=== PATIENT | female | born 1955 | race Caucasian/White ===

== ENCOUNTER → 2017-09-04 13:09 | Outpatient (CLI) | payer OTHER, SELFPAY ==
[2017-09-04 14:44] LABS: Amphetamine Urine VISTA NEGATIVE (<1000 ng/mL); Barbiturate Urine VISTA NEGATIVE (< 200 ng/mL); Benzodiazepine Urine VISTA NEGATIVE (< 200 ng/mL); Cocaine Urine VISTA NEGATIVE (< 300 ng/mL); Ecstacy Urine VISTA NEGATIVE (< 500 ng/mL); Methadone Urine VISTA NEGATIVE (< 300 ng/mL); PCP Urine VISTA NEGATIVE (< 25 ng/mL); THC Urine VISTA NEGATIVE (< 50 ng/mL); Vista UDS pH Range 6
== END ==
PROVIDERS: Family Provider Internal Medicine; PCP Internal Medicine; Visit Provider Anesthesiology Pain Medicine
DX: F11.20 Opioid dependence, uncomplicated (principal)
CPT/HCPCS: 80307

== ENCOUNTER → 2017-09-17 14:21 | Outpatient (CLI) | payer OTHER, SELFPAY ==
[2017-09-17 15:58] LABS: Albumin, Serum 3.1 g/dL (3.2-5.0); BUN 16 mg/dL (7-18); BUN/Creat Ratio 19.3 RATIO (10-20); Creatinine, Serum 0.83 mg/dL (0.55-1.02); EST Glomerular Filtration Rate 74 mL/min (>60); Est Glom Filt Rate - Afr Amer 89 mL/min (>60); Glucose 62 mg/dL (74-106); Protein, Total 6.4 g/dL (6.4-8.2)
[2017-09-17 15:59] LABS: ALB/GLOB Ratio 0.9 RATIO (0.9-2.4); AST(SGOT) 21 U/L (15-37); Alanine Aminotransfer ALT/SGPT 18 U/L (13-56); Alkaline Phosphatase 78 U/L (45-117); Anion Gap 6 (5-15); Calcium,Total 7.7 mg/dL (8.5-10.1); Chloride 108 mmol/L (98-107); Globulin 3.3 g/dL (2.2-4.2); Sodium Level 139 mmol/L (136-145)
[2017-09-17 16:06] LABS: Absolute Lymphocyte Count 1.63 X10^3/ul (0.83-4.51); Basophil# 0.06 X10^3/uL; Basophil% 1.3 % (0-1); Eosinophil# 0.22 X10^3/uL; Eosinophils% 4.9 % (0-5); Hemoglobin 10.9 g/dl (12.0-15.0); Lymphocyte # 1.63 X10^3/ul (4.0); Lymphocyte % 36.5 % (19-41); Mean Corp Hgb Conc 30.3 g/gl (32-36); Mean Corpuscular Hgb 30.7 pg (27.0-32.0); Mean Corpuscular Volume 101.4 fL (81-99); Mean Platelet Vol. 9.5 fl (6.2-12.0); Monocyte# 0.53 X10^3/uL; Monocyte% 11.9 % (0-10); Neutrophil # 2.01 X10^3/uL (2.7-7.7); Platelet Count 200 K/mm3 (150-450); RBC Distribution Width SD 54.8 fl (35.1-43.9); Red Blood Count 3.55 M/mm3 (4.2-5.4); White Blood Count 4.5 K/mm3 (4.4-11.0)
[2017-09-17 16:53] LABS: POSITIVE COUNT NO; POSITIVE DIFFERENTIAL NO; POSITIVE MORPHOLOGY NO
== END ==
PROVIDERS: Family Provider Internal Medicine; PCP Internal Medicine; Visit Provider Internal Medicine Rheumatology
DX: M06.4 Inflammatory polyarthropathy (principal); M06.09 Rheumatoid arthritis without rheumatoid factor, multiple sites; M18.11 Unilateral primary osteoarthritis of first carpometacarpal joint, right hand; M17.0 Bilateral primary osteoarthritis of knee; M21.40 Flat foot [pes planus] (acquired), unspecified foot; L63.9 Alopecia areata, unspecified; M79.7 Fibromyalgia; M81.0 Age-related osteoporosis without current pathological fracture; Z79.899 Other long term (current) drug therapy
CPT/HCPCS: 36415; 80053; 85025

== ENCOUNTER → 2017-09-30 17:09 | Outpatient (CLI) | payer OTHER, SELFPAY ==
[2017-09-30 17:32] LABS: Absolute Lymphocyte Count 2.05 X10^3/ul (0.83-4.51); Absolute Neutrophil Count 2.4 X10^3/uL (2.0-7.7); Basophil# 0.03 X10^3/uL; Basophil% 0.6 % (0-1); Eosinophil# 0.25 X10^3/uL; Eosinophils% 4.8 % (0-5); Hematocrit 37.2 % (37-47); Hemoglobin 11.7 g/dl (12.0-15.0); Lymphocyte # 2.05 X10^3/ul (4.0); Mean Corp Hgb Conc 31.5 g/gl (32-36); Mean Corpuscular Hgb 31.6 pg (27.0-32.0); Mean Corpuscular Volume 100.5 fL (81-99); Mean Platelet Vol. 9.2 fl (6.2-12.0); Monocyte# 0.48 X10^3/uL; Monocyte% 9.1 % (0-10); Neutrophil # 2.44 X10^3/uL (2.7-7.7); Neutrophil % 46.3 % (47-70); POSITIVE COUNT NO; POSITIVE DIFFERENTIAL NO; POSITIVE MORPHOLOGY NO; Platelet Count 150 K/mm3 (150-450); RBC Distribution Width SD 50.3 fl (35.1-43.9); White Blood Count 5.3 K/mm3 (4.4-11.0)
[2017-09-30 18:09] LABS: AST(SGOT) 33 U/L (15-37); Alanine Aminotransfer ALT/SGPT 28 U/L (13-56); Albumin, Serum 3.4 g/dL (3.2-5.0); Alkaline Phosphatase 78 U/L (45-117); Anion Gap 7 (5-15); BUN 22 mg/dL (7-18); CPK Total, Creatine Kinase 50 U/L (26-192); Calcium,Total 8.1 mg/dL (8.5-10.1); Chloride 108 mmol/L (98-107); EST Glomerular Filtration Rate 53 mL/min (>60); Est Glom Filt Rate - Afr Amer 64 mL/min (>60); Globulin 3.3 g/dL (2.2-4.2); Glucose 81 mg/dL (74-106); Protein, Total 6.7 g/dL (6.4-8.2); Sodium Level 138 mmol/L (136-145)
== END ==
PROVIDERS: Family Provider Internal Medicine; PCP Internal Medicine; Visit Provider Internal Medicine
DX: G25.3 Myoclonus (principal); L85.3 Xerosis cutis
CPT/HCPCS: 36415; 80053; 82550; 84443; 85025

== ENCOUNTER → 2017-10-23 12:00 | Outpatient (CLI) | payer OTHER, SELFPAY ==
[2017-10-23 14:53] LABS: Thyroid Stim Hormone (TSH) 0.17 uIU/mL (0.358-3.74)
== END ==
PROVIDERS: Family Provider Internal Medicine; PCP Internal Medicine; Visit Provider Internal Medicine
DX: E03.9 Hypothyroidism, unspecified (principal)
CPT/HCPCS: 36415; 84443

== ENCOUNTER → 2017-10-28 16:40 | Outpatient (CLI) | payer OTHER, SELFPAY ==
--- NOTE | 2017-10-28 16:41 | CT_ITS ---
STUDY: CT ABDOMEN AND PELVIS WITH CONTRAST REASON FOR EXAM: Female, 62 years old. Abdominal pain RADIATION DOSAGE (If Supplied By Facility): CTDIvol = ( 9.99 ) mGy, DLP = ( 487.81 ) mGycm TECHNIQUE: Transaxial images were obtained from the dome of the diaphragm to the symphysis pubis without oral contrast. 100CC ml of Isovue 300 contrast was administered. Sagittal and coronal images were reconstructed. Individualized dose optimization techniques were used for this CT. COMPARISON: January 31, 2016. FINDINGS: The visualized lung bases are unremarkable. The visualized portions of the heart are within normal limits. There is again noted a 5 x 1.5 cm collection lateral to the right hepatic lobe. Status post cholecystectomy. Dilatation of the biliary system. Normal spleen. Normal pancreas. Normal bilateral adrenal glands. Normal right kidney. 2.6 cm cyst in the left kidney. Prior surgery of the stomach. Mile ileus of the small intestine. Fecal retention of the colon. The appendix is not visualized. Calcified abdominal aorta. There is a filter in the inferior vena cava. Normal retroperitoneum. There is again noted a diverticulum of the urinary bladder extending into the left inguinal region. Normal abdominal wall. Vertebral scoliosis. A spinal stimulator is noted. CT/Abdomen/Pelvis WITH Contrast IMPRESSION: Stable fluid collection lateral to the right hepatic lobe. Status post cholecystectomy. Biliary dilatation. Left hepatic cyst. Mild small bowel ileus. Colonic fecal retention. Stable diverticulum of the urinary bladder. Electronically Signed: Chan Ashley DO at 22:50 EDT Tel [phone], Service support ,
== END ==
PROVIDERS: Family Provider Internal Medicine; PCP Internal Medicine; Visit Provider Internal Medicine
DX: R10.84 Generalized abdominal pain (principal)
CPT/HCPCS: 74177; Q9967

== ENCOUNTER → 2017-12-10 14:44 | Outpatient (CLI) | payer OTHER, SELFPAY ==
[2017-12-10 17:47] LABS: Absolute Lymphocyte Count 2.16 X10^3/ul (0.83-4.51); Basophil# 0.04 X10^3/uL; Basophil% 0.8 % (0-1); Eosinophil# 0.13 X10^3/uL; Eosinophils% 2.6 % (0-5); Hematocrit 33.6 % (37-47); Hemoglobin 10.4 g/dl (12.0-15.0); Lymphocyte # 2.16 X10^3/ul (4.0); Lymphocyte % 43.9 % (19-41); Mean Corpuscular Hgb 30.5 pg (27.0-32.0); Mean Corpuscular Volume 98.5 fL (81-99); Mean Platelet Vol. 9.8 fl (6.2-12.0); Monocyte# 0.54 X10^3/uL; Neutrophil # 2.03 X10^3/uL (2.7-7.7); Neutrophil % 41.3 % (47-70); Platelet Count 195 K/mm3 (150-450); RBC Distribution Width CV 13.4 % (11.6-14.6); RBC Distribution Width SD 46.3 fl (35.1-43.9); Red Blood Count 3.41 M/mm3 (4.2-5.4); White Blood Count 4.9 K/mm3 (4.4-11.0)
[2017-12-10 17:51] LABS: POSITIVE COUNT NO; POSITIVE DIFFERENTIAL NO; POSITIVE MORPHOLOGY NO
[2017-12-10 18:06] LABS: ALB/GLOB Ratio 1.2 RATIO (0.9-2.4); AST(SGOT) 18 U/L (15-37); Alanine Aminotransfer ALT/SGPT 24 U/L (13-56); Albumin, Serum 3.4 g/dL (3.2-5.0); Alkaline Phosphatase 73 U/L (45-117); Anion Gap 7 (5-15); BUN 24 mg/dL (7-18); BUN/Creat Ratio 35.5 RATIO (10-20); Calcium,Total 8.5 mg/dL (8.5-10.1); Chloride 110 mmol/L (98-107); Creatinine, Serum 0.68 mg/dL (0.55-1.02); EST Glomerular Filtration Rate 93 mL/min (>60); Est Glom Filt Rate - Afr Amer 113 mL/min (>60); Globulin 2.8 g/dL (2.2-4.2); Glucose 75 mg/dL (74-106); Potassium 3.7 mmol/L (3.5-5.1); Protein, Total 6.2 g/dL (6.4-8.2); Sodium Level 143 mmol/L (136-145)
[2017-12-10 18:12] LABS: Thyroid Stim Hormone (TSH) 0.02 uIU/mL (0.358-3.74)
== END ==
PROVIDERS: Internal Medicine Rheumatology; Family Provider Internal Medicine; PCP Internal Medicine; Visit Provider Internal Medicine
DX: M06.09 Rheumatoid arthritis without rheumatoid factor, multiple sites (principal); M79.7 Fibromyalgia; M18.11 Unilateral primary osteoarthritis of first carpometacarpal joint, right hand; M17.0 Bilateral primary osteoarthritis of knee; M21.40 Flat foot [pes planus] (acquired), unspecified foot; M81.0 Age-related osteoporosis without current pathological fracture; L63.9 Alopecia areata, unspecified; F32.89 Other specified depressive episodes; F41.8 Other specified anxiety disorders; E03.9 Hypothyroidism, unspecified; G47.00 Insomnia, unspecified; Z79.899 Other long term (current) drug therapy
CPT/HCPCS: 36415; 80053; 84443; 85025

== ENCOUNTER → 2017-12-16 14:28 | Outpatient (CLI) | payer OTHER, SELFPAY ==
--- NOTE | 2017-12-16 14:31 | RAD_ITS ---
STUDY: X-RAY - ABDOMEN/PELVIS REASON FOR EXAM: Female, 62 years old. Diarrhea. Abdominal pain. Prior gastric bypass surgery. TECHNIQUE: AP supine and upright views of the abdomen and pelvis. COMPARISON: Comparison is made with prior examination dated February 21, 2016. FINDINGS: There is elevation of the left hemidiaphragm with the stable blunting of the left costophrenic angle. Gas is seen throughout the colon. Air-fluid levels are seen. Surgical clips are seen in the left mid abdomen most likely secondary to prior bowel surgery. There is no demonstrated free abdominal air. A filter is seen within the inferior vena cava. Surgical clips are seen in the epigastric region in keeping with prior gastric bypass surgery. A spinal cord stimulator is seen with the tip at the T10-T11 level. There are calcified phleboliths in the pelvis. Mild levoscoliosis. RAD/Abd Inc Decub and/or Erect IMPRESSION: Air fluid levels within the colon in keeping with a history of diarrhea. Radiographic follow-up is recommended. Electronically Signed: Sj Schaefer MD at 15:17 EDT Tel [phone], Service support ,
[2017-12-16 14:58] LABS: Absolute Lymphocyte Count 1.89 X10^3/ul (0.83-4.51); Absolute Neutrophil Count 1.3 X10^3/uL (2.0-7.7); Basophil# 0.02 X10^3/uL; Basophil% 0.5 % (0-1); Eosinophil# 0.05 X10^3/uL; Eosinophils% 1.3 % (0-5); Hematocrit 36.3 % (37-47); Hemoglobin 11.5 g/dl (12.0-15.0); Lymphocyte # 1.89 X10^3/ul (4.0); Lymphocyte % 50.4 % (19-41); Mean Corp Hgb Conc 31.7 g/gl (32-36); Mean Corpuscular Hgb 30.5 pg (27.0-32.0); Mean Corpuscular Volume 96.3 fL (81-99); Mean Platelet Vol. 10.1 fl (6.2-12.0); Monocyte% 13.3 % (0-10); Neutrophil # 1.29 X10^3/uL (2.7-7.7); Neutrophil % 34.5 % (47-70); Platelet Count 146 K/mm3 (150-450); RBC Distribution Width CV 13.7 % (11.6-14.6); RBC Distribution Width SD 45.7 fl (35.1-43.9); Red Blood Count 3.77 M/mm3 (4.2-5.4); White Blood Count 3.8 K/mm3 (4.4-11.0)
[2017-12-16 15:00] LABS: POSITIVE COUNT NO; POSITIVE DIFFERENTIAL NO; POSITIVE MORPHOLOGY NO
[2017-12-16 15:18] LABS: ALB/GLOB Ratio 1.3 RATIO (0.9-2.4); AST(SGOT) 77 U/L (15-37); Alanine Aminotransfer ALT/SGPT 89 U/L (13-56); Albumin, Serum 3.3 g/dL (3.2-5.0); Alkaline Phosphatase 175 U/L (45-117); Anion Gap 5 (5-15); BUN 13 mg/dL (7-18); BUN/Creat Ratio 20.8 RATIO (10-20); Calcium,Total 7.5 mg/dL (8.5-10.1); Chloride 113 mmol/L (98-107); Creatinine, Serum 0.62 mg/dL (0.55-1.02); EST Glomerular Filtration Rate 102 mL/min (>60); Est Glom Filt Rate - Afr Amer 124 mL/min (>60); Globulin 2.6 g/dL (2.2-4.2); Glucose 68 mg/dL (74-106); Potassium 4.2 mmol/L (3.5-5.1); Protein, Total 5.9 g/dL (6.4-8.2); Sodium Level 143 mmol/L (136-145); Thyroid Stim Hormone (TSH) 0.04 uIU/mL (0.358-3.74)
[2017-12-19 06:59] LABS: Amylase 25 U/L (25-115); Lipase 60 U/L (73-393)
== END ==
PROVIDERS: Family Provider Internal Medicine; PCP Internal Medicine; Visit Provider Internal Medicine
DX: R19.7 Diarrhea, unspecified (principal)
CPT/HCPCS: 74019; 80053; 82150; 83690; 84443; 85025

== ENCOUNTER → 2018-03-07 16:14 | Outpatient (CLI) | payer OTHER, SELFPAY ==
[2018-03-07 17:27] LABS: Absolute Lymphocyte Count 2.23 X10^3/ul (0.83-4.51); Absolute Neutrophil Count 1.7 X10^3/uL (2.0-7.7); Basophil# 0.03 X10^3/uL; Basophil% 0.7 % (0-1); Eosinophil# 0.09 X10^3/uL; Hemoglobin 10.9 g/dl (12.0-15.0); Lymphocyte # 2.23 X10^3/ul (4.0); Lymphocyte % 50.5 % (19-41); Mean Corp Hgb Conc 31.1 g/gl (32-36); Mean Corpuscular Hgb 31.6 pg (27.0-32.0); Mean Corpuscular Volume 101.4 fL (81-99); Mean Platelet Vol. 9.3 fl (6.2-12.0); Monocyte# 0.34 X10^3/uL; Monocyte% 7.7 % (0-10); Neutrophil # 1.73 X10^3/uL (2.7-7.7); Neutrophil % 39.1 % (47-70); Platelet Count 178 K/mm3 (150-450); RBC Distribution Width CV 15.6 % (11.6-14.6); RBC Distribution Width SD 57.4 fl (35.1-43.9); Red Blood Count 3.45 M/mm3 (4.2-5.4); White Blood Count 4.4 K/mm3 (4.4-11.0)
[2018-03-07 17:32] LABS: ALB/GLOB Ratio 1.4 RATIO (0.9-2.4); AST(SGOT) 17 U/L (15-37); Alanine Aminotransfer ALT/SGPT 20 U/L (13-56); Albumin, Serum 3.7 g/dL (3.2-5.0); Alkaline Phosphatase 69 U/L (45-117); Anion Gap 7 (5-15); BUN 23 mg/dL (7-18); BUN/Creat Ratio 26.7 RATIO (10-20); Calcium,Total 8.3 mg/dL (8.5-10.1); Chloride 114 mmol/L (98-107); Creatinine, Serum 0.86 mg/dL (0.55-1.02); EST Glomerular Filtration Rate 70 mL/min (>60); Est Glom Filt Rate - Afr Amer 85 mL/min (>60); Globulin 2.7 g/dL (2.2-4.2); Glucose 53 mg/dL (74-106); Protein, Total 6.4 g/dL (6.4-8.2); Sodium Level 148 mmol/L (136-145)
[2018-03-07 17:37] LABS: POSITIVE COUNT NO; POSITIVE DIFFERENTIAL NO; POSITIVE MORPHOLOGY NO
== END ==
PROVIDERS: Family Provider Internal Medicine; PCP Internal Medicine; Visit Provider Internal Medicine Rheumatology
DX: M06.09 Rheumatoid arthritis without rheumatoid factor, multiple sites (principal); M18.11 Unilateral primary osteoarthritis of first carpometacarpal joint, right hand; M17.0 Bilateral primary osteoarthritis of knee; M79.7 Fibromyalgia; E03.9 Hypothyroidism, unspecified; M21.40 Flat foot [pes planus] (acquired), unspecified foot; M81.0 Age-related osteoporosis without current pathological fracture; L63.9 Alopecia areata, unspecified; F32.89 Other specified depressive episodes; F41.8 Other specified anxiety disorders; Z79.899 Other long term (current) drug therapy
CPT/HCPCS: 36415; 80053; 85025

== ENCOUNTER 2018-05-18 20:58 | Emergency (ER) | payer OTHER, SELFPAY ==
[2018-05-18 20:59] VITALS: BP 125/82; PULSE 75; RESP 18; TEMP 35.9; O2SAT 100
--- NOTE | 2018-05-18 22:44 | CT_ITS ---
STUDY: CT BRAIN WITHOUT CONTRAST REASON FOR EXAM: Female, 62 years old. Confusion. RADIATION DOSAGE (If Supplied By Facility): CTDIvol = ( 44.99 ) mGy, DLP = ( 863.60 ) mGycm TECHNIQUE: Transaxial CT imaging of the brain was performed without administration of intravenous contrast material. Individualized dose optimization techniques were used for this CT. COMPARISON: 03/30/2015. FINDINGS: Normal soft tissue structures. Normal calvarium. Normal size ventricles and extra-axial spaces for the patient's age. Normal white matter tracts of the cerebral hemispheres. Normal basal ganglia and thalami. Normal brainstem. Normal cerebellum. There is no intracranial hemorrhage. There are no findings of an acute ischemic infarction. Normal visualized paranasal sinuses. CT/Brain/Head without Contrast IMPRESSION: Normal unenhanced CT scan of the brain. Electronically Signed: Natalie Rose MD at 23:39 EDT Tel , Service support ,
--- NOTE | 2018-05-18 22:45 | EKG12_ITS ---
Test Reason : CONFUSION Blood Pressure : / mmHG Vent. Rate : 065 BPM Atrial Rate : 065 BPM P-R Int : 206 ms QRS Dur : 088 ms QT Int : 402 ms P-R-T Axes : 054 000 016 degrees QTc Int : 418 ms Normal sinus rhythm Nonspecific T wave abnormality Confirmed by AMAYA GOMEZ, ABDI ([id number]), newspaper editor managing BRADLEY FOFANA ([id number]) on 05/22/2018 10:16:25 AM Referred By: YUE Confirmed By:ABDI CONDE MD
--- NOTE | 2018-05-18 22:46 | ED.VIS.GEN ---
History of Present Illness Chief Complaint: Alt LOC Informant: Patient, Family Onset: Days - 5-6 Context: Sudden Onset Timing: Intermittent - about 3 episodes, Lasts - unk Quality: confused Current Severity: gone Maximum Severity: Severe Narrative: Patient having episodes of feeling spaced out, confused/disoriented, not knowing where she is. She has no idea how long the episodes last. She does not think she is losing consciousness but does not know. Her has witnessed some of these, states that she does not lose consciousness but is confused and that makes her scared. She does not know where she is and that is the main indicator. He knows when she comes out of them but does not know when she has 1 start. They cannot even estimate how long these episodes of lasted. One occurred tonight while she was sitting on the toilet, the other one occurred while she was sitting as well. She has had diarrhea for months, it has been every second or third day on average, but when she has it it is fairly significant, more than 10 times a day. She denies any blood or melena. She denies any lightheadedness, vertiginous symptoms, ear discomfort, vision changes, or peripheral neurologic symptoms at all. She has no other symptoms that she can describe, she has no symptoms physically. Her called her PCP nato because of this episode and the patient being scared, and they were advised to go to the ER. She takes no anticoagulants or antiplatelets. She has no history of stroke or seizures. She does not smoke or drink alcohol. She does no other drugs. No recent medication changes. No recent head injury. No falls at all, and when she feels like this she does not think she feels like she is going to fall. She has had no issues walking. - Past Medical History (1) Chronic lower back pain Status: Chronic (2) Anxiety Status: Chronic (3) B12 deficiency Status: Chronic (4) Chronic pain disorder Status: Chronic (5) Depression Status: Chronic (6) Fibromyalgia Status: Chronic (7) Gastroesophageal reflux disease Status: Chronic (8) Inflammatory polyarthropathy Status: Chronic (9) Osteoporosis Status: Chronic (10) history of empyema Status: Chronic Past Medical History - Allergies and Home Meds Allergies/Adverse Reactions: Allergies doxycycline Allergy (Severe, Verified 05/18/18 21:04) Anaphylaxis THROAT CLOSES UP buprenorphine [From Butrans] Allergy (Mild, Verified 07/23/17 16:12) Unknown famciclovir [From Famvir] Allergy (Mild, Verified 07/23/17 16:12) unknown fentanyl [From Duragesic] Allergy (Mild, Verified 05/18/18 21:04) unkown pregabalin [From Lyrica] Allergy (Mild, Verified 10/24/14 14:09) Other CANT TALK tetracycline Allergy (Mild, Verified 05/18/18 21:04) unknown zonisamide [From Zonegran] Allergy (Mild, Verified 07/23/17 16:12) Unknown latex Allergy (Verified 05/18/18 21:04) Rash Penicillins [PCN] Allergy (Verified 05/18/18 21:04) Anaphylaxis ITCHING RASH AND THROAT CLOSES UP morphine Adverse Reaction (Intermediate, Verified 05/18/18 21:04) Other HALLUCINATES levofloxacin [From Levaquin] Adverse Reaction (Mild, Verified 01/07/15 10:21) Itching CAN TAKE ORAL, BUT CANNOT HAVE IV benzyl-peroxide Allergy (Mild, Uncoded 07/23/17 16:12) unknown mso4 Allergy (Mild, Uncoded 07/23/17 16:12) unknown Primary Care Physician: Monika Robles DO [Primary Care Provider] - Surgical History: appendectomy, cholecystectomy, total knee arthroplasty Lives: Spouse/ Significant Other Smoking Status: Never smoker Alcohol: None Drugs: None - Family History Paternal Family History: Family History (Last Reviewed 07/31/17 @ 11:15 by Desiree Dang) Mother Ovarian cancer Father Black lung Diabetes CAD (coronary artery disease) Lymphoma Sister Myocardial infarction Multiple sclerosis Family History: Reports: No pertinent history Maternal Family History: Family History (Last Reviewed 07/31/17 @ 11:15 by Desiree Dang) Mother Ovarian cancer Father Black lung Diabetes CAD (coronary artery disease) Lymphoma Sister Myocardial infarction Multiple sclerosis Family History: Reports: No pertinent history Review of Systems General: Reports: Weight loss - History of gastric bypass. Weight loss during. Of diarrhea which has been months.. Denies: Chills, Fever, Malaise, Sweats Eyes: Denies: Visual changes - bilaterally, Diplopia ENT: Denies: Bilateral ear pain, Rhinorrhea, Sore throat Cardiovascular: Denies: Chest pain, Palpitations, Heart racing Respiratory: Denies: Dyspnea, Cough, Sputum, Dyspnea on exertion Gastrointestinal: Reports: Diarrhea. Denies: Abdominal pain, Nausea, Vomiting, Melena, Hematochezia Genitourinary: Denies: Dysuria, Hematuria, Frequency Musculoskeletal: Reports: Myalgias - Chronic, Arthralgias - Chronic, Neck pain - Chronic, Back pain - Chronic, Swelling - BLE mild, chronic, Extremity Pain - Chronic Skin: Denies: Rash, Abscess Neurological: Denies: Headache, Weakness, Parasthesia, Numbness Psych: Denies: Suicidal thoughts, Suicidal ideations Endocrine: Denies: Polyuria, Polydipsia, Heat intolerance, Cold intolerance Hematologic: Denies: Easy bruising, Easy bleeding Allergy: Denies: Swelling of the mouth, Swelling of the tongue Physical Exam Vital Signs/Narrative: Vital Signs Temp Pulse Resp BP Pulse Ox 05/18/18 20:59 96.7 F L 75 18 125/82 H 100 Inital Vital Signs reviewed: Yes General: Well nourished, Well developed Head: Normocephalic, Atraumatic Eyes: Perrl, EOMI. Negative for: Pale conjunctiva, Scleral icterus ENT: Moist mucous membranes, No rhinorrhea. Negative for: Sinus tenderness Neck: Supple, Nontender, No lymphadenopathy, No JVD Cardiovascular: Regular rate, Regular rhythm, No murmurs. Negative for: Tachycardia Respiratory: No distress, CTA bilaterally, Chest nontender Abdomen: Soft, Nontender, Nondistended, Normal bowel sounds Back: Nontender, Normal Inspection. Negative for: CVA tenderness Extremities: Nontender, No edema Skin: Normal color, No rash Neurological: Alert, Oriented x3, Cranial nerves II-XII grossly intact, Normal Strength, Normal Sensation, Normal DTR, Normal Gait Psychological: Normal affect Diagnostic/Tx/Re-eval Impressions Brain CT 05/18/18 22:44 IMPRESSION: Normal unenhanced CT scan of the brain. Electronically Signed: Natalie Rose MD at 23:39 EDT Tel , Service support , 05/18/18 22:44 Brain/Head without Contrast [CT] Stat Laboratory Results 05/18/18 05/18/18 05/19/18 23:09 23:09 01:00 WBC 4.9 RBC 3.28 L Hgb 10.9 L Hct 34.5 L MCV 105.2 H MCH 33.2 H MCHC 31.6 L RDW 12.2 RDW Differential 45.1 H Plt Count 147 L MPV 9.6 Immature Gran % (Auto) 0.200 Neut % (Auto) 53.1 Lymph % (Auto) 38.0 Hockley % (Auto) 6.5 Eos % (Auto) 1.6 Baso % (Auto) 0.6 Absolute Neuts (auto) 2.6 Absolute Lymphs (auto) 1.86 Total Counted Not Reportable Sodium 141 Potassium 4.0 Chloride 112 H Carbon Dioxide 26.0 Anion Gap 3 L BUN 25 H Creatinine 0.88 Estim Creat Clear Calc 54.04 Est GFR (MDRD) Af Amer 83 Est GFR (MDRD) Non-Af 69 BUN/Creatinine Ratio 28.4 H Glucose 88 Calcium 7.8 L Troponin I < 0.015 Urine Color Yellow Urine Clarity Clear Urine pH 6.0 Ur Specific Pitkin 1.020 Urine Protein Negative Urine Glucose (UA) Normal Urine Ketones Negative Urine Occult Blood Negative Urine Nitrite Negative Urine Bilirubin Negative Urine Urobilinogen Normal Ur Leukocyte Esterase 25 H Urine RBC 0 SEEN Urine WBC 0 SEEN Ur Squamous Epith Cells 0 SEEN Urine Bacteria 0 SEEN Urine Mucus 0 SEEN - Rhythm Strip Rhythm Strip: Sinus Rhythm Rate: 65 Ectopy: None - EKG Initial EKG Interpretation: Sinus Rhythm, No Acute Injury Pattern, - - nml EKG Prior: Unchanged - Medical Decision Making Aside from slight anemia, she still has a hemoglobin between 10 and 11, and mild prerenal azotemia. The rest of her labs are unremarkable. CT head normal, urinalysis normal. EKG is normal. She remained asymptomatic here in the ED. I do not think she has to be admitted, but I do believe she will require further outpatient workup. Possibly referral to neurology. I think she should start with her PCP for now to manage this. I discussed all this with them and they are comfortable with this plan. She will be in the presence of her all of the time as well, so I do not think she will be unsafe. Encouraged to take a daily aspirin as long as she can tolerate it. Unknown if these are vascular events or not, she has no focal neurologic deficits to suggest a TIA. Subclinical seizures are in the differential diagnosis for unknown reasons, if present. Dysrhythmia is doubtful. Her diarrhea could be causing a little dehydration, her orthostatics were borderline positive and she states she felt a little lightheaded, but there is no dizziness in any form associated with her transient confusion. I think she can continue to hydrate orally and was encouraged to drink plenty of fluids. ED Disposition - Plan for ED Patient: Disposition: Home or Assisted Living Chief Complaint: Alt LOC Diagnosis: Diarrhea, Transient confusion Instructions: ED Altered Loc Referrals: Travis,Monika, DO [Primary Care Provider] - As soon as possible Additional Instructions: Take aspirin 325 mg once daily until seen by your doctor.
[2018-05-18 23:32] LABS: Absolute Lymphocyte Count 1.86 X10^3/ul (0.83-4.51); Absolute Neutrophil Count 2.6 X10^3/uL (2.0-7.7); Basophil# 0.03 X10^3/uL; Basophil% 0.6 % (0-1); Eosinophil# 0.08 X10^3/uL; Eosinophils% 1.6 % (0-5); Hematocrit 34.5 % (37-47); Hemoglobin 10.9 g/dl (12.0-15.0); Lymphocyte # 1.86 X10^3/ul (4.0); Mean Corp Hgb Conc 31.6 g/gl (32-36); Mean Corpuscular Hgb 33.2 pg (27.0-32.0); Mean Corpuscular Volume 105.2 fL (81-99); Mean Platelet Vol. 9.6 fl (6.2-12.0); Monocyte# 0.32 X10^3/uL; Monocyte% 6.5 % (0-10); Neutrophil % 53.1 % (47-70); POSITIVE COUNT NO; POSITIVE DIFFERENTIAL NO; POSITIVE MORPHOLOGY NO; Platelet Count 147 K/mm3 (150-450); RBC Distribution Width CV 12.2 % (11.6-14.6); RBC Distribution Width SD 45.1 fl (35.1-43.9); Red Blood Count 3.28 M/mm3 (4.2-5.4); White Blood Count 4.9 K/mm3 (4.4-11.0)
[2018-05-18 23:34] LABS: Anion Gap 3 (5-15); BUN 25 mg/dL (7-18); BUN/Creat Ratio 28.4 RATIO (10-20); Calcium,Total 7.8 mg/dL (8.5-10.1); Chloride 112 mmol/L (98-107); Creatinine, Serum 0.88 mg/dL (0.55-1.02); EST Glomerular Filtration Rate 69 mL/min (>60); Est Glom Filt Rate - Afr Amer 83 mL/min (>60); Estimated Creatinine Clearance 54.04 ml/min; Glucose 88 mg/dL (74-106); Sodium Level 141 mmol/L (136-145)
[2018-05-18 23:40] VITALS: BP 122/70; BP 96/83; BP 98/60; PULSE 64; PULSE 66; PULSE 74
[2018-05-19 01:05] LABS: Bacteria 0 SEEN /hpf (None Seen); Mucous, Urine 0 SEEN /hpf (<or=2+); Red Blood Cells-Urine 0 SEEN /hpf (0-5); Squamous Epithelial Cells - UA 0 SEEN /hpf (5-10); White Blood Cells 0 SEEN /hpf (0-5)
[2018-05-19 01:20] VITALS: BP 119/73; PULSE 67; RESP 17; O2SAT 97
[2018-05-19 01:40] LABS: Color, Urine Yellow (Yellow); Glucose, Dipstick Normal (Normal); Ketone-Dipstick Negative (Negative); Leukocyte Esterase-Dipstick 25 /ul (Negative); Nitrite-Dipstick Negative (Negative); Occult Blood-Urine Negative /ul (Negative); Protein-Dipstick Negative (Negative); Urine Bilirubin Dipstick Negative (Negative); Urine Clarity Clear (Clear); Urine Urobilinogen Normal (Normal)
[2018-05-19 02:10] VITALS: RESP 18
== END 2018-05-19 02:11 | disposition home or self-care (01) ==
PROVIDERS: Emergency Provider Emergency Medicine; Family Provider Internal Medicine; PCP Internal Medicine
DX: R19.7 Diarrhea, unspecified (principal); R41.0 Disorientation, unspecified; M54.5 Low back pain; G89.29 Other chronic pain; M06.4 Inflammatory polyarthropathy; E53.8 Deficiency of other specified B group vitamins; D64.9 Anemia, unspecified; M79.7 Fibromyalgia; K21.9 Gastro-esophageal reflux disease without esophagitis; M81.0 Age-related osteoporosis without current pathological fracture; F32.9 Major depressive disorder, single episode, unspecified; F41.9 Anxiety disorder, unspecified; Z79.899 Other long term (current) drug therapy; Z98.84 Bariatric surgery status
CPT/HCPCS: 70450; 80048; 81001; 84484; 85025; 93005; 99284

== ENCOUNTER → 2018-05-20 11:46 | Outpatient (CLI) | payer OTHER, SELFPAY ==
--- NOTE | 2018-05-20 12:02 | RAD_ITS ---
STUDY: X-RAY - ACUTE ABDOMINAL SERIES REASON FOR EXAM: Female, 62 years old. Diarrhea. TECHNIQUE: Single view of the chest. Supine, and erect view(s) of the abdomen were obtained. COMPARISON: 12/16/2017 FINDINGS: The lungs are clear and expanded. Mildly elevated left hemidiaphragm Normal size heart. Normal mediastinum and jung. Normal visualized pulmonary arteries. Normal visualized aortic arch and descending thoracic aorta. There is an abundance of fecal material throughout the colon. The soft tissue structures of the abdomen and pelvis are unremarkable. IVC filter is noted. Spinal stimulator device. Numerous surgical clips in the midabdomen. There are diffuse degenerative changes of the visualized lumbar spine. RAD/Acute Abdomen Inc Chest IMPRESSION: No evidence of small bowel obstruction. Significant fecal retention throughout the colon. Lungs are clear. Electronically Signed: Adalberto Harrell DO at 11:58 EDT Tel , Service support ,
== END ==
PROVIDERS: Family Provider Internal Medicine; PCP Internal Medicine; Referring Provider Internal Medicine; Visit Provider Internal Medicine
DX: R19.7 Diarrhea, unspecified (principal)
CPT/HCPCS: 74022

== ENCOUNTER → 2018-05-22 16:56 | Outpatient (CLI) | payer OTHER, SELFPAY ==
--- NOTE | 2018-05-22 16:58 | RAD_ITS ---
STUDY: X-RAY - LEFT SHOULDER REASON FOR EXAM: Female, 62 years old. Chronic pain TECHNIQUE: Three view(s) of the LEFT shoulder were obtained. COMPARISON: October 26, 2016 FINDINGS: There are mild degenerative changes in the glenohumeral joint. Again seen is a high riding humerus. There is minimal widening of the acromioclavicular joint. No acute abnormalities are seen in the visualized clavicle. There are erosive changes in the greater tuberosity. The soft tissues are unremarkable. There are old rib fractures on the left side. RAD/Shoulder min 2 Views IMPRESSION: There are erosive changes in the greater tuberosity, likely degenerative. There is minimal chronic AC joint separation. Electronically Signed: Suzette Phillips MD at 17:10 EDT Tel Direct: [phone], Service support ,
--- NOTE | 2018-05-22 16:58 | RAD_ITS ---
STUDY: X-RAY - RIGHT SHOULDER REASON FOR EXAM: Female, 62 years old. Chronic pain TECHNIQUE: Three view(s) of the RIGHT shoulder were obtained. COMPARISON: October 26, 2016 FINDINGS: The glenohumeral joint is within normal limits. There is degenerative arthrosis of the acromioclavicular joint without inferior osseous spur formation. No acute abnormalities are seen in the visualized clavicle. There are erosive changes in the greater tuberosity. There are subchondral cysts in the right humeral head. The soft tissues are unremarkable. The visualized lung and ribs are unremarkable. RAD/Shoulder min 2 Views IMPRESSION: There are erosive changes in the greater tuberosity and distal clavicle, likely degenerative. The findings have progressed compared to the prior study. Electronically Signed: Suzette Phillips MD at 17:08 EDT Tel Direct: [phone], Service support ,
== END ==
PROVIDERS: Family Provider Internal Medicine; PCP Internal Medicine; Referring Provider Anesthesiology Pain Medicine; Visit Provider Anesthesiology Pain Medicine
DX: M25.512 Pain in left shoulder (principal); M25.511 Pain in right shoulder
CPT/HCPCS: 73030

== ENCOUNTER → 2018-05-26 09:39 | Outpatient (CLI) | payer OTHER, SELFPAY ==
[2018-05-26 14:09] LABS: Absolute Lymphocyte Count 2.52 X10^3/ul (0.83-4.51); Basophil# 0.03 X10^3/uL; Basophil% 0.6 % (0-1); Hematocrit 36.7 % (37-47); Hemoglobin 11.3 g/dl (12.0-15.0); Lymphocyte # 2.52 X10^3/ul (4.0); Lymphocyte % 50.2 % (19-41); Mean Corp Hgb Conc 30.8 g/gl (32-36); Mean Corpuscular Hgb 31.8 pg (27.0-32.0); Mean Corpuscular Volume 103.4 fL (81-99); Mean Platelet Vol. 9.7 fl (6.2-12.0); Monocyte# 0.34 X10^3/uL; Monocyte% 6.8 % (0-10); Neutrophil # 2.02 X10^3/uL (2.7-7.7); Neutrophil % 40.2 % (47-70); Platelet Count 176 K/mm3 (150-450); RBC Distribution Width CV 12.8 % (11.6-14.6); RBC Distribution Width SD 48.3 fl (35.1-43.9); Red Blood Count 3.55 M/mm3 (4.2-5.4)
[2018-05-26 14:13] LABS: POSITIVE COUNT NO; POSITIVE DIFFERENTIAL NO; POSITIVE MORPHOLOGY NO
[2018-05-26 14:33] LABS: Vitamin B12 224 pg/mL (211-911)
[2018-05-26 15:15] LABS: ALB/GLOB Ratio 1.4 RATIO (0.9-2.4); AST(SGOT) 31 U/L (15-37); Alanine Aminotransfer ALT/SGPT 28 U/L (13-56); Albumin, Serum 3.7 g/dL (3.2-5.0); Alkaline Phosphatase 78 U/L (45-117); Anion Gap 6 (5-15); BUN 23 mg/dL (7-18); Chloride 111 mmol/L (98-107); Creatinine, Serum 0.88 mg/dL (0.55-1.02); EST Glomerular Filtration Rate 68 mL/min (>60); Est Glom Filt Rate - Afr Amer 83 mL/min (>60); Globulin 2.7 g/dL (2.2-4.2); Glucose 59 mg/dL (74-106); Potassium 4.1 mmol/L (3.5-5.1); Protein, Total 6.4 g/dL (6.4-8.2); Sodium Level 144 mmol/L (136-145)
--- NOTE | 2018-05-27 11:07 | EEG ---
- Electroencephalogram This is an 18 channel EEG performed on this 62-year-old female with history of respiratory failure. There is a history of altered consciousness as well apparently prior to rest joo failure. 18 channel echoencephalogram was performed utilizing the International 10-20 electrode placement protocol as well as EKG reference leads, hyperventilation and photic stimulation. According to the environmental engineering technician's notes there is good compliance with hyperventilation which was performed for 2 minutes with no lateralizing Repliform changes in the post hyperventilatory phase is unremarkable. The patient remained awake throughout the recording. Background activity is 8-10 Hz medically in the posterior leads which attenuates with eye-opening. There are no lateralizing or epileptiform changes. EKG is normal sinus rhythm throughout the recording. Photic stimulation does generate a normal symmetric driving response in the posterior leads. At times there is beta range activity as well superimposed which is likely medication effect. Impression: Abnormal electroencephalogram due to the presence of beta range activity which is likely medication effect there are no epileptiform changes
--- NOTE | 2018-05-27 11:10 | EEG_ITS ---
- Electroencephalogram This is an 18 channel EEG performed on this 62-year-old female with history of respiratory failure. There is a history of altered consciousness as well apparently prior to rest joo failure. 18 channel echoencephalogram was performed utilizing the International 10-20 electrode placement protocol as well as EKG reference leads, hyperventilation and photic stimulation. According to the social services technician's notes there is good compliance with hyperventilation which was performed for 2 minutes with no lateralizing Repliform changes in the post hyperventilatory phase is unremarkable. The patient remained awake throughout the recording. Background activity is 8-10 Hz medically in the posterior leads which attenuates with eye- opening. There are no lateralizing or epileptiform changes. EKG is normal sinus rhythm throughout the recording. Photic stimulation does generate a normal symmetric driving response in the posterior leads. At times there is beta range activity as well superimposed which is likely medication effect. Impression: Abnormal electroencephalogram due to the presence of beta range activity which is likely medication effect there are no epileptiform changes
== END ==
PROVIDERS: Family Provider Internal Medicine; PCP Internal Medicine; Referring Provider Internal Medicine; Visit Provider Internal Medicine
DX: R41.3 Other amnesia (principal); R19.7 Diarrhea, unspecified
CPT/HCPCS: 36415; 80053; 82607; 82746; 84443; 85025; 95819

== ENCOUNTER → 2018-06-02 13:00 | Outpatient (CLI) | payer OTHER, SELFPAY ==
--- NOTE | 2018-06-02 13:03 | CDU_ITS ---
Reason For Study: Carotid Stenosis Rt. Velocities/BP Lt. Velocities/BP Prox CCA 77.4/18.2 cm/sec. Prox CCA 107/22 cm/sec. Mid CCA 90.3/28.1 cm/sec. Mid CCA 90.4/21.2 cm/sec. Dist CCA 86.2/18.2 cm/sec. Dist CCA 87.2/27.5 cm/sec. Prox ICA 97.2/29.5 cm/sec. Prox ICA 85/32.2 cm/sec. Mid ICA 97.4/40.9 cm/sec. Mid ICA 89.7/33.4 cm/sec. Dist ICA 116/42.4 cm/sec. Dist ICA 85/35.2 cm/sec. Rt. ICA/CCA = 1.32. Lt. ICA/CCA = 0.99. Prox ECA 122/18.7 cm/sec. Prox ECA 171/28.5 cm/sec. Rt. Vert. 41.6/15.7 cm/sec. Lt. Vert. 78.6/19.3 cm/sec. Right Extracranial There is no significant atherosclerotic plaque noted in the right common carotid artery. There is no significant atherosclerotic plaque noted in the right internal carotid artery. There is no significant atherosclerotic plaque noted in the right external carotid artery. Antegrade flow is noted in the right vertebral artery. There is heterogeneous, irregular atherosclerotic plaque noted in the right bulb. Left Extracranial There is intimal thickening but no significant atherosclerotic plaque noted in the left common carotid artery. There is intimal thickening but no significant atherosclerotic plaque noted in the left internal carotid artery. There is no significant atherosclerotic plaque noted in the left external carotid artery. Antegrade flow is noted in the left vertebral artery. There is heterogeneous, irregular atherosclerotic plaque noted in the left bulb. Procedure Carotid Duplex 74792. Exam performed in department. Interpretation Summary Mild (<50%) stenosis right extracranial internal carotid. Mild (<50%) stenosis left extracranial internal carotid. Flow within the vertebral arteries is antegrade bilaterally. Ordering Physician: Monika Robles Referring Physician: Monika Robles Performed By: Marietta Colby RVT and Student
[2018-06-02 14:27] LABS: Absolute Neutrophil Count 2.3 X10^3/uL (2.0-7.7); Basophil# 0.03 X10^3/uL; Basophil% 0.7 % (0-1); Eosinophil# 0.09 X10^3/uL; Hematocrit 33.9 % (37-47); Hemoglobin 10.6 g/dl (12.0-15.0); Lymphocyte % 38.2 % (19-41); Mean Corp Hgb Conc 31.3 g/gl (32-36); Mean Corpuscular Hgb 32.6 pg (27.0-32.0); Mean Corpuscular Volume 104.3 fL (81-99); Mean Platelet Vol. 9.8 fl (6.2-12.0); Monocyte# 0.36 X10^3/uL; Monocyte% 8.1 % (0-10); Neutrophil # 2.26 X10^3/uL (2.7-7.7); Neutrophil % 50.8 % (47-70); POSITIVE COUNT NO; POSITIVE DIFFERENTIAL NO; POSITIVE MORPHOLOGY NO; Platelet Count 157 K/mm3 (150-450); RBC Distribution Width CV 12.6 % (11.6-14.6); RBC Distribution Width SD 46.5 fl (35.1-43.9); Red Blood Count 3.25 M/mm3 (4.2-5.4); White Blood Count 4.5 K/mm3 (4.4-11.0)
[2018-06-02 14:52] LABS: ALB/GLOB Ratio 1.3 RATIO (0.9-2.4); AST(SGOT) 14 U/L (15-37); Alanine Aminotransfer ALT/SGPT 30 U/L (13-56); Albumin, Serum 3.5 g/dL (3.2-5.0); Alkaline Phosphatase 71 U/L (45-117); Anion Gap 9 (5-15); BUN 30 mg/dL (7-18); BUN/Creat Ratio 34.1 RATIO (10-20); Calcium,Total 7.9 mg/dL (8.5-10.1); Chloride 112 mmol/L (98-107); Creatinine, Serum 0.88 mg/dL (0.55-1.02); EST Glomerular Filtration Rate 69 mL/min (>60); Est Glom Filt Rate - Afr Amer 83 mL/min (>60); Globulin 2.7 g/dL (2.2-4.2); Glucose 82 mg/dL (74-106); Potassium 3.8 mmol/L (3.5-5.1); Protein, Total 6.2 g/dL (6.4-8.2); Sodium Level 146 mmol/L (136-145)
== END ==
PROVIDERS: Family Provider Internal Medicine; PCP Internal Medicine; Referring Provider Internal Medicine; Visit Provider Internal Medicine
DX: I65.23 Occlusion and stenosis of bilateral carotid arteries (principal); M06.09 Rheumatoid arthritis without rheumatoid factor, multiple sites; M18.11 Unilateral primary osteoarthritis of first carpometacarpal joint, right hand; M17.0 Bilateral primary osteoarthritis of knee; M79.7 Fibromyalgia; M21.40 Flat foot [pes planus] (acquired), unspecified foot; M81.0 Age-related osteoporosis without current pathological fracture; L63.9 Alopecia areata, unspecified; Z79.899 Other long term (current) drug therapy
CPT/HCPCS: 36415; 80053; 85025; 93880

== ENCOUNTER → 2018-06-10 13:37 | Outpatient (CLI) | payer OTHER, SELFPAY ==
--- NOTE | 2018-06-10 13:45 | MRI_ITS ---
STUDY: MRI BRAIN WITH AND WITHOUT CONTRAST REASON FOR EXAM: Female, 62 years old. Amnesia TECHNIQUE: Standardized multiplanar fat and water weighted pulse sequences were obtained. 6 ml of Gadavist contrast material was administered intravenously for the contrast portion of the examination. COMPARISON: CT of the head dated 05/18/2018 FINDINGS: There is mild cerebral atrophy with widening of the extra-axial spaces and ventricular dilatation. Normal white matter tracts of the supratentorial brain. There is no evidence for recent intracranial ischemia or other cause of cytotoxic edema on diffusion weighted imaging (DWI). Normal bilateral basal ganglia. Normal thalami. There is no extra-axial fluid accumulation. Normal flow voids within the major intracranial circulation suggesting patency by spin echo criteria. Normal venous enhancement. There is no enhancing intra-axial or extra-axial abnormality. Normal sella turcica, pituitary gland, infundibular stalk, optic chiasm and hypothalamus. Normal tectal plate and pineal gland. Normal midbrain, garrick and medulla. Normal cerebellum. Normal basal cisterns. Normal bilateral temporal bones. Normal bilateral internal auditory canals. No demonstrated orbital abnormality, within the constraints of a routine brain study. Normal visualized paranasal sinuses. Normal calvarium and skull base. Normal visualized soft tissue structures. Normal visualized upper cervical spine. There is NO abnormal enhancement. MRI/Brain W/WO Contrast IMPRESSION: Normal unenhanced and enhanced MRI of the brain. Electronically Signed: Jason Olmedo MD at 5:34 EST , Service support ,
== END ==
PROVIDERS: Family Provider Internal Medicine; PCP Internal Medicine; Referring Provider Internal Medicine; Visit Provider Internal Medicine
DX: R41.3 Other amnesia (principal)
CPT/HCPCS: 70553; A9585

== ENCOUNTER → 2018-07-16 14:53 | Outpatient (CLI) | payer OTHER, SELFPAY ==
--- NOTE | 2018-07-16 15:10 | RAD_ITS ---
STUDY: X-RAY - THORACIC SPINE REASON FOR EXAM: Female, 62 years old. Chronic back pain. TECHNIQUE: 3 view(s) of the thoracic spine were obtained. COMPARISON: None. FINDINGS: There is a mild increase in the normal thoracic kyphosis. There is no substantial scoliosis. Normal thoracic vertebrae and endplates. There is multilevel disc space narrowing of the thoracic spine. There is no evidence of acute fracture or loss of vertebral axial height. The soft tissue structures are unremarkable. There are surgical changes in the upper abdomen at the area of the proximal stomach and in the gallbladder fossa. An IVC filter is seen to the right of the L2 vertebra. 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 Electronically Signed: José Miguel Heart DO at 16:00 EST Tel [phone], Service support ,
--- OUTSIDE RECORDS SUMMARY | 2018-09-01 20:21 | XMS RPT_ITS ---
:1955 Author Organization [place] Support Name Relationship Address Phone R Unavailable Unavailable Unavailable BRUCE ALVARADO Unavailable [address] + [place] [address] CHRISTIANO, RANJEET Unavailable [address] + [place] [address] R Unavailable Unavailable Unavailable BRUCE ALVARADO Unavailable [address] + [place] [address] CHRISTIANO, RANJEET Unavailable [address] + [place] [address] R Unavailable Unavailable Unavailable BRUCE ALVARADO Unavailable [address] + [place] [address] CHRISTIANO, RANJEET Unavailable [address] + [place] [address] R Unavailable Unavailable Unavailable BRUCE ALVARADO Unavailable [address] + [place] [address] CHRISTIANO, RANJEET Unavailable [address] + [place] [address] R Unavailable Unavailable Unavailable BRUCE ALVARADO Unavailable [address] + [place] [address] CHRISTIANO, RANJEET Unavailable [address] + [place] [address] R Unavailable Unavailable Unavailable BRUCE ALVARADO Unavailable [address] + [place] [address] CHRISTIANO, RANJEET Unavailable [address] + [place] [address] R Unavailable Unavailable Unavailable BRUCE ALVARADO Unavailable [address] + [place] [address] CHRISTIANO, RANJEET Unavailable [address] + [place] [address] R Unavailable Unavailable Unavailable JENNIFER ALVARADONIS Unavailable [address] + [place] [address] CHRISTIANO, RANJEET Unavailable [address] + [place] [address] R Unavailable Unavailable Unavailable JENNIFER ALVARADONIS Unavailable [address] + [place] [address] CHRISTIANO, RANJEET Unavailable [address] + [place] [address] R Unavailable Unavailable Unavailable JENNIFER ALVARADONIS Unavailable [address] + [place] [address] CHRISTIANO, RANJEET Unavailable [address] + [place] [address] R Unavailable Unavailable Unavailable JENNIFER ALVARADONIS Unavailable [address] + [place] [address] CHRISTIANO, RANJEET Unavailable [address] + [place] [address] R Unavailable Unavailable Unavailable JENNIFER ALVARADONIS Unavailable [address] + [place] [address] CHRISTIANO, RANJEET Unavailable [address] + [place] [address] R Unavailable Unavailable Unavailable JENNIFER ALVARADONIS Unavailable [address] + [place] [address] CHRISTIANO, RANJEET Unavailable [address] + [place] [address] R Unavailable Unavailable Unavailable JENNIFER ALVARADONIS Unavailable [address] + [place] [address] CHRISTIANO, RANJEET Unavailable [address] + [place] [address] R Unavailable Unavailable Unavailable JENNIFER ALVARADONIS Unavailable [address] + [place] [address] CHRISTIANO, RANJEET Unavailable [address] + [place] [address] R Unavailable Unavailable Unavailable JENNIFER ALVARADONIS Unavailable [address] + [place] [address] CHRISTIANO, RANJEET Unavailable [address] + [place] [address] R Unavailable Unavailable Unavailable BRUCE ALVARADO Unavailable [address] + [place] [address] CHRISTIANO, RANJEET Unavailable [address] + [place] [address] R Unavailable Unavailable Unavailable JENNIFER ALVARADONIS Unavailable [address] + [place] [address] CHRISTIANO, RANJEET Unavailable [address] + [place] [address] Care Team Providers Name Role Phone Fast DO, Monika A Attending Unavailable Fast DO, Monika A Referring Unavailable Fast DO, Monika A Consulting Unavailable Basali, Ayman Attending Unavailable Basali, Ayman Referring Unavailable Fast, Monika Primary Care Unavailable Sid Toure Attending Unavailable Sid Toure Referring Unavailable Fast, Monika Primary Care Unavailable Basali, Eugeniaman Attending Unavailable Basali, Ayman Referring Unavailable Fast, Monika Primary Care Unavailable Vellanki, Nguyen Attending Unavailable Vellanki, Nguyen Referring Unavailable Fast, Monika Primary Care Unavailable Fast, Monika Attending Unavailable Fast, Monika Referring Unavailable Fast, Monika Primary Care Unavailable Fast, Monika Attending Unavailable Fast, Monika Primary Care Unavailable Fast, Monika Attending Unavailable Fast, Monika Primary Care Unavailable Fast, Monika Referring Unavailable Vellanki, Nguyen Consulting Unavailable Fast, Monika Attending Unavailable Fast, Monika Referring Unavailable Fast, Monika Primary Care Unavailable Fast, Monika Attending Unavailable Fast, Monika Primary Care Unavailable Fast, Monika Referring Unavailable Fast, Monika Attending Unavailable Fast, Monika Primary Care Unavailable Vellanki, Nguyen Attending Unavailable Vellanki, Nguyen Referring Unavailable Fast, Monika Primary Care Unavailable Fast, Monika Primary Care Unavailable MEG TURNER Unavailable Fast, Monika Attending Unavailable Fast, Monika Referring Unavailable Fast, Monika Primary Care Unavailable Basali, Ayman Attending Unavailable Basali, Ayman Referring Unavailable Fast, Monika Primary Care Unavailable Fast, Monika Attending Unavailable Fast, Monika Referring Unavailable Fast, Monika Primary Care Unavailable Fast, Monika Attending Unavailable Fast, Monika Referring Unavailable Fast, Monika Primary Care Unavailable Fast, Monika Attending Unavailable Fast, Monika Referring Unavailable Fast, Monika Primary Care Unavailable Nguyen Casey Consulting Unavailable Fast, Monika Attending Unavailable Fast, Monika Referring Unavailable Fast, Monika Primary Care Unavailable PROBLEMS PROBLEMS DATE TYPE CONDITION / CODE ATTENDING STATUS SOURCE 06/02/2018 Unknown M06.09 - Rheumatoid Fast, Monika Active [facility] arthritis without Community rheumatoid factor, Hospital multiple sites / Repository M06.09(ICD-10) 06/02/2018 Unknown Z79.899 - Other long Fast, Monika Active [facility] term (current) drug Community therapy / Hospital Z79.899(ICD-10) Repository 06/02/2018 Unknown M79.7 - Fibromyalgia Fast, Monika Active [facility] / M79.7(ICD-10) Community Hospital Repository 06/02/2018 Unknown M18.11 - Unilateral Fast, Monika Active [facility] primary Community osteoarthritis of Hospital first carpometacarpal Repository joint, right hand / M18.11(ICD-10) 06/02/2018 Unknown M17.0 - Bilateral Fast, Monika Active [facility] primary Community osteoarthritis of Hospital knee / M17.0(ICD-10) Repository 06/02/2018 Unknown M21.40 - Flat foot Fast, Monika Active [facility] [pes planus] Community (acquired), Hospital unspecified foot / Repository M21.40(ICD-10) 06/02/2018 Unknown M81.0 - Age-related Fast, Monika Active [facility] osteoporosis without Community current pathological Hospital fracture / Repository M81.0(ICD-10) 06/02/2018 Unknown L63.9 - Alopecia Fast, Monika Active [facility] areata, unspecified / Community L63.9(ICD-10) Hospital Repository 05/26/2018 Unknown R19.7 - Diarrhea, Fast, Monika Active [facility] unspecified / Community R19.7(ICD-10) Hospital Repository 12/10/2017 Unknown F41.8 - Other Fast, Monika Active [facility] specified anxiety Community disorders / Hospital F41.8(ICD-10) Repository 12/10/2017 Unknown E03.9 - Fast, Monika Active [facility] Hypothyroidism, Community unspecified / Hospital E03.9(ICD-10) Repository 12/10/2017 Unknown G47.00 - Insomnia, Fast, Monika Active [facility] unspecified / Community G47.00(ICD-10) Hospital Repository 10/28/2017 Unknown R10.84 - Generalized Monika Robles Active [facility] abdominal pain / Community R10.84(ICD-10) Hospital Repository 09/17/2017 Unknown 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 / Community M06.4(ICD-10) Hospital Repository 09/04/2017 Unknown F11.20 - Opioid BasalMarilyn turner Active [facility] dependence, Community uncomplicated / Hospital F11.20(ICD-10) Repository PROCEDURES PROCEDURES No Procedure Records FoundRESULTS RESULTS SCREENING MAMM (CAD), Observed: 08/15/2018 Status: F Source: CHIP BILAT 3:02 PM [facility] REPOSITORY [facility] Imaging Services [address] [place] [address] SCREENING MAMM (CAD), BIL MR#: [id number] Acct: [id number] Name: ADIN ALVARADO Rep #: [id number] : 1955 F 62 From: Sj Schaefer MD PCP: Monika Robles DO Status: REG CLI Study: SCREENING MAMM (CAD), BILAT Date of Exam: 08/15/18 Exam# [id number] Ordering Dr: Monika Robles DO MAMMOGRAPHY - BILATERAL SCREENING REASON FOR EXAM: Female, 62 years old. Routine annual screening examination. PERTINENT HISTORY: Sisters with breast cancer. Aunt with breast cancer. Bilateral breast implants. TECHNIQUE: Digital bilateral breast janna (3D mammographic acquisition) in the CC and MLO projections. 2-D mediolateral oblique (MLO) and craniocaudad (CC) views of both breasts were obtained. CAD: Full Field Digital Mammography with Computer Added Detection was performed. COMPARISON: Comparison is made with prior study dated April 24, 2017 and April 23, 2016. FINDINGS: Breast Composition: The breasts are heterogeneously dense, which may obscure small masses. There are no dominant masses or suspicious calcifications. Stable appearance of the bilateral breast implants. No other significant abnormalities are identified. There has been no significant change since the prior study. BI/SCREENING MAMM (CAD), BILAT IMPRESSION: Stable bilateral screening mammogram. Yearly follow-up mammogram recommended. (A) ASSESSMENT CATEGORY: BIRADS Category 2: Benign. A letter regarding these results will be sent to the patient by the facility within 30 days. Approximately 10% of breast cancers are not detected by mammography. A normal mammogram should not delay biopsy of a clinically suspicious abnormality. [id number] Electronically Signed: Sj Schaefer MD at 8:34 EST Tel [phone], Service support , CC: Monika Robles DO Inspector Floor: Signed 4 HR GLUCOSE TOLERANCE Collected: 08/11/2018 Status: F Source: CHIP TEST 7:10 AM [facility] REPOSITORY Order Comment: Is Patient Fasting? Y TYPE CODE TESTS RESULT OUT OF RANGE REFERENCE UNITS LAB L501.0520 74-106 mg/dL Normal GLU 87 GTT-FASTING Result Comment: GLUCOSE TOLERANCE TEST Reference Interval Non- Adults Fasting 74 - 106 30 minutes 110 - 170 1 hour 120 - 170 2 hour 74 - 120 3 hour 74 - 106 4 hour 74 - 106 5 hour 74 - 106 LAB L501.0630 110-170 mg/dL High GLU GTT-30 min. 215 LAB L501.0540 120-170 mg/dL Low GLU GTT-1 HOUR 95 LAB L501.0550 70-120 mg/dL Normal GLU GTT-2 HOUR 80 LAB L501.0560 74-106 mg/dL Low GLU GTT-3 HOUR 72 LAB L501.0570 74-106 mg/dL Normal GLU GTT-4 HOUR 81 Performed By: #### L500.4800 #### [facility] [address] [place] [address]. [place], [address] THORACIC SPINE 3 Observed: 07/16/2018 Status: F Source: [place] VIEWS 2:56 PM [facility] REPOSITORY [facility] Imaging Services [address] [place], [place] [address] [address] Thoracic Spine 3 Views MR#: [id number] Acct: [id number] Name: ADIN ALVARADO Rep #: [id number] : 1955 F 62 From: José Miguel Heart DO PCP: Monika Robles DO Status: REG CLI Study: Thoracic Spine 3 Views Date of Exam: 07/16/18 Exam# [id number] Ordering Dr: Marilyn Blakely MD STUDY: X-RAY - THORACIC SPINE REASON FOR EXAM: Female, 62 years old. Chronic back pain. TECHNIQUE: 3 view(s) of the thoracic spine were obtained. COMPARISON: None. FINDINGS: There is a mild increase in the normal thoracic kyphosis. There is no substantial scoliosis. Normal thoracic vertebrae and endplates. There is multilevel disc space narrowing of the thoracic spine. There is no evidence of acute fracture or loss of vertebral axial height. The soft tissue structures are unremarkable. There are surgical changes in the upper abdomen at the area of the proximal stomach and in the gallbladder fossa. An IVC filter is seen to the right of the L2 vertebra. 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 Electronically Signed: José Miguel Heart DO at 16:00 EST Tel [phone], Service support , CC: Marilyn Blakely MD; Monika Robles DO Inspector Floor: Signed BRAIN W/WO CONTRAST Observed: 06/10/2018 Status: F Source: CHIP 1:42 PM [facility] REPOSITORY [facility] Imaging Services [address] [place] [address] Brain W/WO Contrast MR#: [id number] Acct: [id number] Name: ADIN ALVARADO Rep #: [id number] : 1955 F 62 From: Jason Olmedo PCP: Monika Robles DO Status: REG CLI Study: Brain W/WO Contrast Date of Exam: 06/10/18 Exam# [id number] Ordering Dr: Monika Robles DO STUDY: MRI BRAIN WITH AND WITHOUT CONTRAST REASON FOR EXAM: Female, 62 years old. Amnesia TECHNIQUE: Standardized multiplanar fat and water weighted pulse sequences were obtained. 6 ml of Gadavist contrast material was administered intravenously for the contrast portion of the examination. COMPARISON: CT of the head dated 05/18/2018 FINDINGS: There is mild cerebral atrophy with widening of the extra- axial spaces and ventricular dilatation. Normal white matter tracts of the supratentorial brain. There is no evidence for recent intracranial ischemia or other cause of cytotoxic edema on diffusion weighted imaging (DWI). Normal bilateral basal ganglia. Normal thalami. There is no extra-axial fluid accumulation. Normal flow voids within the major intracranial circulation suggesting patency by spin echo criteria. Normal venous enhancement. There is no enhancing intra-axial or extra-axial abnormality. Normal sella turcica, pituitary gland, infundibular stalk, optic chiasm and hypothalamus. Normal tectal plate and pineal gland. Normal midbrain, garrick and medulla. Normal cerebellum. Normal basal cisterns. Normal bilateral temporal bones. Normal bilateral internal auditory canals. No demonstrated orbital abnormality, within the constraints of a routine brain study. Normal visualized paranasal sinuses. Normal calvarium and skull base. Normal visualized soft tissue structures. Normal visualized upper cervical spine. There is NO abnormal enhancement. MRI/Brain W/WO Contrast IMPRESSION: Normal unenhanced and enhanced MRI of the brain. Electronically Signed: Jason Olmedo MD at 5:34 EST , Service support , CC: Monika Robles DO Inspector Floor: Signed CAROTID DUPLEX Observed: 06/04/2018 Status: F Source: [place] ULTRASOUND 8:17 AM [facility] REPOSITORY [facility] Cardiovascular Services [address] [place] [address] [place] [address] Carotid Duplex Ultrasound 06/02/18 1304 MR#: [id number] Acct: [id number] Name: ADIN ALVARADO Rep #: [id number] : 1955 62 From: Ancelmo Julien MD Attending Dr: Monika Robles DO Status: REG CLI Ordering Dr: Monika Robles DO Date: 06/02/18 Location: [facility] Sex: F C Admitted: Reason For Study: Carotid Stenosis Rt. Velocities/BP Lt. Velocities/BP Prox CCA 77.4/18.2 cm/sec. Prox CCA 107/22 cm/sec. Mid CCA 90.3/28.1 cm/sec. Mid CCA 90.4/21.2 cm/sec. Dist CCA 86.2/18.2 cm/sec. Dist CCA 87.2/27.5 cm/sec. Prox ICA 97.2/29.5 cm/sec. Prox ICA 85/32.2 cm/sec. Mid ICA 97.4/40.9 cm/sec. Mid ICA 89.7/33.4 cm/sec. Dist ICA 116/42.4 cm/sec. Dist ICA 85/35.2 cm/sec. Rt. ICA/CCA = 1.32. Lt. ICA/CCA = 0.99. Prox ECA 122/18.7 cm/sec. Prox ECA 171/28.5 cm/sec. Rt. Vert. 41.6/15.7 cm/sec. Lt. Vert. 78.6/19.3 cm/sec. Right Extracranial There is no significant atherosclerotic plaque noted in the right common carotid artery. There is no significant atherosclerotic plaque noted in the right internal carotid artery. There is no significant atherosclerotic plaque noted in the right external carotid artery. Antegrade flow is noted in the right vertebral artery. There is heterogeneous, irregular atherosclerotic plaque noted in the right bulb. Left Extracranial There is intimal thickening but no significant atherosclerotic plaque noted in the left common carotid artery. There is intimal thickening but no significant atherosclerotic plaque noted in the left internal carotid artery. There is no significant atherosclerotic plaque noted in the left external carotid artery. Antegrade flow is noted in the left vertebral artery. There is heterogeneous, irregular atherosclerotic plaque noted in the left bulb. Procedure Carotid Duplex 13290. Exam performed in department. Interpretation Summary Mild (<50%) stenosis right extracranial internal carotid. Mild (<50%) stenosis left extracranial internal carotid. Flow within the vertebral arteries is antegrade bilaterally. Ordering Physician: Monika Robles Referring Physician: Monika Robles Performed By: Marietta Colby RVT and Student 06/04/18 0816 Date Ancelmo Julien MD CC: Monika Robles DO Date Dictated: 06/02/18 1304 Date Transcribed: 06/04/18 08 Inspector Floor: Signed CBC W/DIFF, AUTOMATED Collected: 06/02/2018 Status: F Source: CHIP 1:42 PM [facility] REPOSITORY TYPE CODE TESTS RESULT OUT OF RANGE REFERENCE UNITS LAB L100.1000 4.4-11.0 K/mm3 Normal WBC 4.5 LAB L100.1200 4.2-5.4 M/mm3 Low RBC 3.25 LAB L100.1300 12.0-15.0 g/dl Low HGB 10.6 LAB L100.1400 37-47 % Low HCT 33.9 LAB L100.1500 81-99 fL High MCV 104.3 LAB L100.1600 27.0-32.0 pg High MCH 32.6 LAB L100.1700 32-36 g/gl Low MCHC 31.3 LAB L100.1810 11.6-14.6 % Normal RDW CV 12.6 LAB L100.1820 35.1-43.9 fl High RDW SD 46.5 LAB L100.1900 150-450 K/mm3 Normal PLT 157 LAB L100.2000 6.2-12.0 fl Normal MPV 9.8 LAB L100.2100 47-70 % Normal NEUT% 50.8 LAB L100.2200 19-41 % Normal LY% 38.2 LAB L100.2300 0-10 % Normal MONO% 8.1 LAB L100.2400 0-5 % Normal EO% 2.0 LAB L100.2500 0-1 % Normal BASO% 0.7 LAB L100.2550 0.0-0.9 % Normal IM GRAN % 0.200 Result Comment: IG% - Immature Granulocytes (promyelocytes, myelocytes and metamyelocytes) > 1% indicates that a LEFT SHIFT is Present. LAB L100.2620 2.0-7.7 X10 3/uL Normal Absolute Neut 2.3 LAB L100.2720 0.83-4.51 X10 3/ul Normal Absolute Lymph 1.70 Performed By: #### L100.0100 #### [facility] [address] [place], [address] COMPREHENSIVE METABOLIC Collected: 06/02/2018 Status: F Source: [facility] 1:42 PM [facility] REPOSITORY TYPE CODE TESTS RESULT OUT OF RANGE REFERENCE UNITS LAB L501.0100 74-106 mg/dL Normal GLU 82 Result Comment: Please note revised GLUCOSE reference range effective 2017. LAB L501.1000 7-18 mg/dL High BUN 30 LAB L501.1100 0.55-1.02 mg/dL Normal CREAT,SERUM 0.88 Result Comment: The validity of the calculated GFR AND GFRAA in patients over 70 years has not been determined. Clinical correlation is essential. LAB L501.1110 >60 mL/min Normal EST GFR 69 Result Comment: Non- GFR Calc LAB L501.1115 >60 mL/min Normal EST GFR - AA 83 Result Comment: GFR Calc LAB L501.1300 10-20 RATIO High BUN/CRE 34.1 LAB L501.1500 6.4-8.2 g/dL Low T PROT 6.2 LAB L501.1800 3.2-5.0 g/dL Normal ALB 3.5 LAB L501.1950 2.2-4.2 g/dL Normal GLOB 2.7 LAB L501.2000 0.9-2.4 RATIO Normal A/G 1.3 LAB L501.2200 8.5-10.1 mg/dL Low CA 7.9 LAB L501.4100 15-37 U/L Low AST 14 LAB L501.4305 45-117 U/L Normal ALK P 71 LAB L501.4405 13-56 U/L Normal ALT 30 LAB L501.4600 0.20-1.00 mg/dL T Normal BILI 0.40 LAB L501.5300 136-145 mmol/L High NA 146 LAB L501.5600 3.5-5.1 mmol/L K Normal 3.8 LAB L501.5900 98-107 mmol/L High CL 112 LAB L501.6100 21.0-32.0 mmol/L Normal CO2 25.0 LAB L501.6200 5-15 Normal GAP 9 Performed By: #### L500.4050 #### [facility] [address] [facility] [place], [address] ELECTROENCEPHALOGRAM Observed: 05/27/2018 Status: F Source: [place] 11:18 AM [facility] REPOSITORY [facility] Pulmonary Services/Neurology [address] [place] [address] MR#: [id number] Acct: [id number] Name: ADIN ALVARADO Rep #: [id number] : 1955 62 From: Jose Raul Read MD Referring Dr: Monika Robles DO Status: REG CLI Ordering Dr: Date: Location: [facility] Sex: F C - Electroencephalogram This is an 18 channel EEG performed on this 62-year-old female with history of respiratory failure. There is a history of altered consciousness as well apparently prior to rest joo failure. 18 channel echoencephalogram was performed utilizing the International 10-20 electrode placement protocol as well as EKG reference leads, hyperventilation and photic stimulation. According to the it field technician's notes there is good compliance with hyperventilation which was performed for 2 minutes with no lateralizing Repliform changes in the post hyperventilatory phase is unremarkable. The patient remained awake throughout the recording. Background activity is 8-10 Hz medically in the posterior leads which attenuates with eye-opening. There are no lateralizing or epileptiform changes. EKG is normal sinus rhythm throughout the recording. Photic stimulation does generate a normal symmetric driving response in the posterior leads. At times there is beta range activity as well superimposed which is likely medication effect. Impression: Abnormal electroencephalogram due to the presence of beta range activity which is likely medication effect there are no epileptiform changes 05/27/18 1118 <Electronically signed by Jose Raul Read MD> Date Jose Raul Read MD CC: Monika Robles DO; Jose Raul Read MD Date Dictated: 05/27/181106 Date Transcribed: 05/27/181106 Inspector Floor: NF Signed CBC W/DIFF, AUTOMATED Collected: 05/26/2018 Status: F Source: CHIP 11:21 AM [facility] REPOSITORY TYPE CODE TESTS RESULT OUT OF RANGE REFERENCE UNITS LAB L100.1000 4.4-11.0 K/mm3 Normal WBC 5.0 LAB L100.1200 4.2-5.4 M/mm3 Low RBC 3.55 LAB L100.1300 12.0-15.0 g/dl Low HGB 11.3 LAB L100.1400 37-47 % Low HCT 36.7 LAB L100.1500 81-99 fL High MCV 103.4 LAB L100.1600 27.0-32.0 pg Normal MCH 31.8 LAB L100.1700 32-36 g/gl Low MCHC 30.8 LAB L100.1810 11.6-14.6 % Normal RDW CV 12.8 LAB L100.1820 35.1-43.9 fl High RDW SD 48.3 LAB L100.1900 150-450 K/mm3 Normal PLT 176 LAB L100.2000 6.2-12.0 fl Normal MPV 9.7 LAB L100.2100 47-70 % Low NEUT% 40.2 LAB L100.2200 19-41 % High LY% 50.2 LAB L100.2300 0-10 % Normal MONO% 6.8 LAB L100.2400 0-5 % Normal EO% 2.0 LAB L100.2500 0-1 % Normal BASO% 0.6 LAB L100.2550 0.0-0.9 % Normal IM GRAN % 0.200 Result Comment: IG% - Immature Granulocytes (promyelocytes, myelocytes and metamyelocytes) > 1% indicates that a LEFT SHIFT is Present. LAB L100.2620 2.0-7.7 X10 3/uL Normal Absolute Neut 2.0 LAB L100.2720 0.83-4.51 X10 3/ul Normal Absolute Lymph 2.52 Performed By: #### L100.0100 #### [facility] [address] [place], [address] VITAMIN B12 Collected: 05/26/2018 Status: F Source: [place] 11:21 AM [facility] REPOSITORY TYPE CODE TESTS RESULT OUT OF RANGE REFERENCE UNITS LAB L503.0105 211-911 pg/mL Normal Vitamin B12 224 Performed By: #### L503.0105 #### [facility] [address] [place], [address] COMPREHENSIVE METABOLIC Collected: 05/26/2018 Status: F Source: [facility] 11:21 AM [facility] REPOSITORY Order Comment: Is Patient Taking Vitamins or Folic Acid Supplements? N TYPE CODE TESTS RESULT OUT OF RANGE REFERENCE UNITS LAB L501.0100 74-106 mg/dL Low GLU 59 Result Comment: Please note revised GLUCOSE reference range effective 2017. LAB L501.1000 7-18 mg/dL High BUN 23 LAB L501.1100 0.55-1.02 mg/dL Normal CREAT,SERUM 0.88 Result Comment: The validity of the calculated GFR AND GFRAA in patients over 70 years has not been determined. Clinical correlation is essential. LAB L501.1110 >60 mL/min Normal EST GFR 68 Result Comment: Non- GFR Calc LAB L501.1115 >60 mL/min Normal EST GFR - AA 83 Result Comment: GFR Calc LAB L501.1300 10-20 RATIO High BUN/CRE 26.0 LAB L501.1500 6.4-8.2 g/dL T Normal PROT 6.4 LAB L501.1800 3.2-5.0 g/dL Normal ALB 3.7 LAB L501.1950 2.2-4.2 g/dL Normal GLOB 2.7 LAB L501.2000 0.9-2.4 RATIO Normal A/G 1.4 LAB L501.2200 8.5-10.1 mg/dL Low CA 8.0 LAB L501.4100 15-37 U/L Normal AST 31 LAB L501.4305 45-117 U/L Normal ALK P 78 LAB L501.4405 13-56 U/L Normal ALT 28 LAB L501.4600 0.20-1.00 mg/dL T Normal BILI 0.30 LAB L501.5300 136-145 mmol/L NA Normal 144 LAB L501.5600 3.5-5.1 mmol/L K Normal 4.1 LAB L501.5900 98-107 mmol/L High CL 111 LAB L501.6100 21.0-32.0 mmol/L Normal CO2 27.0 LAB L501.6200 5-15 Normal GAP 6 Performed By: #### L500.4050, L501.9520, L506.0250 #### [facility] [address] [place], [place], [address] THYROID STIM HORMONE Collected: 05/26/2018 Status: F Source: CHIP (TSH) 11:21 AM [facility] REPOSITORY Order Comment: Is Patient Taking Vitamins or Folic Acid Supplements? N TYPE CODE TESTS RESULT OUT OF RANGE REFERENCE UNITS LAB L501.9520 0.358-3.74 uIU/mL High TSH 34.90 Performed By: #### L500.4050, L501.9520, L506.0250 #### [facility] [address] [place], [place], [address] FOLATES, (FOLIC ACID) Collected: 05/26/2018 Status: F Source: CHIP 11:21 AM [facility] Order Comment: Is Patient Taking Vitamins or Folic Acid Supplements? N TYPE CODE TESTS RESULT OUT OF RANGE REFERENCE UNITS LAB L506.0250 3.1-55.4 ng/mL Normal FOLATES 47.30 Performed By: #### L500.4050, L501.9520, L506.0250 #### [facility] [address] [place], [address] SHOULDER MIN 2 VIEWS Observed: 05/22/2018 Status: F Source: CHIP 4:59 PM [facility] Imaging Services [address] [place] [address] Shoulder min 2 Views MR#: [id number] Acct: [id number] Name: ADIN ALVARADO Rep #: [id number] : 1955 F 62 From: Suzette Phillips MD PCP: Monika Robles DO Status: REG CLI Study: Shoulder min 2 Views Date of Exam: 05/22/18 Exam# [id number] Ordering Dr: Marilyn Blakely MD STUDY: X-RAY - RIGHT SHOULDER REASON FOR EXAM: Female, 62 years old. Chronic pain TECHNIQUE: Three view(s) of the RIGHT shoulder were obtained. COMPARISON: October 26, 2016 FINDINGS: The glenohumeral joint is within normal limits. There is degenerative arthrosis of the acromioclavicular joint without inferior osseous spur formation. No acute abnormalities are seen in the visualized clavicle. There are erosive changes in the greater tuberosity. There are subchondral cysts in the right humeral head. The soft tissues are unremarkable. The visualized lung and ribs are unremarkable. RAD/Shoulder min 2 Views IMPRESSION: There are erosive changes in the greater tuberosity and distal clavicle, likely degenerative. The findings have progressed compared to the prior study. Electronically Signed: Suzette Phillips MD at 17:08 EDT Tel Direct: [phone], Service support , CC: Marilyn Blakely MD; Monika Robles DO Inspector Floor: Signed SHOULDER MIN 2 VIEWS Observed: 05/22/2018 Status: F Source: [place] 4:59 PM [facility] REPOSITORY [facility] Imaging Services [address] [place] [address] Shoulder min 2 Views MR#: [id number] Acct: [id number] Name: YORDY ALVARADOALTHEA Guillaume Rep #: [id number] : 1955 F 62 From: Suzette Phillips MD PCP: Monika Robles DO Status: REG CLI Study: Shoulder min 2 Views Date of Exam: 05/22/18 Exam# [id number] Ordering Dr: Marilyn Blakely MD STUDY: X-RAY - LEFT SHOULDER REASON FOR EXAM: Female, 62 years old. Chronic pain TECHNIQUE: Three view(s) of the LEFT shoulder were obtained. COMPARISON: October 26, 2016 FINDINGS: There are mild degenerative changes in the glenohumeral joint. Again seen is a high riding humerus. There is minimal widening of the acromioclavicular joint. No acute abnormalities are seen in the visualized clavicle. There are erosive changes in the greater tuberosity. The soft tissues are unremarkable. There are old rib fractures on the left side. RAD/Shoulder min 2 Views IMPRESSION: There are erosive changes in the greater tuberosity, likely degenerative. There is minimal chronic AC joint separation. Electronically Signed: Suzette Phillips MD at 17:10 EDT Tel Direct: [phone], Service support , CC: Marilyn Blakely MD; Monika Robles DO Inspector Floor: Signed 12 LEAD ELECTROCARDIOGRAM Observed: 05/22/2018 Status: F Source: CHIP 10:16 AM [facility] REPOSITORY [facility] Cardiovascular Services [address] [place] [address] 12 Lead EKG 05/18/18 2253 MR#: [id number] Acct: [id number] Name: ADIN ALVARADO Rep #: [id number] : 1955 62 From: Abiodun Conde MD Attending Dr: Status: DEP ER Ordering Dr: Meg Turner MD Date: 05/18/18 Location: ED Sex: F C Admitted: Test Reason : CONFUSION Blood Pressure : / mmHG Vent. Rate : 065 BPM Atrial Rate : 065 BPM P-R Int : 206 ms QRS Dur : 088 ms QT Int : 402 ms P-R-T Axes : 054 000 016 degrees QTc Int : 418 ms Normal sinus rhythm Nonspecific T wave abnormality Confirmed by AMAYA GOMEZ, ABIODUN ([id number]), editor trade journal BRADLEY FOFANA ([id number]) on 05/22/2018 10:16:25 AM Referred By: YUE Confirmed By:ABIODUN CONDE MD 05/22/18 1016 Date Abiodun Conde MD CC: MEG TURNER MD; Monika Robles DO Signed ACUTE ABDOMEN INC Observed: 05/20/2018 Status: F Source: [place] CHEST 12:02 PM [facility] REPOSITORY [facility] Imaging Services [address] [place] [address] Acute Abdomen Inc Chest MR#: [id number] Acct: [id number] Name: ADIN ALVARADO Rep #: [id number] : 1955 F 62 From: Adalberto Harrell DO PCP: Monika Robles DO Status: REG CLI Study: Acute Abdomen Inc Chest Date of Exam: 05/20/18 Exam# [id number] Ordering Dr: Monika Robles DO STUDY: X-RAY - ACUTE ABDOMINAL SERIES REASON FOR EXAM: Female, 62 years old. Diarrhea. TECHNIQUE: Single view of the chest. Supine, and erect view(s) of the abdomen were obtained. COMPARISON: 12/16/2017 FINDINGS: The lungs are clear and expanded. Mildly elevated left hemidiaphragm Normal size heart. Normal mediastinum and jung. Normal visualized pulmonary arteries. Normal visualized aortic arch and descending thoracic aorta. There is an abundance of fecal material throughout the colon. The soft tissue structures of the abdomen and pelvis are unremarkable. IVC filter is noted. Spinal stimulator device. Numerous surgical clips in the midabdomen. There are diffuse degenerative changes of the visualized lumbar spine. RAD/Acute Abdomen Inc Chest IMPRESSION: No evidence of small bowel obstruction. Significant fecal retention throughout the colon. Lungs are clear. Electronically Signed: Adalberto Harrell DO at 11:58 EDT Tel , Service support , CC: Monika Robles DO Inspector Floor: Signed EMERGENCY DEPARTMENT Observed: 05/19/2018 Status: F Source: [place] SUMMARY 1:56 AM [facility] REPOSITORY [facility] Medical Records Department [address] [place] [address] Emergency Department Summary 05/18/18 2246 MR#: [id number] Acct: [id number] Name: ADIN ALVARADO Rep #: [id number] : 1955 62 From: Meg Turner MD PCP: Monika Robles DO Status: REG ER ADDENDUM by MEG TURNER MD on 05/19/18 at 0156 additional PE: no carotid bruits present. 05/19/18 0156 Date Meg Turner MD cc: Monika Robles DO * Signed History of Present Illness Chief Complaint: Alt LOC Informant: Patient, Family Onset: Days - 5-6 Context: Sudden Onset Timing: Intermittent - about 3 episodes, Lasts - unk Quality: confused Current Severity: gone Maximum Severity: Severe Narrative: Patient having episodes of feeling spaced out, confused/disoriented, not knowing where she is. She has no idea how long the episodes last. She does not think she is losing consciousness but does not know. Her has witnessed some of these, states that she does not lose consciousness but is confused and that makes her scared. She does not know where she is and that is the main indicator. He knows when she comes out of them but does not know when she has 1 start. They cannot even estimate how long these episodes of lasted. One occurred tonight while she was sitting on the toilet, the other one occurred while she was sitting as well. She has had diarrhea for months, it has been every second or third day on average, but when she has it it is fairly significant, more than 10 times a day. She denies any blood or melena. She denies any lightheadedness, vertiginous symptoms, ear discomfort, vision changes, or peripheral neurologic symptoms at all. She has no other symptoms that she can describe, she has no symptoms physically. Her called her PCP nato because of this episode and the patient being scared, and they were advised to go to the ER. She takes no anticoagulants or antiplatelets. She has no history of stroke or seizures. She does not smoke or drink alcohol. She does no other drugs. No recent medication changes. No recent head injury. No falls at all, and when she feels like this she does not think she feels like she is going to fall. She has had no issues walking. - Past Medical History (1) Chronic lower back pain Status: Chronic (2) Anxiety Status: Chronic (3) B12 deficiency Status: Chronic (4) Chronic pain disorder Status: Chronic (5) Depression Status: Chronic (6) Fibromyalgia Status: Chronic (7) Gastroesophageal reflux disease Status: Chronic (8) Inflammatory polyarthropathy Status: Chronic (9) Osteoporosis Status: Chronic (10) history of empyema Status: Chronic Past Medical History - Allergies and Home Meds Allergies/Adverse Reactions: Allergies doxycycline Allergy (Severe, Verified 05/18/18 21:04) Anaphylaxis THROAT CLOSES UP buprenorphine [From Butrans] Allergy (Mild, Verified 07/23/17 16:12) Unknown famciclovir [From Famvir] Allergy (Mild, Verified 07/23/17 16:12) unknown fentanyl [From Duragesic] Allergy (Mild, Verified 05/18/18 21:04) unkown pregabalin [From Lyrica] Allergy (Mild, Verified 10/24/14 14:09) Other CANT TALK tetracycline Allergy (Mild, Verified 05/18/18 21:04) unknown zonisamide [From Zonegran] Allergy (Mild, Verified 07/23/17 16:12) Unknown latex Allergy (Verified 05/18/18 21:04) Rash Penicillins [PCN] Allergy (Verified 05/18/18 21:04) Anaphylaxis ITCHING RASH AND THROAT CLOSES UP morphine Adverse Reaction (Intermediate, Verified 05/18/18 21:04) Other HALLUCINATES levofloxacin [From Levaquin] Adverse Reaction (Mild, Verified 01/07/15 10:21) Itching CAN TAKE ORAL, BUT CANNOT HAVE IV benzyl-peroxide Allergy (Mild, Uncoded 07/23/17 16:12) unknown mso4 Allergy (Mild, Uncoded 07/23/17 16:12) unknown Primary Care Physician: Monika Robles DO [Primary Care Provider] - Surgical History: appendectomy, cholecystectomy, total knee arthroplasty Lives: Spouse/ Significant Other Smoking Status: Never smoker Alcohol: None Drugs: None - Family History Paternal Family History: Family History (Last Reviewed 07/31/17 @ 11:15 by Desiree Dang) Mother Ovarian cancer Father Black lung Diabetes CAD (coronary artery disease) Lymphoma Sister Myocardial infarction Multiple sclerosis Family History: Reports: No pertinent history Maternal Family History: Family History (Last Reviewed 07/31/17 @ 11:15 by Desiree Dang) Mother Ovarian cancer Father Black lung Diabetes CAD (coronary artery disease) Lymphoma Sister Myocardial infarction Multiple sclerosis Family History: Reports: No pertinent history Review of Systems General: Reports: Weight loss - History of gastric bypass. Weight loss during. Of diarrhea which has been months.. Denies: Chills, Fever, Malaise, Sweats Eyes: Denies: Visual changes - bilaterally, Diplopia ENT: Denies: Bilateral ear pain, Rhinorrhea, Sore throat Cardiovascular: Denies: Chest pain, Palpitations, Heart racing Respiratory: Denies: Dyspnea, Cough, Sputum, Dyspnea on exertion Gastrointestinal: Reports: Diarrhea. Denies: Abdominal pain, Nausea, Vomiting, Melena, Hematochezia Genitourinary: Denies: Dysuria, Hematuria, Frequency Musculoskeletal: Reports: Myalgias - Chronic, Arthralgias - Chronic, Neck pain - Chronic, Back pain - Chronic, Swelling - BLE mild, chronic, Extremity Pain - Chronic Skin: Denies: Rash, Abscess Neurological: Denies: Headache, Weakness, Parasthesia, Numbness Psych: Denies: Suicidal thoughts, Suicidal ideations Endocrine: Denies: Polyuria, Polydipsia, Heat intolerance, Cold intolerance Hematologic: Denies: Easy bruising, Easy bleeding Allergy: Denies: Swelling of the mouth, Swelling of the tongue Physical Exam Vital Signs/Narrative: Vital Signs 05/18/18 20:59 96.7 F L 75 18 125/82 H 100 Inital Vital Signs reviewed: Yes General: Well nourished, Well developed Head: Normocephalic, Atraumatic Eyes: Perrl, EOMI. Negative for: Pale conjunctiva, Scleral icterus ENT: Moist mucous membranes, No rhinorrhea. Negative for: Sinus tenderness Neck: Supple, Nontender, No lymphadenopathy, No JVD Cardiovascular: Regular rate, Regular rhythm, No murmurs. Negative for: Tachycardia Respiratory: No distress, CTA bilaterally, Chest nontender Abdomen: Soft, Nontender, Nondistended, Normal bowel sounds Back: Nontender, Normal Inspection. Negative for: CVA tenderness Extremities: Nontender, No edema Skin: Normal color, No rash Neurological: Alert, Oriented x3, Cranial nerves II-XII grossly intact, Normal Strength, Normal Sensation, Normal DTR, Normal Gait Psychological: Normal affect Diagnostic/Tx/Re-eval Impressions Brain CT 05/18/18 22:44 IMPRESSION: Normal unenhanced CT scan of the brain. Electronically Signed: Natalie Rose MD at 23:39 EDT Tel , Service support , 05/18/18 22:44 Brain/Head without Contrast [CT] Stat Laboratory Results WBC 4.9 RBC 3.28 L - Rhythm Strip Rhythm Strip: Sinus Rhythm Rate: 65 Ectopy: None - EKG Initial EKG Interpretation: Sinus Rhythm, No Acute Injury Pattern, - - nml EKG Prior: Unchanged - Medical Decision Making Aside from slight anemia, she still has a hemoglobin between 10 and 11, and mild prerenal azotemia. The rest of her labs are unremarkable. CT head normal, urinalysis normal. EKG is normal. She remained asymptomatic here in the ED. I do not think she has to be admitted, but I do believe she will require further outpatient workup. Possibly referral to neurology. I think she should start with her PCP for now to manage this. I discussed all this with them and they are comfortable with this plan. She will be in the presence of her all of the time as well, so I do not think she will be unsafe. Encouraged to take a daily aspirin as long as she can tolerate it. Unknown if these are vascular events or not, she has no focal neurologic deficits to suggest a TIA. Subclinical seizures are in the differential diagnosis for unknown reasons, if present. Dysrhythmia is doubtful. Her diarrhea could be causing a little dehydration, her orthostatics were borderline positive and she states she felt a little lightheaded, but there is no dizziness in any form associated with her transient confusion. I think she can continue to hydrate orally and was encouraged to drink plenty of fluids. ED Disposition - Plan for ED Patient: Disposition: Home or Assisted Living Chief Complaint: Alt LOC Diagnosis: Diarrhea, Transient confusion Instructions: ED Altered Loc Referrals: Monika Robles DO [Primary Care Provider] - As soon as possible Additional Instructions: Take aspirin 325 mg once daily until seen by your doctor. What to do if you have Problems For any increased pain, shortness of breath, bleeding, nausea or vomiting, chest pain, or any unexpected problems, contact your Primary Care Provider. Call [facility] ([phone]) or report to the closest Emergency Room. Call 911 if necessary. 05/19/18 0156 <Electronically signed by Meg Turner MD> Date Meg Turner MD Cosigner Signature (If Indicated): Date CC: Monika Robles DO URINALYSIS, COMPLETE Collected: 05/19/2018 Status: F Source: CHIP 1:00 AM [facility] REPOSITORY Order Comment: How was Urine Obtained? GROUNDHAND TO SPECIFY TYPE CODE TESTS RESULT OUT OF RANGE REFERENCE UNITS LAB L400.3000 Yellow COLOR Normal Yellow LAB L400.3050 Clear Normal CLARITY Clear LAB L400.3200 Normal mg/dl Normal GLUCOSE, UR Normal LAB L400.3300 Negative mg/dL Normal BILIRUBIN URINE Negative LAB L400.3400 Negative mg/dl Normal KETONE UR Negative LAB L400.3465 1.002-1.030 Normal SP.GR. DIPSTX 1.020 LAB L400.3550 5.0 - 8.0 pH UR Normal 6.0 LAB L400.3600 Negative mg/dl PROT Normal DIPSTX Negative LAB L400.3700 Normal mg/dl Normal UROBILI Normal LAB L400.3750 Negative Normal NITRITE UR Negative LAB L400.3780 Negative /ul Normal OCCULT BLOOD-UR Negative LAB L400.3800 Negative /ul High LEUK 25 ESTERASE LAB L400.4050 0-5 /hpf WBC 0 Normal SEEN LAB L400.4100 0-5 /hpf 0 Normal RBC-UA SEEN LAB L400.4150 5-10 /hpf SQUAM 0 Normal EPI SEEN LAB L400.4300 None Seen /hpf 0 Normal BACTERIA SEEN LAB L400.4350 <or=2+ /hpf 0 Normal MUCUS, URINE SEEN Performed By: #### L400.0001 #### [facility] [address] [place], [address] CBC W/DIFF, AUTOMATED Collected: 05/18/2018 Status: F Source: [place] 11:09 PM [facility]POS[facility] TYPE CODE TESTS RESULT OUT OF RANGE REFERENCE UNITS LAB L100.1000 4.4-11.0 K/mm3 Normal WBC 4.9 LAB L100.1200 4.2-5.4 M/mm3 Low RBC 3.28 LAB L100.1300 12.0-15.0 g/dl Low HGB 10.9 LAB L100.1400 37-47 % Low HCT 34.5 LAB L100.1500 81-99 fL High MCV 105.2 LAB L100.1600 27.0-32.0 pg High MCH 33.2 LAB L100.1700 32-36 g/gl Low MCHC 31.6 LAB L100.1810 11.6-14.6 % Normal RDW CV 12.2 LAB L100.1820 35.1-43.9 fl High RDW SD 45.1 LAB L100.1900 150-450 K/mm3 Low PLT 147 LAB L100.2000 6.2-12.0 fl Normal MPV 9.6 LAB L100.2100 47-70 % Normal NEUT% 53.1 LAB L100.2200 19-41 % Normal LY% 38.0 LAB L100.2300 0-10 % Normal MONO% 6.5 LAB L100.2400 0-5 % Normal EO% 1.6 LAB L100.2500 0-1 % Normal BASO% 0.6 LAB L100.2550 0.0-0.9 % Normal IM GRAN % 0.200 Result Comment: IG% - Immature Granulocytes (promyelocytes, myelocytes and metamyelocytes) > 1% indicates that a LEFT SHIFT is Present. LAB L100.2620 2.0-7.7 X10 3/uL Normal Absolute Neut 2.6 LAB L100.2720 0.83-4.51 X10 3/ul Normal Absolute Lymph 1.86 Performed By: #### L100.0100 #### [facility] [address] [place], [address] BASIC METABOLIC Collected: 05/18/2018 Status: F Source: [place] PROFILE ([facility]) 11:09 PM [facility] REPOSIT[facility] TYPE CODE TESTS RESULT OUT OF RANGE REFERENCE UNITS LAB L501.0100 74-106 mg/dL Normal GLU 88 Result Comment: Please note revised GLUCOSE reference range effective 2017. LAB L501.1000 7-18 mg/dL High BUN 25 LAB L501.1100 0.55-1.02 mg/dL Normal CREAT,SERUM 0.88 Result Comment: The validity of the calculated GFR AND GFRAA in patients over 70 years has not been determined. Clinical correlation is essential. LAB L501.1110 >60 mL/min Normal EST GFR 69 Result Comment: Non- GFR Calc LAB L501.1115 >60 mL/min Normal EST GFR - AA 83 Result Comment: GFR Calc LAB L501.1255 ml/min Normal Estimated CRCL 54.04 LAB L501.1300 10-20 RATIO High BUN/CRE 28.4 LAB L501.2200 8.5-10 mg/dL Low .1 CA 7.8 LAB L501.5300 136-14 mmol/L Normal 5 NA 141 LAB L501.5600 3.5-5. mmol/L Normal 1 K 4.0 LAB L501.5900 98-107 mmol/L High CL 112 LAB L501.6100 21.0-3 mmol/L Normal 2.0 CO2 26.0 LAB L501.6200 5-15 Low GAP 3 Performed By: #### L500.2500, L501.4010 #### [facility] [address] [place], [address] TROPONIN-I Collected: 05/18/2018 Status: F Source: [place] 11:09 PM [facility] REPOSIT[facility] TYPE CODE TESTS RESULT OUT OF RANGE REFERENCE UNITS LAB L501.4010 <0.045 ng/mL Normal < 0.015 TROPONIN-I Result Comment: TROPONIN-I EXPECTED VALUES <0.045 Negative 0.045 - 0.590 Consistent with Cardiac Damage > OR = 0.600 Critical Value Not every elevated troponin is indicative of DC. These values should be used with clinical judgement in examining the patient's clinical picture for diagnosis. To establish a diagnosis of DC versus myocardial injury, there must be a demonstrated rise and/or fall in the troponin values, in addition to ischemic symptoms, EKG changes, new regional wall motion abnormality, and/or angiographical evidence. PLEASE NOTE: REFERENCE RANGES EDITED 17 Performed By: #### L500.2500, L501.4010 #### [facility] [address] [place], [address] BRAIN/HEAD WITHOUT Observed: 05/18/2018 Status: F Source: [place] CONTRAST 10:46 PM [facility] REPOSITORY [facility] Imaging Services [address] [place] [address] Brain/Head without Contrast MR#: [id number] Acct: [id number] Name: ADIN ALVARADO Markell Rep #: [id number] : 1955 F 62 From: Natalie Rose MD PCP: Monika Robles DO Status: REG ER Study: Brain/Head without Contrast Date of Exam: 05/18/18 Exam# [id number] Ordering Dr: Meg Turner MD STUDY: CT BRAIN WITHOUT CONTRAST REASON FOR EXAM: Female, 62 years old. Confusion. RADIATION DOSAGE (If Supplied By Facility): CTDIvol = ( 44.99 ) mGy, DLP = ( 863.60 ) mGycm TECHNIQUE: Transaxial CT imaging of the brain was performed without administration of intravenous contrast material. Individualized dose optimization techniques were used for this CT. COMPARISON: 03/30/2015. FINDINGS: Normal soft tissue structures. Normal calvarium. Normal size ventricles and extra-axial spaces for the patient's age. Normal white matter tracts of the cerebral hemispheres. Normal basal ganglia and thalami. Normal brainstem. Normal cerebellum. There is no intracranial hemorrhage. There are no findings of an acute ischemic infarction. Normal visualized paranasal sinuses. CT/Brain/Head without Contrast IMPRESSION: Normal unenhanced CT scan of the brain. Electronically Signed: Natalie Rose MD at 23:39 EDT Tel , Service support , CC: MEG TURNER MD; Monika Robles DO Inspector Floor: Signed COMPREHENSIVE METABOLIC Collected: 03/07/2018 Status: F Source: [facility] 4:18 PM [facility] TYPE CODE TESTS RESULT OUT OF RANGE REFERENCE UNITS LAB L501.0100 74-106 mg/dL Low GLU 53 Result Comment: Please note revised GLUCOSE reference range effective 2017. LAB L501.1000 7-18 mg/dL High BUN 23 LAB L501.1100 0.55-1.02 mg/dL Normal CREAT,SERUM 0.86 Result Comment: The validity of the calculated GFR AND GFRAA in patients over 70 years has not been determined. Clinical correlation is essential. LAB L501.1110 >60 mL/min Normal EST GFR 70 Result Comment: Non- GFR Calc LAB L501.1115 >60 mL/min Normal EST GFR - AA 85 Result Comment: GFR Calc LAB L501.1300 10-20 RATIO High BUN/CRE 26.7 LAB L501.1500 6.4-8.2 g/dL T Normal PROT 6.4 LAB L501.1800 3.2-5.0 g/dL Normal ALB 3.7 LAB L501.1950 2.2-4.2 g/dL Normal GLOB 2.7 LAB L501.2000 0.9-2.4 RATIO Normal A/G 1.4 LAB L501.2200 8.5-10.1 mg/dL Low CA 8.3 LAB L501.4100 15-37 U/L Normal AST 17 LAB L501.4305 45-117 U/L Normal ALK P 69 LAB L501.4405 13-56 U/L Normal ALT 20 LAB L501.4600 0.20-1.00 mg/dL T Normal BILI 0.40 LAB L501.5300 136-145 mmol/L High NA 148 LAB L501.5600 3.5-5.1 mmol/L K Normal 4.0 LAB L501.5900 98-107 mmol/L High CL 114 LAB L501.6100 21.0-32.0 mmol/L Normal CO2 27.0 LAB L501.6200 5-15 Normal GAP 7 Performed By: #### L500.4050 #### [facility] [address] [place], [address] CBC W/DIFF, AUTOMATED Collected: 03/07/2018 Status: F Source: [place] 4:18 PM [facility] TYPE CODE TESTS RESULT OUT OF RANGE REFERENCE UNITS LAB L100.1000 4.4-11.0 K/mm3 Normal WBC 4.4 LAB L100.1200 4.2-5.4 M/mm3 Low RBC 3.45 LAB L100.1300 12.0-15.0 g/dl Low HGB 10.9 LAB L100.1400 37-47 % Low HCT 35.0 LAB L100.1500 81-99 fL High MCV 101.4 LAB L100.1600 27.0-32.0 pg Normal MCH 31.6 LAB L100.1700 32-36 g/gl Low MCHC 31.1 LAB L100.1810 11.6-14.6 % High RDW CV 15.6 LAB L100.1820 35.1-43.9 fl High RDW SD 57.4 LAB L100.1900 150-450 K/mm3 Normal PLT 178 LAB L100.2000 6.2-12.0 fl Normal MPV 9.3 LAB L100.2100 47-70 % Low NEUT% 39.1 LAB L100.2200 19-41 % High LY% 50.5 LAB L100.2300 0-10 % Normal MONO% 7.7 LAB L100.2400 0-5 % Normal EO% 2.0 LAB L100.2500 0-1 % Normal BASO% 0.7 LAB L100.2550 0.0-0.9 % Normal IM GRAN % 0.000 Result Comment: IG% - Immature Granulocytes (promyelocytes, myelocytes and metamyelocytes) > 1% indicates that a LEFT SHIFT is Present. LAB L100.2620 2.0-7.7 X10 3/uL Low Absolute Neut 1.7 LAB L100.2720 0.83-4.51 X10 3/ul Normal Absolute Lymph 2.23 Performed By: #### L100.0100 #### [facility] [address] [place], [address] CBC W/DIFF, AUTOMATED Collected: 12/16/2017 Status: F Source: [place] 2:49 PM [facility] Order Comment: Order Date: 12/16/17 Order Info: 0184-1 - CBCD TYPE CODE TESTS RESULT OUT OF RANGE REFERENCE UNITS LAB L100.1000 4.4-11.0 K/mm3 Low WBC 3.8 LAB L100.1200 4.2-5.4 M/mm3 Low RBC 3.77 LAB L100.1300 12.0-15.0 g/dl Low HGB 11.5 LAB L100.1400 37-47 % Low HCT 36.3 LAB L100.1500 81-99 fL Normal MCV 96.3 LAB L100.1600 27.0-32.0 pg Normal MCH 30.5 LAB L100.1700 32-36 g/gl Low MCHC 31.7 LAB L100.1810 11.6-14.6 % Normal RDW CV 13.7 LAB L100.1820 35.1-43.9 fl High RDW SD 45.7 LAB L100.1900 150-450 K/mm3 Low PLT 146 LAB L100.2000 6.2-12.0 fl Normal MPV 10.1 LAB L100.2100 47-70 % Low NEUT% 34.5 LAB L100.2200 19-41 % High LY% 50.4 LAB L100.2300 0-10 % High MONO% 13.3 LAB L100.2400 0-5 % Normal EO% 1.3 LAB L100.2500 0-1 % Normal BASO% 0.5 LAB L100.2550 0.0-0.9 % Normal IM GRAN % 0.000 Result Comment: IG% - Immature Granulocytes (promyelocytes, myelocytes and metamyelocytes) > 1% indicates that a LEFT SHIFT is Present. LAB L100.2620 2.0-7.7 X10 3/uL Low Absolute Neut 1.3 LAB L100.2720 0.83-4.51 X10 3/ul Normal Absolute Lymph 1.89 Performed By: #### L100.0100, L500.4050, L501.9520 #### [facility] [address] [place], [address] COMPREHENSIVE METABOLIC Collected: 12/16/2017 Status: F Source: [facility] 2:49 PM [facility] Order Comment: Order Date: 12/16/17 Order Info: 0786-1 - CMP Order Info: 3016-3 - TSH TYPE CODE TESTS RESULT OUT OF RANGE REFERENCE UNITS LAB L501.0100 74-106 mg/dL Low GLU 68 Result Comment: Please note revised GLUCOSE reference range effective 2017. LAB L501.1000 7-18 mg/dL Normal BUN 13 LAB L501.1100 0.55-1.02 mg/dL Normal CREAT,SERUM 0.62 Result Comment: The validity of the calculated GFR AND GFRAA in patients over 70 years has not been determined. Clinical correlation is essential. LAB L501.1110 >60 mL/min Normal EST GFR 102 Result Comment: Non- GFR Calc LAB L501.1115 >60 mL/min Normal EST GFR - AA 124 Result Comment: GFR Calc LAB L501.1300 10-20 RATIO High BUN/CRE 20.8 LAB L501.1500 6.4-8.2 g/dL Low T PROT 5.9 LAB L501.1800 3.2-5.0 g/dL Normal ALB 3.3 LAB L501.1950 2.2-4.2 g/dL Normal GLOB 2.6 LAB L501.2000 0.9-2.4 RATIO Normal A/G 1.3 LAB L501.2200 8.5-10.1 mg/dL Low CA 7.5 LAB L501.4100 15-37 U/L High AST 77 LAB L501.4305 45-117 U/L High ALK P 175 LAB L501.4405 13-56 U/L High ALT 89 LAB L501.4600 0.20-1.00 mg/dL T Normal BILI 0.20 LAB L501.5300 136-145 mmol/L NA Normal 143 LAB L501.5600 3.5-5.1 mmol/L K Normal 4.2 LAB L501.5900 98-107 mmol/L High CL 113 LAB L501.6100 21.0-32.0 mmol/L Normal CO2 25.0 LAB L501.6200 5-15 Normal GAP 5 Performed By: #### L100.0100, L500.4050, L501.9520 #### [facility] [address] [place], [address] THYROID STIM HORMONE Collected: 12/16/2017 Status: F Source: CHIP (TSH) 2:49 PM [facility] Order Comment: Order Date: 12/16/17 Order Info: 0786-1 - CMP Order Info: 3016-3 - TSH TYPE CODE TESTS RESULT OUT OF RANGE REFERENCE UNITS LAB L501.9520 0.358-3.74 uIU/mL Low TSH 0.04 Performed By: #### L100.0100, L500.4050, L501.9520 #### [facility] [address] [place], [place], [address] CBC W/DIFF, AUTOMATED Collected: 12/16/2017 Status: F Source: [place]IP 2:49 PM [facility] Order Comment: Order Date: 12/16/17 Order Info: 0184-1 - CBCD TYPE CODE TESTS RESULT OUT OF RANGE REFERENCE UNITS LAB L100.1000 4.4-11.0 K/mm3 Low WBC 3.8 LAB L100.1200 4.2-5.4 M/mm3 Low RBC 3.77 LAB L100.1300 12.0-15.0 g/dl Low HGB 11.5 LAB L100.1400 37-47 % Low HCT 36.3 LAB L100.1500 81-99 fL Normal MCV 96.3 LAB L100.1600 27.0-32.0 pg Normal MCH 30.5 LAB L100.1700 32-36 g/gl Low MCHC 31.7 LAB L100.1810 11.6-14.6 % Normal RDW CV 13.7 LAB L100.1820 35.1-43.9 fl High RDW SD 45.7 LAB L100.1900 150-450 K/mm3 Low PLT 146 LAB L100.2000 6.2-12.0 fl Normal MPV 10.1 LAB L100.2100 47-70 % Low NEUT% 34.5 LAB L100.2200 19-41 % High LY% 50.4 LAB L100.2300 0-10 % High MONO% 13.3 LAB L100.2400 0-5 % Normal EO% 1.3 LAB L100.2500 0-1 % Normal BASO% 0.5 LAB L100.2550 0.0-0.9 % Normal IM GRAN % 0.000 Result Comment: IG% - Immature Granulocytes (promyelocytes, myelocytes and metamyelocytes) > 1% indicates that a LEFT SHIFT is Present. LAB L100.2620 2.0-7.7 X10 3/uL Low Absolute Neut 1.3 LAB L100.2720 0.83-4.51 X10 3/ul Normal Absolute Lymph 1.89 Performed By: #### L100.0100, L500.4050, L501.9520 #### [facility] [address] [place], [place], [address] COMPREHENSIVE METABOLIC Collected: 12/16/2017 Status: F Source: [place]IP [place] 2:49 PM [facility] Order Comment: PLEASE ADD AMYLASE, AND LIPASE 12/16/17 TUBE C241 Order Date: 12/16/17 Order Info: [id number] - CMP Order Info: 3016-3 - TSH TYPE CODE TESTS RESULT OUT OF RANGE REFERENCE UNITS LAB L501.0100 74-106 mg/dL Low GLU 68 Result Comment: Please note revised GLUCOSE reference range effective 2017. LAB L501.1000 7-18 mg/dL Normal BUN 13 LAB L501.1100 0.55-1.02 mg/dL Normal CREAT,SERUM 0.62 Result Comment: The validity of the calculated GFR AND GFRAA in patients over 70 years has not been determined. Clinical correlation is essential. LAB L501.1110 >60 mL/min Normal EST GFR 102 Result Comment: Non- GFR Calc LAB L501.1115 >60 mL/min Normal EST GFR - AA 124 Result Comment: GFR Calc LAB L501.1300 10-20 RATIO High BUN/CRE 20.8 LAB L501.1500 6.4-8.2 g/dL Low T PROT 5.9 LAB L501.1800 3.2-5.0 g/dL Normal ALB 3.3 LAB L501.1950 2.2-4.2 g/dL Normal GLOB 2.6 LAB L501.2000 0.9-2.4 RATIO Normal A/G 1.3 LAB L501.2200 8.5-10.1 mg/dL Low CA 7.5 LAB L501.4100 15-37 U/L High AST 77 LAB L501.4305 45-117 U/L High ALK P 175 LAB L501.4405 13-56 U/L High ALT 89 LAB L501.4600 0.20-1.00 mg/dL T Normal BILI 0.20 LAB L501.5300 136-145 mmol/L NA Normal 143 LAB L501.5600 3.5-5.1 mmol/L K Normal 4.2 LAB L501.5900 98-107 mmol/L High CL 113 LAB L501.6100 21.0-32.0 mmol/L Normal CO2 25.0 LAB L501.6200 5-15 Normal GAP 5 Performed By: #### L100.0100, L500.4050, L501.9520 #### [facility] [address] [place], [address] THYROID STIM HORMONE Collected: 12/16/2017 Status: F Source: CHIP (TSH) 2:49 PM [facility] Order Comment: PLEASE ADD AMYLASE, AND LIPASE 12/16/17 TUBE C241 Order Date: 12/16/17 Order Info: [id number] - CMP Order Info: 3016-3 - TSH TYPE CODE TESTS RESULT OUT OF RANGE REFERENCE UNITS LAB L501.9520 0.358-3.74 uIU/mL Low TSH 0.04 Performed By: #### L100.0100, L500.4050, L501.9520 #### [facility] [address] [place], [address] AMYLASE Collected: 12/16/2017 Status: F Source: [place] 2:49 PM [facility] Order Comment: PLEASE ADD AMYLASE, AND LIPASE 12/16/17 TUBE C241 Order Date: 12/16/17 Order Info: 0786-1 - CMP Order Info: 3016-3 - TSH TYPE CODE TESTS RESULT OUT OF RANGE REFERENCE UNITS LAB L501.2400 25-115 U/L Normal DESIREE 25 Performed By: #### L501.2400, L501.2450 #### [facility] [address] [place], [address] LIPASE Collected: 12/16/2017 Status: F Source: [place] 2:49 PM [facility] Order Comment: PLEASE ADD AMYLASE, AND LIPASE 12/16/17 TUBE C241 Order Date: 12/16/17 Order Info: 0786-1 - CMP Order Info: 3016-3 - TSH TYPE CODE TESTS RESULT OUT OF REFERENCE UNITS RANGE LAB L501.2450 73-393 U/L Low LIPASE 60 Performed By: #### L501.2400, L501.2450 #### [facility] [address] [facility] [place], [address] ABD INC DECUB Observed: 12/16/2017 Status: F Source: CHIP AND/OR ERECT 2:32 PM [facility]POS[facility] Imaging Services [address] [place] [address] Abd Inc Decub and/or Erect MR#: [id number] Acct: [id number] Name: ADIN ALVARADO aMrkell Rep #: [id number] : 1955 F 62 From: Sj Schaefer MD PCP: Monika Robles DO Status: REG CLI Study: Abd Inc Decub and/or Erect Date of Exam: 12/16/17 Exam# [id number] Ordering Dr: Monika Robles DO STUDY: X-RAY - ABDOMEN/PELVIS REASON FOR EXAM: Female, 62 years old. Diarrhea. Abdominal pain. Prior gastric bypass surgery. TECHNIQUE: AP supine and upright views of the abdomen and pelvis. COMPARISON: Comparison is made with prior examination dated February 21, 2016. FINDINGS: There is elevation of the left hemidiaphragm with the stable blunting of the left costophrenic angle. Gas is seen throughout the colon. Air-fluid levels are seen. Surgical clips are seen in the left mid abdomen most likely secondary to prior bowel surgery. There is no demonstrated free abdominal air. A filter is seen within the inferior vena cava. Surgical clips are seen in the epigastric region in keeping with prior gastric bypass surgery. A spinal cord stimulator is seen with the tip at the T10-T11 level. There are calcified phleboliths in the pelvis. Mild levoscoliosis. RAD/Abd Inc Decub and/or Erect IMPRESSION: Air fluid levels within the colon in keeping with a history of diarrhea. Radiographic follow-up is recommended. Electronically Signed: Sj Schaefer MD at 15:17 EDT Tel [phone], Service support , CC: Monika Robles DO Inspector Floor: Signed THYROID STIM HORMONE Collected: 12/10/2017 Status: F Source: [place] (T[facility]) 2:51 PM [facility] TYPE CODE TESTS RESULT OUT OF RANGE REFERENCE UNITS LAB L501.9520 0.358-3.74 uIU/mL Low TSH 0.02 Performed By: #### L501.9520 #### [facility] [address] [place], [address] CBC W/DIFF, AUTOMATED Collected: 12/10/2017 Status: F Source: [place] 2:50 PM [facility] TYPE CODE TESTS RESULT OUT OF RANGE REFERENCE UNITS LAB L100.1000 4.4-11.0 K/mm3 Normal WBC 4.9 LAB L100.1200 4.2-5.4 M/mm3 Low RBC 3.41 LAB L100.1300 12.0-15.0 g/dl Low HGB 10.4 LAB L100.1400 37-47 % Low HCT 33.6 LAB L100.1500 81-99 fL Normal MCV 98.5 LAB L100.1600 27.0-32.0 pg Normal MCH 30.5 LAB L100.1700 32-36 g/gl Low MCHC 31.0 LAB L100.1810 11.6-14.6 % Normal RDW CV 13.4 LAB L100.1820 35.1-43.9 fl High RDW SD 46.3 LAB L100.1900 150-450 K/mm3 Normal PLT 195 LAB L100.2000 6.2-12.0 fl Normal MPV 9.8 LAB L100.2100 47-70 % Low NEUT% 41.3 LAB L100.2200 19-41 % High LY% 43.9 LAB L100.2300 0-10 % High MONO% 11.0 LAB L100.2400 0-5 % Normal EO% 2.6 LAB L100.2500 0-1 % Normal BASO% 0.8 LAB L100.2550 0.0-0.9 % Normal IM GRAN % 0.400 Result Comment: IG% - Immature Granulocytes (promyelocytes, myelocytes and metamyelocytes) > 1% indicates that a LEFT SHIFT is Present. LAB L100.2620 2.0-7.7 X10 3/uL Normal Absolute Neut 2.0 LAB L100.2720 0.83-4.51 X10 3/ul Normal Absolute Lymph 2.16 Performed By: #### L100.0100 #### [facility] [address] [place], [address] COMPREHENSIVE METABOLIC Collected: 12/10/2017 Status: F Source: [facility] 2:50 PM [facility] TYPE CODE TESTS RESULT OUT OF RANGE REFERENCE UNITS LAB L501.0100 74-106 mg/dL Normal GLU 75 Result Comment: Please note revised GLUCOSE reference range effective 2017. LAB L501.1000 7-18 mg/dL High BUN 24 LAB L501.1100 0.55-1.02 mg/dL Normal CREAT,SERUM 0.68 Result Comment: The validity of the calculated GFR AND GFRAA in patients over 70 years has not been determined. Clinical correlation is essential. LAB L501.1110 >60 mL/min Normal EST GFR 93 Result Comment: Non- GFR Calc LAB L501.1115 >60 mL/min Normal EST GFR - AA 113 Result Comment: GFR Calc LAB L501.1300 10-20 RATIO High BUN/CRE 35.5 LAB L501.1500 6.4-8.2 g/dL Low T PROT 6.2 LAB L501.1800 3.2-5.0 g/dL Normal ALB 3.4 LAB L501.1950 2.2-4.2 g/dL Normal GLOB 2.8 LAB L501.2000 0.9-2.4 RATIO Normal A/G 1.2 LAB L501.2200 8.5-10.1 mg/dL CA Normal 8.5 LAB L501.4100 15-37 U/L Normal AST 18 LAB L501.4305 45-117 U/L Normal ALK P 73 LAB L501.4405 13-56 U/L Normal ALT 24 LAB L501.4600 0.20-1.00 mg/dL T Normal BILI 0.40 LAB L501.5300 136-145 mmol/L NA Normal 143 LAB L501.5600 3.5-5.1 mmol/L K Normal 3.7 LAB L501.5900 98-107 mmol/L High CL 110 LAB L501.6100 21.0-32.0 mmol/L Normal CO2 26.0 LAB L501.6200 5-15 Normal GAP 7 Performed By: #### L500.4050 #### [facility] [address] [facility] [place], [address] ABDOMEN/PELVIS WITH Observed: 10/28/2017 Status: F Source: [place] CONTRAST 4:41 PM [facility] Imaging Services [address] [place] [address] Abdomen/Pelvis WITH Contrast MR#: [id number] Acct: [id number] Name: ADIN ALVARADO Rep #: [id number] : 1955 F 62 From: Chan Ashley DO PCP: Monika Robles DO Status: REG CLI Study: Abdomen/Pelvis WITH Contrast Date of Exam: 10/28/17 Exam# [id number] Ordering Dr: Monika Robles DO STUDY: CT ABDOMEN AND PELVIS WITH CONTRAST REASON FOR EXAM: Female, 62 years old. Abdominal pain RADIATION DOSAGE (If Supplied By Facility): CTDIvol = ( 9.99 ) mGy, DLP = ( 487.81 ) mGycm TECHNIQUE: Transaxial images were obtained from the dome of the diaphragm to the symphysis pubis without oral contrast. 100CC ml of Isovue 300 contrast was administered. Sagittal and coronal images were reconstructed. Individualized dose optimization techniques were used for this CT. COMPARISON: January 31, 2016. FINDINGS: The visualized lung bases are unremarkable. The visualized portions of the heart are within normal limits. There is again noted a 5 x 1.5 cm collection lateral to the right hepatic lobe. Status post cholecystectomy. Dilatation of the biliary system. Normal spleen. Normal pancreas. Normal bilateral adrenal glands. Normal right kidney. 2.6 cm cyst in the left kidney. Prior surgery of the stomach. Mile ileus of the small intestine. Fecal retention of the colon. The appendix is not visualized. Calcified abdominal aorta. There is a filter in the inferior vena cava. Normal retroperitoneum. There is again noted a diverticulum of the urinary bladder extending into the left inguinal region. Normal abdominal wall. Vertebral scoliosis. A spinal stimulator is noted. CT/Abdomen/Pelvis WITH Contrast IMPRESSION: Stable fluid collection lateral to the right hepatic lobe. Status post cholecystectomy. Biliary dilatation. Left hepatic cyst. Mild small bowel ileus. Colonic fecal retention. Stable diverticulum of the urinary bladder. Electronically Signed: Chan Ashley DO at 22:50 EDT Tel [phone], Service support , CC: Monika Robles DO Inspector Floor: Signed THYROID STIM HORMONE Collected: 10/23/2017 Status: F Source: [facility]IP (TSH) 12:09 PM [facility] TYPE CODE TESTS RESULT OUT OF RANGE REFERENCE UNITS LAB L501.9520 0.358-3.74 uIU/mL Low TSH 0.17 Performed By: #### L501.9520 #### [facility] [place], [address] CBC W/DIFF, AUTOMATED Collected: 09/30/2017 Status: F Source: [place]IP 5:17 PM [facility] TYPE CODE TESTS RESULT OUT OF RANGE REFERENCE UNITS LAB L100.1000 4.4-11.0 K/mm3 Normal WBC 5.3 LAB L100.1200 4.2-5.4 M/mm3 Low RBC 3.70 LAB L100.1300 12.0-15.0 g/dl Low HGB 11.7 LAB L100.1400 37-47 % Normal HCT 37.2 LAB L100.1500 81-99 fL High MCV 100.5 LAB L100.1600 27.0-32.0 pg Normal MCH 31.6 LAB L100.1700 32-36 g/gl Low MCHC 31.5 LAB L100.1810 11.6-14.6 % Normal RDW CV 14.0 LAB L100.1820 35.1-43.9 fl High RDW SD 50.3 LAB L100.1900 150-450 K/mm3 Normal PLT 150 LAB L100.2000 6.2-12.0 fl Normal MPV 9.2 LAB L100.2100 47-70 % Low NEUT% 46.3 LAB L100.2200 19-41 % Normal LY% 39.0 LAB L100.2300 0-10 % Normal MONO% 9.1 LAB L100.2400 0-5 % Normal EO% 4.8 LAB L100.2500 0-1 % Normal BASO% 0.6 LAB L100.2550 0.0-0.9 % Normal IM GRAN % 0.200 Result Comment: IG% - Immature Granulocytes (promyelocytes, myelocytes and metamyelocytes) > 1% indicates that a LEFT SHIFT is Present. LAB L100.2620 2.0-7.7 X10 3/uL Normal Absolute Neut 2.4 LAB L100.2720 0.83-4.51 X10 3/ul Normal Absolute Lymph 2.05 Performed By: #### L100.0100 #### [facility] [address] [place], [place], [address] COMPREHENSIVE METABOLIC Collected: 09/30/2017 Status: F Source: CHIP H[place] 5:17 PM [facility] TYPE CODE TESTS RESULT OUT OF RANGE REFERENCE UNITS LAB L501.0100 74-106 mg/dL Normal GLU 81 Result Comment: Please note revised GLUCOSE reference range effective 2017. LAB L501.1000 7-18 mg/dL High BUN 22 LAB L501.1100 0.55-1.02 mg/dL High CREAT,SERUM 1.10 Result Comment: The validity of the calculated GFR AND GFRAA in patients over 70 years has not been determined. Clinical correlation is essential. LAB L501.1110 >60 mL/min Low EST GFR 53 Result Comment: Non- GFR Calc LAB L501.1115 >60 mL/min Normal EST GFR - AA 64 Result Comment: GFR Calc LAB L501.1300 10-20 RATIO Normal BUN/CRE 20.0 LAB L501.1500 6.4-8.2 g/dL T Normal PROT 6.7 LAB L501.1800 3.2-5.0 g/dL Normal ALB 3.4 LAB L501.1950 2.2-4.2 g/dL Normal GLOB 3.3 LAB L501.2000 0.9-2.4 RATIO Normal A/G 1.0 LAB L501.2200 8.5-10.1 mg/dL Low CA 8.1 LAB L501.4100 15-37 U/L Normal AST 33 LAB L501.4305 45-117 U/L Normal ALK P 78 LAB L501.4405 13-56 U/L Normal ALT 28 Result Comment: Please note revised ALT reference range effective 2017. LAB L501.4600 0.20-1.00 mg/dL Normal T BILI 0.30 LAB L501.5300 136-145 mmol/L Normal NA 138 LAB L501.5600 3.5-5.1 mmol/L Normal K 4.0 LAB L501.5900 98-107 mmol/L High CL 108 LAB L501.6100 21.0-32.0 mmol/L Normal CO2 23.0 LAB L501.6200 5-15 Normal GAP 7 Performed By: #### L500.4050, L501.3620, L501.9520 #### [facility] [address] [place], [address] CPK TOTAL, CREATINE Collected: 09/30/2017 Status: F Source: [place]IP [place] 5:17 PM [facility] TYPE CODE TESTS RESULT OUT OF RANGE REFERENCE UNITS LAB L501.3620 26-192 U/L Normal CPK TOTAL 50 Performed By: #### L500.4050, L501.3620, L501.9520 #### [facility] [address] [place], [address] THYROID STIM HORMONE Collected: 09/30/2017 Status: F Source: CHIP (TSH) 5:17 PM [facility] TYPE CODE TESTS RESULT OUT OF RANGE REFERENCE UNITS LAB L501.9520 0.358-3.74 uIU/mL High TSH 43.00 Performed By: #### L500.4050, L501.3620, L501.9520 #### [facility] [address] [place], [address] COMPREHENSIVE METABOLIC Collected: 09/17/2017 Status: F Source: CHIP PROFIL 2:28 PM [facility] TYPE CODE TESTS RESULT OUT OF RANGE REFERENCE UNITS LAB L501.0100 74-106 mg/dL Low GLU 62 Result Comment: Please note revised GLUCOSE reference range effective 2017. LAB L501.1000 7-18 mg/dL Normal BUN 16 LAB L501.1100 0.55-1.02 mg/dL Normal CREAT,SERUM 0.83 Result Comment: The validity of the calculated GFR AND GFRAA in patients over 70 years has not been determined. Clinical correlation is essential. LAB L501.1110 >60 mL/min Normal EST GFR 74 Result Comment: Non- GFR Calc LAB L501.1115 >60 mL/min Normal EST GFR - AA 89 Result Comment: GFR Calc LAB L501.1300 10-20 RATIO Normal BUN/CRE 19.3 LAB L501.1500 6.4-8.2 g/dL T Normal PROT 6.4 LAB L501.1800 3.2-5.0 g/dL Low ALB 3.1 LAB L501.1950 2.2-4.2 g/dL Normal GLOB 3.3 LAB L501.2000 0.9-2.4 RATIO Normal A/G 0.9 LAB L501.2200 8.5-10.1 mg/dL Low CA 7.7 LAB L501.4100 15-37 U/L Normal AST 21 LAB L501.4305 45-117 U/L Normal ALK P 78 LAB L501.4405 13-56 U/L Normal ALT 18 Result Comment: Please note revised ALT reference range effective 2017. LAB L501.4600 0.20-1.00 mg/dL Normal T BILI 0.30 LAB L501.5300 136-145 mmol/L Normal NA 139 LAB L501.5600 3.5-5.1 mmol/L Normal K 4.0 LAB L501.5900 98-107 mmol/L High CL 108 LAB L501.6100 21.0-32.0 mmol/L Normal CO2 25.0 LAB L501.6200 5-15 Normal GAP 6 Performed By: #### L500.4050 #### [facility] [address] [place] [address]. [place], [place], [address] CBC W/DIFF, AUTOMATED Collected: 09/17/2017 Status: F Source: [place] 2:28 PM [facility] TYPE CODE TESTS RESULT OUT OF RANGE REFERENCE UNITS LAB L100.1000 4.4-11.0 K/mm3 Normal WBC 4.5 LAB L100.1200 4.2-5.4 M/mm3 Low RBC 3.55 LAB L100.1300 12.0-15.0 g/dl Low HGB 10.9 LAB L100.1400 37-47 % Low HCT 36.0 LAB L100.1500 81-99 fL High MCV 101.4 LAB L100.1600 27.0-32.0 pg Normal MCH 30.7 LAB L100.1700 32-36 g/gl Low MCHC 30.3 LAB L100.1810 11.6-14.6 % High RDW CV 15.0 LAB L100.1820 35.1-43.9 fl High RDW SD 54.8 LAB L100.1900 150-450 K/mm3 Normal PLT 200 LAB L100.2000 6.2-12.0 fl Normal MPV 9.5 LAB L100.2100 47-70 % Low NEUT% 45.0 LAB L100.2200 19-41 % Normal LY% 36.5 LAB L100.2300 0-10 % High MONO% 11.9 LAB L100.2400 0-5 % Normal EO% 4.9 LAB L100.2500 0-1 % High BASO% 1.3 LAB L100.2550 0.0-0.9 % Normal IM GRAN % 0.400 Result Comment: IG% - Immature Granulocytes (promyelocytes, myelocytes and metamyelocytes) > 1% indicates that a LEFT SHIFT is Present. LAB L100.2620 2.0-7.7 X10 3/uL Normal Absolute Neut 2.0 LAB L100.2720 0.83-4.51 X10 3/ul Normal Absolute Lymph 1.63 Performed By: #### L100.0100 #### [facility] [address] [facility] [place], [address] URINE DRUG SCREEN Collected: 09/04/2017 Status: F Source: [place] ([facility]) 1:16 PM [facility] Order Comment: List of Drugs Taken or Suspected? UNK TYPE CODE TESTS RESULT OUT OF RANGE REFERENCE UNITS LAB L505.0075 TO BE Normal CONFIRMED Result Comment: CONFIRMATORY TESTING FOR ALL POSITIVE URINE DRUG SCREEN RESULTS WILL ONLY BE SENT OUT UPON PHYSICIAN ORDER. VISTA Urine Drug Screen methods provide only preliminary analytical test results. A more specific alternate chemical method must be used in order to obtain a confirmed analytical result. Gas chromatography/mass spectrometery (GC/MS) is the preferred confirmatory method. Clinical consideration and professional judgement should be applied to any drug of abuse test result, particularly when preliminary positive results are used. URINE TCA TESTING MUST BE ORDERED SEPARATELY. USE TEST MNEMONIC: [facility] LAB L505.5005 VISTA UDS PH 6 Normal LAB L505.5015 <1000 ng/mL AMPHETAMINES Normal NEGATIVE LAB L505.5025 < 200 ng/mL BARBITIURATES Normal NEGATIVE LAB L505.5035 < 200 ng/mL BENZODIAZIPINE Normal NEGATIVE LAB L505.5045 < 300 ng/mL COCAINE Normal NEGATIVE LAB L505.5055 < 500 ng/mL ECSTACY Normal NEGATIVE LAB L505.5065 < 300 ng/mL METHADONE Normal NEGATIVE LAB L505.5075 < 300 High ng/mL OPIATES POSITIVE LAB L505.5085 < 25 ng/mL PCP Normal NEGATIVE LAB L505.5095 < 50 ng/mL THC Normal NEGATIVE Performed By: #### L505.5000 #### [facility] [place], [address] MISCELLANEOUS LAB Collected: 09/04/2017 Status: F Source: CHIP PROCEDURE 1:16 PM [facility] REPOSITORY Order Comment: Test(s) Ordered: [id number] RUN LOWEST TEST TYPE CODE TESTS RESULT OUT OF RANGE REFERENCE UNITS LAB L801.1541 Normal [facility] Result Comment: [id number] 6+Oxycodone-Bund TESTS RESULT FLAG UNITS REFERENCE INTERVAL LAB Amphetamines, Urine Negative ng/mL Yhqqeo=[id number] Amphetamine test includes Amphetamine and Methamphetamine. Barbiturate Negative ng/mL Eczhmz=034 Benzodiazepines Negative ng/mL Dawhao=050 Cannabinoids Negative ng/mL Cutoff=20 Cocaine (Metabolite) Negative ng/mL Jfaypq=066 Opiates Positive ng/mL Jtdxpi=776 Opiate test includes Codeine, Morphine, Hydromorphone, Hydrocodone. Please Note: Confirmation performed by Mass Spectrometry Codeine Negative Rwqaca=315 Morphine Negative Lwuhev=799 Hydromorphone Positive Hydromorphone Confirm 1390 ng/mL Xlhzvd=775 Hydrocodone Negative Wepfpz=593 Oxycodone/Oxymorphone, Urine Negative ng/mL Jneyib=183 Test includes Oxycodone and Oxymorphone TESTING PERFORMED AT [facility]. ORIGINAL REPORT ON FILE IN LAB CONTAINS ADDITIONAL TEST SITE INFORMATION. Performed By: #### L801.1541 #### [facility] [address] [place], [address] ALLERGIES ALLERGIES DATE TYPE / CODE NAME / REACTION SEVERITY SOURCE CODE 05/18/2018 Drug Penicillin Anaphylaxis Unknown Harvey Allergy/[id number](S s/I7035255 Community NOM[facility]) 76([facility]) Hospital Repository 05/18/2018 Drug morphine/F Other [place] Hcip Allergy/041284464(S 365977300( Community NOMED CT) [facility]) Hospital Repository 05/18/2018 Drug tetracycli Unknown DC Chip Allergy/744936854(S ne/T069731 Community NOMED CT) 738([facility] ) Repository 05/18/2018 Drug doxycyclin Anaphylaxis SV Harvey Allergy/280536377(S e/K0681942 Community NOMED CT) 48([facility]) Hospital Repository 05/18/2018 Drug fentanyl/F UNKOWN DC Harvey Allergy/161918940(S 352180721( Community NOMED CT) [facility]) Hospital Repository 05/18/2018 Drug latex/F006 Rash Unknown Harvey Allergy/661174303(S 256619(RXN Community NOMED [facility]) [place]) Hospital Repository 07/23/2017 Drug famciclovi Unknown DC Chip Allergy/618530542(S r/E3731880 Community NOM[facility] CT) 70([facility]) Hospital Repository 07/23/2017 Drug buprenorph Unknown DC Harvey Allergy/952494760(S ine/Y99515 Community NOM[facility]) 4632([facility]) Repository 07/23/2017 Drug zonisamide Unknown DC Harvey Allergy/640179968(S /K53018434 Community NOMED CT) 7([facility]) Hospital Repository 07/23/2017 Miscellaneous benzyl-per Unknown DC Harvey Allergy/550212104(S oxide Community NOMED CT) Hospital Repository 07/23/2017 Miscellaneous mso4 Unknown DC Harvey Allergy/147679833(S Community NOM[facility]) Hospital Repository 01/07/2015 Drug levofloxac Itching DC Chip Allergy/851111360(S in/W574272 Community NOMED CT) 299([facility] ) Repository 2014 Drug pregabalin Other DC Chip Allergy/184113007(S /E70115041 [facility] NOMED CT) 3([facility]) Hospital Repository ENCOUNTERS ENCOUNTERS ADMIT/DISCHARGE ACCOUNT ADMITTING ENCOUNTER LOCATION SOURCE NUMBER CLASS 08/15/2018 [id number] Ambulatory Harvey Chip 2 [facility] Hospital ing:OPBI Repository 08/11/2018 [id number] Ambulatory Harvey Chip 9 [facility] Hospital ing:LAB Repository 07/21/2018 [id number] Ambulatory Building:[facility] OHIP Practices Repository 07/16/2018 [id number] Ambulatory Harvey Chip 7 [facility] Hospital ing:RAD Repository 06/10/2018 [id number] Ambulatory Harvey Harvey 3 [facility] Hospital ing:MRI Repository 06/02/2018 [id number] Ambulatory Chip Chip 9 [facility] ing:CVS Repository 05/26/2018 [id number] Ambulatory Harvey Chip 1 [facility] Hospital ing:PSN Repository 05/22/2018 [id number] Ambulatory Harvey Chip 8 [facility] Hospital ing:RAD Repository 05/20/2018 [id number] Ambulatory Harvey Chip 1 [facility] Hospital ing:HPRAD Repository 05/18/2018/ [id number] Emergency Chip Harvey 8 8 [facility] Hospital ing:ED Repository 03/07/2018 [id number] Ambulatory Harvey Harvey 2 [facility] Hospital ing:MTLAB Repository 12/16/2017 [id number] Ambulatory Chip Harvey 4 [facility] ing:LABSPEC Repository 12/16/2017 [id number] Ambulatory Chip Harvey 6 [facility] Hospital ing:HPRAD Repository 12/10/2017 [id number] Ambulatory Harvey Chip 1 [facility] Hospital ing:LAB.FUTUR Repository E 10/28/2017 [id number] Ambulatory Harvey Chip 8 [facility] Hospital ing:CT Repository 10/23/2017 [id number] Ambulatory Chip Chip 2 [facility] Hospital ing:MTLAB Repository 09/30/2017 [id number] Ambulatory Chip Chip 0 [facility] ing:LAB Repository 09/17/2017 [id number] Ambulatory Chip Harvey 7 [facility] ing:MTLAB Repository 09/04/2017 [id number] Ambulatory Harvey Harvey 0 [facility] ing:LAB Repository PAYERS PAYERS ENCOUNTER GUARANTOR PAYER SUBSCRIBER SOURCE 08/15/2018 ADIN Guillaume Primary ADIN Saunders [id number] Insurance:[employer] [place]OB: [place] icy Number: [id number] Hospital 86403Utg: 330) [id number] Repository [phone] () e Date:1141-16-26IS [address] [place] [address]QC: 08/15/2018 Secondary NOT GIVENUNK Chip Insurance:SELF PAY [facility] Number: Effective Repository Date:2018-05-20 08/11/2018 ADIN Guillaume Primary ADIN Guillaume Harvey [id number] Insurance:[employer]ULTCAREPol [place]LEYDOB: [place] icy Number: [id number] Hospital [address]Lpl: 330 [id number] Repository [phone] () e Date:7290-21-45UP [address] [place] [address]FM: 08/11/2018 Secondary NOT GIVENUNK Harvey Insurance:SELF PAY [facility] Number: Effective Repository Date:2018-08-08 07/21/2018 ADIN Guillaume Primary ADIN Guillaume OHIP Practices RILEYDOB: Insurance:[employer] RILEYDOB: Repository [id number] W icy Number: [id number] [facility] [id number] W [facility] [address]Ntd: e Date:8266-18-21[place], [place] Name:[facility] [address] [address]Utk: [phone]) (HP)Tel: [phone] [address], [place] [phone] (HP) [phone] () [id number]: 07/21/2018 Secondary Bruce RileyDOB: OHIP Practices Insurance:Medical [id number] Repository [place] [address] Number: SAM Mathias [id number]: (330) Date: [id number] (HP) 9854-18-98Fffk Name:[facility] [address], [place] [id number]: 07/21/2018 Tertiary Bruce RileyDOB: [place]IP Practices Insurance:Medical [id number] Repository [place] [address] [address] [facility] Number: SAM Mathias [id number]: (330) Date:2009-08-051376 (HP) 0527-55-64Nwrt Name:[facility] [address], [place] [id number]: 07/16/2018 ADIN Guillaume Primary ADIN Saunders [id number] Insurance:[employer]AREPol [place]LEYDOB: [place] icy Number: [id number] Hospital [address]Huw: (330) [id number] Repository [phone] () e Date:1849-93-77HG [facility] [address] [place] [address]JW: 07/16/2018 Secondary NOT GIVENUNK Chip Insurance:SELF PAY [facility] Number: Effective Repository Date:2018-07-16 06/10/2018 ADIN L Primary ADIN L Chip [id number] Insurance:[employer]Pol RILEYDOB: [place] icy Number: [id number] Hospital [address]Pif: (330) [id number] Repository [phone] () e Date:7844-37-42IY [address] [place] [address]CY: 06/10/2018 Secondary NOT GIVENUNK Harvey Insurance:SELF PAY [facility] Number: Effective Repository Date:2018-05-20 06/02/2018 ADIN L Primary ADIN [id number] Insurance:[employer] [place]LEYDOB: [place] icy Number: [id number] Hospital [address]Moi: (330) [id number] Repository [phone] () e Date:5363-87-15KI [address] [place] [address]GV: 06/02/2018 Secondary NOT GIVENUNK Harvey Insurance:SELF PAY [facility] Number: Effective Repository Date:2018-05-20 05/26/2018 ADIN Guillaume Primary ADIN [id number] Insurance:[employer] [place]LEYDOB: [place] Number: [id number] Hospital [address]Apd: (330) [id number] Repository [phone] () e Date:6682-23-91TJ [address] [address]FH: 05/26/2018 Secondary NOT GIVENUNK Chip Insurance:SELF PAY [facility] Number: Effective Repository Date:2018-05-20 05/22/2018 ADIN Guillaume Primary ADIN [id number] Insurance:[employer] [place]LEYDOB: [place] Number: [id number] Hospital [address]Bpc: (330) [id number] Repository [phone] () e Date:1577-37-55JG [facility] [address] [place] [address]OO: 05/22/2018 Secondary NOT GIVENUNK Harvey Insurance:SELF PAY [facility] Number: Effective Repository Date:2018-05-22 05/20/2018 ADIN Guillaume Primary ADIN [id number] Insurance:[employer] [place]LEYDOB: [place] icy Number: [id number] Hospital [address]Grb: (330) [id number] Repository [phone] () e Date:4696-89-75EU [facility] [address] [place] [address]UG: 05/20/2018 Secondary NOT GIVENUNK Harvey Insurance:SELF PAY [facility] Number: Effective Repository Date:2018-05-20 05/18/2018 ADIN Guillaume Primary ADIN Saunders [id number] Insurance:[employer] [place]LEYDOB: [place] Number: [id number] Hospital [address]Ofj: (178) [id number] Repository [phone] () e Date:3280-30-42ZH [facility] [address] [place] [address]FV: 05/18/2018 Secondary NOT GIVENUNK Chip Insurance:SELF PAY [facility] Number: Effective Repository Date:2018-05-18 03/07/2018 ADIN Saunders [id number] Insurance:[employer] [place]LEYDOB: [place] Number: [id number] Hospital [address]Jqj: 330 [id number] Repository [phone] () e Date:4003-50-73YI [address] [place] [address]CQ: 03/07/2018 Secondary NOT GIVENUNK Harvey Insurance:SELF PAY [facility] Number: Effective Repository Date:2018-03-07 12/16/2017 ADIN Saunders [id number] Insurance:[employer]AREPol RileyDOB: [place] Number: [id number] Hospital [address]Elx: (159) [id number] Repository [phone] () Date:9412-38-55XH [facility] [address] [place] [address]AO: 12/16/2017 Secondary NOT GIVENUNK Chip Insurance:SELF PAY [facility] Number: Effective Repository Date:2017-12-16 12/16/2017 ADIN Saunders [id number] Insurance:[employer]AREPol RileyDOB: [place] Number: [id number] Hospital 85[address]Oyx: (674) [id number] Repository [phone] () Date:5311-26-83JX [facility] [address] [place] [address]GG: 12/16/2017 Secondary NOT GIVENUNK Chip Insurance:SELF PAY [facility] Number: Effective Repository Date:2017-12-16 12/10/2017 AD[id number] Insurance:[employer]AREPol RileyDOB: [place] Number: [id number] Hospital [address]Cux: (066) [id number] Repository [phone] () Date:7038-10-35CH [address] [address]DG: 12/10/2017 Secondary NOT GIVENUNK Chip Insurance:SELF PAY [facility] Number: Effective Repository Date:2017-10-23 10/28/2017 ADIN Fowler Harvey [id number] Insurance:[employer]ULTCAREPol RileyDOB: [place] Number: [id number] Hospital [address]Egh: (670) [id number] Repository [phone] () Date:1528-49-84LH [facility] [address] [place] [address]ZN: 10/28/2017 Secondary NOT GIVENUNK Harvey Insurance:SELF PAY [facility] Number: Effective Repository Date:2017-10-23 10/23/2017 ADIN Saunders [id number] Insurance:[employer]AREPol RileyDOB: [place] Number: [id number] Hospital 226[address]Lwe: (364) [id number] Repository [phone] () Date:8776-39-51CX [facility] [address] [place] [address]KV: 10/23/2017 Secondary NOT GIVENUNK Chip Insurance:SELF PAY [facility] Number: Effective Repository Date:2017-10-23 09/30/2017 ADIN Guillaume Primary Bruce Saunders [id number] Insurance:[employer]AREPol RileyDOB: [place] Number: [id number] Hospital 74[address]Qha: 330 [id number] Repository [phone] () Date:7688-61-12RQ [address] [place] [address]QT: 09/30/2017 Secondary NOT GIVENUNK Chip Insurance:SELF PAY [facility] Number: Effective Repository Date:2017-09-30 09/17/2017 ADIN Fowler Harvey [id number] Insurance:[employer]AREPol RileyDOB: [place] Number: [id number] Hospital 439[address]Pkr: 330 [id number] Repository [phone] () Date:1565-52-88YU [address] [place] [address]RR: 09/17/2017 Secondary NOT GIVENUNK Harvey Insurance:SELF PAY [facility] Number: Effective Repository Date:2017-09-17 09/04/2017 ADIN Saunders [id number] Insurance:[employer]AREPol RileyDOB: [place] Number: [id number] Hospital 226[address]Ljv: 330 [id number] Repository [phone] () Date:5812-29-48CP [facility] [address] [place] [address]ZX: 09/04/2017 Secondary NOT GIVENUNK Harvey Insurance:SELF PAY [facility] Number: Effective Repository Date:2017-09-04
== END ==
PROVIDERS: Family Provider Internal Medicine; PCP Internal Medicine; Referring Provider Anesthesiology Pain Medicine; Visit Provider Anesthesiology Pain Medicine
DX: M54.9 Dorsalgia, unspecified (principal)
CPT/HCPCS: 72072

== ENCOUNTER → 2018-08-11 06:55 | Outpatient (CLI) | payer OTHER, SELFPAY ==
[2018-08-11 07:55] LABS: Glucose GTT- Fasting 87 mg/dL (74-106)
[2018-08-11 08:14] LABS: Glucose GTT-30 minutes 215 mg/dL (110-170)
[2018-08-11 09:23] LABS: Glucose GTT- 1 Hour 95 mg/dL (120-170)
[2018-08-11 10:31] LABS: Glucose GTT- 2 Hour 80 mg/dL (70-120)
[2018-08-11 11:25] LABS: Glucose GTT- 3 Hour 72 mg/dL (74-106)
[2018-08-11 11:52] LABS: Glucose GTT- 4 Hour 81 mg/dL (74-106)
== END ==
PROVIDERS: Family Provider Internal Medicine; PCP Internal Medicine; Referring Provider Psychiatry & Neurology Neurology; Visit Provider Psychiatry & Neurology Neurology
DX: E16.2 Hypoglycemia, unspecified (principal); R40.4 Transient alteration of awareness
CPT/HCPCS: 36415; 82951; 82952

== ENCOUNTER → 2018-08-15 15:00 | Outpatient (CLI) | payer OTHER, SELFPAY ==
--- NOTE | 2018-08-15 15:02 | BI_ITS ---
MAMMOGRAPHY - BILATERAL SCREENING REASON FOR EXAM: Female, 62 years old. Routine annual screening examination. PERTINENT HISTORY: Sisters with breast cancer. Aunt with breast cancer. Bilateral breast implants. TECHNIQUE: Digital bilateral breast janna (3D mammographic acquisition) in the CC and MLO projections. 2-D mediolateral oblique (MLO) and craniocaudad (CC) views of both breasts were obtained. CAD: Full Field Digital Mammography with Computer Added Detection was performed. COMPARISON: Comparison is made with prior study dated April 24, 2017 and April 23, 2016. FINDINGS: Breast Composition: The breasts are heterogeneously dense, which may obscure small masses. There are no dominant masses or suspicious calcifications. Stable appearance of the bilateral breast implants. No other significant abnormalities are identified. There has been no significant change since the prior study. BI/SCREENING MAMM (CAD), BILAT IMPRESSION: Stable bilateral screening mammogram. Yearly follow-up mammogram recommended. (A) ASSESSMENT CATEGORY: BIRADS Category 2: Benign. A letter regarding these results will be sent to the patient by the facility within 30 days. Approximately 10% of breast cancers are not detected by mammography. A normal mammogram should not delay biopsy of a clinically suspicious abnormality. [id number] Electronically Signed: Sj Schaefer MD at 8:34 EST Tel [phone], Service support ,
== END ==
PROVIDERS: Family Provider Internal Medicine; PCP Internal Medicine; Referring Provider Internal Medicine; Visit Provider Internal Medicine
DX: Z12.31 Encounter for screening mammogram for malignant neoplasm of breast (principal)
CPT/HCPCS: 77063; 77067

== ENCOUNTER → 2018-09-10 14:39 | Outpatient (CLI) | payer OTHER, SELFPAY ==
--- NOTE | 2018-09-10 14:44 | RAD_ITS ---
HISTORY: FALL. PAIN OVER COCCYX COMPARISON: Lumbar spine 10/24/2016 FINDINGS: XR Sacrum/Coccyx : 3 views Generalized bony demineralization and bony detail is partly limited in this regard. Partial obscuration of the sacrum from overlying bowel. No significant change compared to previous. No fracture or acute osseous abnormality seen. The SI joints are not widened.. Partial obscuration of the right ilium from overlying pain pump. Multiple pelvic phleboliths. RAD/Sacrum-Coccyx min 2 Views IMPRESSION: 1. Osteopenia. No fracture seen. 2. If symptoms persist, further correlation could be obtained with CT or bone scan. at 0738 Reported and signed by: Severino Edge MD Electronically Signed: Severino Edge, at 7:37 EST Tel , Service support ,
== END ==
PROVIDERS: Family Provider Internal Medicine; PCP Internal Medicine; Referring Provider Internal Medicine; Visit Provider Internal Medicine
DX: M53.3 Sacrococcygeal disorders, not elsewhere classified (principal)
CPT/HCPCS: 72220

== ENCOUNTER → 2019-02-25 09:51 | Outpatient (CLI) | payer MEDICARE, SELFPAY ==
--- NOTE | 2019-02-25 10:00 | BD_ITS ---
STUDY: DUAL ENERGY X-RAY ABSORPTIOMETRY / DXA REASON FOR EXAM: Female, 63 years old. The patient is postmenopausal. Gastric bypass surgery. TECHNIQUE: Bone Mineral Density (BMD) measurements of lumbar spine and bilateral hips were obtained. COMPARISON: Comparison is made with prior study dated November 10, 2015. FINDINGS: Lumbar Spine (L1-L4): g/cm2 (0.902) / T-score (-2.2) / Z-score (-0.6) Findings are suggestive of osteopenia with a high fracture risk. Left Femur Total: g/cm2 (0.620) / T-score (-3.1) / Z-score (-1.9) Left Femoral Neck: g/cm2 (0.643) / T-score (-2.8) / Z-score (-1.4) Right Femur Total: g/cm2 (0.599) / T-score (-3.2) / Z-score (-2.0) Right Femoral Neck: g/cm2 (0.634) / T-score (-2.9) / Z-score (-1.4) The T-Scores on the most recent prior examination were: Lumbar Spine (L1-L4): There has been worsening of bone density since the previous examination. Left Femur Total: which represents an improvement of 2.3%. Right Femur Total: which represents a worsening of 7.7%. BD/Dexa Bone Density Study IMPRESSION: The patient is considered osteoporotic as outlined below according to World Mina Organization (WHO) criteria with a high fracture risk. There has been worsening of bone density since the previous examination. Reference Information: The T-score is the number of standard deviations above or below the standard which is normal for young adults at their peak bone mineral density. The World Health Organization (WHO) interprets the T-scores as follows: Above -1 Normal bone density Between -1 and -2.5 Osteopenia Equal to / or below -2.5 Osteoporosis As a practical clinical guideline, osteopenia may be graded as follows: Mild -1 through -1.5 Moderate -1.6 through -2.0 Severe -2.1 through -2.4 The Z-score is the number of standard deviations above or below age-matched controls. A Z-score of less than -1.5 would be considered abnormal. References: 1. NIH Osteoporosis and Related Bone Diseases http://www.osteo.org 2. International Society for Clinical Densitometry http://www.iscd.org 3. National Osteoporosis Foundation http://www.nof.org Electronically Signed: Sj Schaefer, at 11:22 EDT , Service support ,
== END ==
PROVIDERS: Family Provider Internal Medicine; PCP Internal Medicine; Referring Provider Internal Medicine; Visit Provider Internal Medicine
DX: Z78.0 Asymptomatic menopausal state (principal)
CPT/HCPCS: 77080

== ENCOUNTER → 2019-02-25 13:43 | Outpatient (CLI) | payer MEDICARE, SELFPAY ==
--- NOTE | 2019-02-25 13:52 | RAD_ITS ---
STUDY: X-RAY - RIGHT FOOT CLINICAL: Female, 63 years old. Chronic pain TECHNIQUE: 3 view(s) of the foot. COMPARISON: 2010 FINDINGS: Bones are demineralized. Degenerative arthrosis noted at all visualized joint spaces, most only at the first MTP joint, and in the PIP and DIP joints. No demonstrated fracture or suspicious osseous lesion. Calcaneal spurs noted. RAD/Foot min 3 Views IMPRESSION: Diffuse osteopenia with degenerative arthrosis, no demonstrated fracture Electronically Signed: Mitch Turner MD at 14:26 EDT , Service support ,
--- NOTE | 2019-02-25 13:53 | RAD_ITS ---
STUDY: X-RAY - LEFT FOOT CLINICAL: Female, 63 years old. Pain, decreased range of motion TECHNIQUE: 3 view(s) of the foot. COMPARISON: None. FINDINGS: Bones are diffusely demineralized. No demonstrated fracture. Degenerative arthrosis visualized at all joint spaces most notably at the first MTP joint, and in the PIP and DIP joints. No demonstrated fracture or suspicious osseous lesion. RAD/Foot min 3 Views IMPRESSION: Demineralization of the osseous structures with degenerative arthrosis Electronically Signed: Mitch Turner MD at 14:28 EDT , Service support ,
== END ==
PROVIDERS: Family Provider Internal Medicine; PCP Internal Medicine; Referring Provider Podiatrist; Visit Provider Podiatrist
DX: M20.40 Other hammer toe(s) (acquired), unspecified foot (principal); G89.29 Other chronic pain; Z78.0 Asymptomatic menopausal state
CPT/HCPCS: 73630; 77080

== ENCOUNTER → 2019-03-13 12:01 | Outpatient (CLI) | payer MEDICARE, SELFPAY ==
[2019-03-13] MEDS: Zoledronic Acid 5 MG 100 ML 300 MG IV (12:18)
[2019-03-13 12:19] VITALS: BP 116/68; PULSE 87; RESP 16; O2SAT 99; BMI 21.4
== END ==
PROVIDERS: Family Provider Internal Medicine; PCP Internal Medicine; Referring Provider Internal Medicine; Visit Provider Internal Medicine
DX: M81.0 Age-related osteoporosis without current pathological fracture (principal)
CPT/HCPCS: 96365; A4216; J3489

== ENCOUNTER → 2019-05-26 11:47 | Outpatient (CLI) | payer MEDICARE, OTHER, SELFPAY ==
[2019-03-13 12:19] VITALS: BMI 21.4
[2019-05-26 13:50] LABS: Absolute Lymphocyte Count 2.48 X10^3/uL (0.83-4.51); Absolute Neutrophil Count 2.9 X10^3/uL (2.0-7.7); Basophil# 0.07 X10^3/uL; Basophil% 1.2 % (0-1); Eosinophil# 0.19 X10^3/uL; Eosinophils% 3.1 % (0-5); Hematocrit 40.3 % (37-47); Hemoglobin 12.3 g/dL (12.0-15.0); Lymphocyte # 2.48 X10^3/ul (4.0); Lymphocyte % 41.1 % (19-41); Mean Corp Hgb Conc 30.5 g/dL (32-36); Mean Corpuscular Volume 104.9 fL (81-99); Mean Platelet Vol. 9.9 fl (6.2-12.0); Monocyte# 0.41 X10^3/uL; Monocyte% 6.8 % (0-10); NRBC Flagged by Analyzer 0 % (0-5); Neutrophil # 2.87 X10^3/uL (2.7-7.7); Neutrophil % 47.5 % (47-70); Platelet Count 154 K/mm3 (150-450); RBC Distribution Width CV 13.4 % (11.6-14.6); Red Blood Count 3.84 M/mm3 (4.2-5.4)
[2019-05-26 13:59] LABS: ALB/GLOB Ratio 1.2 RATIO (0.9-2.4); AST(SGOT) 33 U/L (15-37); Alanine Aminotransfer ALT/SGPT 30 U/L (13-56); Albumin, Serum 3.7 g/dL (3.2-5.0); Alkaline Phosphatase 76 U/L (45-117); Anion Gap 5 (5-15); BUN 27 mg/dL (7-18); BUN/Creat Ratio 21.3 RATIO (10-20); Calcium,Total 8.8 mg/dL (8.5-10.1); Chloride 112 mmol/L (98-107); Creatinine, Serum 1.27 mg/dL (0.55-1.02); EST Glomerular Filtration Rate 45 mL/min (>60); Est Glom Filt Rate - Afr Amer 54 mL/min (>60); Globulin 3.1 g/dL (2.2-4.2); Glucose 100 mg/dL (74-106); Potassium 3.4 mmol/L (3.5-5.1); Protein, Total 6.8 g/dL (6.4-8.2); Sodium Level 145 mmol/L (136-145)
== END ==
PROVIDERS: Family Provider Internal Medicine; PCP Internal Medicine; Referring Provider Internal Medicine Rheumatology; Visit Provider Internal Medicine Rheumatology
DX: M06.09 Rheumatoid arthritis without rheumatoid factor, multiple sites (principal); M18.11 Unilateral primary osteoarthritis of first carpometacarpal joint, right hand; M17.0 Bilateral primary osteoarthritis of knee; M79.7 Fibromyalgia; M21.40 Flat foot [pes planus] (acquired), unspecified foot; M81.0 Age-related osteoporosis without current pathological fracture; Z79.899 Other long term (current) drug therapy
CPT/HCPCS: 36415; 80053; 85025

== ENCOUNTER → 2019-07-08 15:18 | Outpatient (CLI) | payer MEDICARE, OTHER, SELFPAY ==
[2019-03-13 12:19] VITALS: BMI 21.4
[2019-07-08 17:36] LABS: Absolute Lymphocyte Count 2.12 X10^3/uL (0.83-4.51); Absolute Neutrophil Count 3.3 X10^3/uL (2.0-7.7); Basophil# 0.05 X10^3/uL; Basophil% 0.8 % (0-1); Eosinophil# 0.19 X10^3/uL; Eosinophils% 3.1 % (0-5); Hematocrit 36.2 % (37-47); Hemoglobin 11.2 g/dL (12.0-15.0); Lymphocyte # 2.12 X10^3/ul (4.0); Lymphocyte % 34.1 % (19-41); Mean Corp Hgb Conc 30.9 g/dL (32-36); Mean Corpuscular Hgb 31.5 pg (27.0-32.0); Mean Corpuscular Volume 101.7 fL (81-99); Mean Platelet Vol. 9.9 fl (6.2-12.0); Monocyte# 0.58 X10^3/uL; Monocyte% 9.3 % (0-10); NRBC Flagged by Analyzer 0 % (0-5); Neutrophil # 3.25 X10^3/uL (2.7-7.7); Neutrophil % 52.4 % (47-70); Platelet Count 163 K/mm3 (150-450); RBC Distribution Width CV 12.4 % (11.6-14.6); RBC Distribution Width SD 46.5 fl (35.1-43.9); Red Blood Count 3.56 M/mm3 (4.2-5.4); White Blood Count 6.2 K/mm3 (4.4-11.0)
[2019-07-08 17:55] LABS: ALB/GLOB Ratio 1.3 RATIO (0.9-2.4); AST(SGOT) 17 U/L (15-37); Alanine Aminotransfer ALT/SGPT 23 U/L (13-56); Albumin, Serum 3.6 g/dL (3.2-5.0); Alkaline Phosphatase 80 U/L (45-117); Anion Gap 6 (5-15); BUN 27 mg/dL (7-18); BUN/Creat Ratio 27.3 RATIO (10-20); Chloride 114 mmol/L (98-107); Creatinine, Serum 0.99 mg/dL (0.55-1.02); EST Glomerular Filtration Rate 60 mL/min (>60); Est Glom Filt Rate - Afr Amer 72 mL/min (>60); Globulin 2.8 g/dL (2.2-4.2); Glucose 62 mg/dL (74-106); Potassium 3.9 mmol/L (3.5-5.1); Protein, Total 6.4 g/dL (6.4-8.2); Sodium Level 144 mmol/L (136-145)
== END ==
PROVIDERS: Family Provider Internal Medicine; PCP Internal Medicine; Referring Provider Internal Medicine Rheumatology; Visit Provider Internal Medicine Rheumatology
DX: M06.072 Rheumatoid arthritis without rheumatoid factor, left ankle and foot (principal); M18.11 Unilateral primary osteoarthritis of first carpometacarpal joint, right hand; M17.0 Bilateral primary osteoarthritis of knee; M79.7 Fibromyalgia; M21.40 Flat foot [pes planus] (acquired), unspecified foot; M81.0 Age-related osteoporosis without current pathological fracture; L63.9 Alopecia areata, unspecified; F32.89 Other specified depressive episodes; F41.8 Other specified anxiety disorders; Z79.899 Other long term (current) drug therapy
CPT/HCPCS: 36415; 80053; 85025

== ENCOUNTER → 2019-09-08 09:00 | Outpatient (CLI) | payer MEDICARE, OTHER, SELFPAY ==
[2019-03-13 12:19] VITALS: BMI 21.4
--- NOTE | 2019-09-08 09:04 | CDU_ITS ---
Reason For Study: carotid stenosis Rt. Velocities/BP Lt. Velocities/BP Prox CCA 141.2/27.9 cm/sec. Prox CCA 135.7/26.1 cm/sec. Mid CCA 95.5/27.9 cm/sec. Mid CCA 126.6/37.1 cm/sec. Dist CCA 107.2/32.3 cm/sec. Dist CCA 122.9/31.6 cm/sec. Prox ICA 112.0/18.8 cm/sec. Prox ICA 81.4/23.7 cm/sec. Mid ICA 101.0/26.1 cm/sec. Mid ICA 99.8/39.7 cm/sec. Dist ICA 117.5/29.8 cm/sec. Dist ICA 126.6/42.6 cm/sec. Rt. ICA/CCA = 1.2. Lt. ICA/CCA = 1.0. Prox ECA 150.3/20.6 cm/sec. Prox ECA 126.6/22.5 cm/sec. Rt. Vert. 57.5/19.0 cm/sec. Lt. Vert. 62.9/15.7 cm/sec. Right Extracranial There is intimal thickening but no significant atherosclerotic plaque noted in the right common carotid artery. There is intimal thickening but no significant atherosclerotic plaque noted in the right internal carotid artery. There is intimal thickening but no significant atherosclerotic plaque noted in the right external carotid artery. Antegrade flow is noted in the right vertebral artery. There is heterogeneous, irregular atherosclerotic plaque noted in the right bulb. Left Extracranial There is intimal thickening but no significant atherosclerotic plaque noted in the left common carotid artery. There is intimal thickening but no significant atherosclerotic plaque noted in the left internal carotid artery. There is intimal thickening but no significant atherosclerotic plaque noted in the left external carotid artery. Antegrade flow is noted in the left vertebral artery. There is heterogeneous, irregular atherosclerotic plaque noted in the left bulb. Procedure Carotid Duplex [id number]. The exam was diagnostic. Exam performed in department. Interpretation Summary No significant atherosclerotic plaque or stenosis noted in the internal carotid arteries bilaterally. Flow within the vertebral arteries is antegrade bilaterally. Heterogeneous, irregular atherosclerotic plaque is noted in the carotid bulbs bilaterally, which does not appear to be hemodynamically significant. Ordering Physician: Monika Robles Performed By: Lonny Wong RVT
== END ==
LOC: CVS 09:01
PROVIDERS: PCP Internal Medicine; Referring Provider Internal Medicine; Visit Provider Internal Medicine
DX: I65.23 Occlusion and stenosis of bilateral carotid arteries (principal)
CPT/HCPCS: 93880

== ENCOUNTER → 2019-09-09 13:43 | Outpatient (CLI) | payer MEDICARE, OTHER, SELFPAY ==
[2019-03-13 12:19] VITALS: BMI 21.4
--- NOTE | 2019-09-09 13:45 | BI_ITS ---
MAMMOGRAPHY - BILATERAL SCREENING REASON FOR EXAM: Female, 63 years old. Routine annual screening examination. PERTINENT HISTORY: Sisters with breast cancer. Aunt with breast cancer. Bilateral breast implants. TECHNIQUE: Digital bilateral breast maura (3D mammographic acquisition) in the CC and MLO projections. 2-D mediolateral oblique (MLO) and craniocaudad (CC) views of both breasts were obtained. CAD: Full Field Digital Mammography with Computer Added Detection was performed. COMPARISON: Comparison is made with prior study dated August 15, 2018 and April 24, 2017. FINDINGS: Breast Composition: The breasts are heterogeneously dense, which may obscure small masses. There are no dominant masses or suspicious calcifications. Stable appearance of the bilateral breast implants. No other significant abnormalities are identified. There has been no significant change since the prior study. BI/SCREEN MAMM (CAD) W/MAURA BILAT IMPRESSION: Stable bilateral screening mammogram. Yearly follow-up mammogram recommended. (A) ASSESSMENT CATEGORY: BIRADS Category 2: Benign. A letter regarding these results will be sent to the patient by the facility within 30 days. Approximately 10% of breast cancers are not detected by mammography. A normal mammogram should not delay biopsy of a clinically suspicious abnormality. [id number] Electronically Signed: Sj Schaefer, at 15:48 EST , Service support ,
== END ==
PROVIDERS: PCP Internal Medicine; Referring Provider Internal Medicine; Visit Provider Internal Medicine
DX: Z12.31 Encounter for screening mammogram for malignant neoplasm of breast (principal)
CPT/HCPCS: 77063; 77067

== ENCOUNTER → 2019-11-11 16:56 | Outpatient (CLI) | payer MEDICARE, OTHER, SELFPAY ==
[2019-03-13 12:19] VITALS: BMI 21.4
--- NOTE | 2019-11-11 17:00 | RAD_ITS ---
STUDY: X-RAY - RIGHT WRIST REASON FOR EXAM: Female, 64 years old. PATIENT FELL. PAIN, LOTS OF SWELLING AND DISCOLORATION TO RIGHT HAND INTO RIGHT WRIST. TECHNIQUE: 3 view(s) of the wrist were obtained. COMPARISON: None. FINDINGS: No demonstrated acute fracture of the wrist or visualized bony structures of the hand. Cortical plate-screw construct of the distal ulna noted. Moderate to significant degenerative changes are seen throughout the carpal bony structures and the first CMC joint. Mild soft tissue swelling is seen around the hand and wrist. RAD/Wrist min 3 Views IMPRESSION: Mild soft tissue swelling around the hand and wrist and degenerative changes. Electronically Signed: Markell Chaudhary MD at 17:35 EDT , Service support ,
--- NOTE | 2019-11-11 17:00 | RAD_ITS ---
STUDY: X-RAY - RIGHT HAND REASON FOR EXAM: Female, 64 years old. PATIENT FELL. PAIN, LOTS OF SWELLING AND DISCOLORATION TO RIGHT HAND INTO RIGHT WRIST. TECHNIQUE: 4 view(s) of the hand. COMPARISON: None. FINDINGS: No fracture or displaced bony fragment is seen. The bony structures are diffusely demineralized. Degenerative changes are present throughout the hand and wrist mild soft tissue swelling is present throughout the hand. Distal ulnar hardware noted. RAD/Hand Min 3 Views IMPRESSION: Degenerative joint disease of the hand and wrist, as described above. Electronically Signed: Markell Chaudhary MD at 17:43 EDT , Service support ,
== END ==
PROVIDERS: PCP Internal Medicine; Referring Provider Internal Medicine; Visit Provider Internal Medicine
DX: M79.641 Pain in right hand (principal)
CPT/HCPCS: 73110; 73130

== ENCOUNTER → 2020-01-27 12:49 | Outpatient (CLI) | payer MEDICARE, OTHER, SELFPAY ==
[2019-03-13 12:19] VITALS: BMI 21.4
[2019-12-03 14:06] VITALS: BMI 21.4
[2020-01-27 15:41] LABS: Absolute Lymphocyte Count 1.91 X10^3/uL (0.83-4.51); Basophil# 0.04 X10^3/uL; Basophil% 0.8 % (0-1); Eosinophil# 0.13 X10^3/uL; Eosinophils% 2.4 % (0-5); Hematocrit 34.3 % (37-47); Hemoglobin 10.4 g/dL (12.0-15.0); Lymphocyte # 1.91 X10^3/ul (4.0); Mean Corp Hgb Conc 30.3 g/dL (32-36); Mean Corpuscular Hgb 31.6 pg (27.0-32.0); Mean Corpuscular Volume 104.3 fL (81-99); Monocyte# 0.21 X10^3/uL; NRBC Flagged by Analyzer 0 % (0-5); Neutrophil # 3.01 X10^3/uL (2.7-7.7); Neutrophil % 56.6 % (47-70); Platelet Count 215 K/mm3 (150-450); RBC Distribution Width CV 12.7 % (11.6-14.6); RBC Distribution Width SD 48.1 fl (35.1-43.9); Red Blood Count 3.29 M/mm3 (4.2-5.4); White Blood Count 5.3 K/mm3 (4.4-11.0)
[2020-01-27 16:28] LABS: AST(SGOT) 18 U/L (15-37); Alanine Aminotransfer ALT/SGPT 21 U/L (13-56); Albumin, Serum 3.5 g/dL (3.2-5.0); Alkaline Phosphatase 74 U/L (45-117); Anion Gap 7 (5-15); BUN 26 mg/dL (7-18); Calcium,Total 8.6 mg/dL (8.5-10.1); Chloride 110 mmol/L (98-107); Creatinine, Serum 1.18 mg/dL (0.55-1.02); EST Glomerular Filtration Rate 49 mL/min (>60); Est Glom Filt Rate - Afr Amer 59 mL/min (>60); Globulin 3.4 g/dL (2.2-4.2); Glucose 92 mg/dL (74-106); Potassium 3.6 mmol/L (3.5-5.1); Protein, Total 6.9 g/dL (6.4-8.2); Sodium Level 143 mmol/L (136-145)
== END ==
PROVIDERS: PCP Internal Medicine; Referring Provider Internal Medicine Rheumatology; Visit Provider Internal Medicine Rheumatology
DX: M06.09 Rheumatoid arthritis without rheumatoid factor, multiple sites (principal); M79.7 Fibromyalgia; M18.11 Unilateral primary osteoarthritis of first carpometacarpal joint, right hand; M17.0 Bilateral primary osteoarthritis of knee; M21.40 Flat foot [pes planus] (acquired), unspecified foot; M81.0 Age-related osteoporosis without current pathological fracture; L63.9 Alopecia areata, unspecified; F41.8 Other specified anxiety disorders; F32.89 Other specified depressive episodes; E03.9 Hypothyroidism, unspecified; G47.00 Insomnia, unspecified; J45.909 Unspecified asthma, uncomplicated; K21.9 Gastro-esophageal reflux disease without esophagitis; Z79.899 Other long term (current) drug therapy; Z86.718 Personal history of other venous thrombosis and embolism; Z87.01 Personal history of pneumonia (recurrent)
CPT/HCPCS: 36415; 80053; 85025

== ENCOUNTER → 2020-04-14 13:25 | Outpatient (CLI) | payer MEDICARE, OTHER, SELFPAY ==
[2019-12-03 14:06] VITALS: BMI 21.4
--- NOTE | 2020-04-14 13:43 | MRI_ITS ---
STUDY: MRI BRAIN WITH AND WITHOUT CONTRAST REASON FOR EXAM: Female, 64 years old. confusion, memory issues TECHNIQUE: Standardized multiplanar fat and water weighted pulse sequences were obtained. IV Yes YES was administered for the contrast portion of the examination. COMPARISON: MR brain 06/10/2018 FINDINGS: Normal size of the ventricles and extra-axial spaces for the patient''s age. Normal white matter tracts of the supratentorial brain. Normal bilateral basal ganglia. Normal thalami. There is no extra-axial fluid accumulation. Normal flow voids within the major intracranial circulation suggesting patency by spin echo criteria. Normal venous enhancement. There is no enhancing intra-axial or extra-axial abnormality. Normal sella turcica, pituitary gland, infundibular stalk, optic chiasm and hypothalamus. Normal tectal plate and pineal gland. Normal midbrain, garrick and medulla. Normal cerebellum. Normal basal cisterns. Normal bilateral temporal bones. Normal bilateral internal auditory canals. No demonstrated orbital abnormality, within the constraints of a routine brain study. Normal visualized paranasal sinuses. Normal calvarium and skull base. Normal visualized soft tissue structures. Normal visualized upper cervical spine. MRI/Brain W/WO Contrast IMPRESSION: Normal unenhanced and enhanced MRI of the brain. Electronically Signed: Ed Sweet MD at 0:02 EDT , Service support ,
[2020-04-14 15:21] LABS: CREATININE FINGERSTICK 0.8 mg/dL (0.55-1.02); EGFR FINGERSTICK > 60.0000 mL/min (>60)
== END ==
PROVIDERS: PCP Internal Medicine; Referring Provider Internal Medicine; Visit Provider Internal Medicine
DX: R41.0 Disorientation, unspecified (principal)
CPT/HCPCS: 70553; A9575

== ENCOUNTER → 2020-05-31 15:28 | Outpatient (CLI) | payer MEDICARE, OTHER, SELFPAY ==
[2019-12-03 14:06] VITALS: BMI 21.4
[2020-05-31 17:55] LABS: Absolute Lymphocyte Count 1.78 X10^3/uL (0.83-4.51); Absolute Neutrophil Count 3.7 X10^3/uL (2.0-7.7); Basophil# 0.07 X10^3/uL; Basophil% 1.1 % (0-1); Eosinophil# 0.25 X10^3/uL; Eosinophils% 3.9 % (0-5); Hematocrit 35.1 % (37-47); Hemoglobin 10.9 g/dL (12.0-15.0); Lymphocyte # 1.78 X10^3/ul (4.0); Lymphocyte % 27.7 % (19-41); Mean Corp Hgb Conc 31.1 g/dL (32-36); Mean Corpuscular Hgb 31.5 pg (27.0-32.0); Mean Corpuscular Volume 101.4 fL (81-99); Monocyte# 0.57 X10^3/uL; Monocyte% 8.9 % (0-10); NRBC Flagged by Analyzer 0 % (0-5); Neutrophil # 3.74 X10^3/uL (2.7-7.7); Neutrophil % 58.2 % (47-70); Platelet Count 224 K/mm3 (150-450); RBC Distribution Width CV 13.7 % (11.6-14.6); RBC Distribution Width SD 51.2 fl (35.1-43.9); Red Blood Count 3.46 M/mm3 (4.2-5.4); White Blood Count 6.4 K/mm3 (4.4-11.0)
[2020-05-31 18:13] LABS: ALB/GLOB Ratio 1.3 RATIO (0.9-2.4); AST(SGOT) 27 U/L (15-37); Alanine Aminotransfer ALT/SGPT 31 U/L (13-56); Albumin, Serum 3.9 g/dL (3.2-5.0); Alkaline Phosphatase 81 U/L (45-117); Anion Gap 7 (5-15); BUN 26 mg/dL (7-18); BUN/Creat Ratio 25.5 RATIO (10-20); Calcium,Total 8.4 mg/dL (8.5-10.1); Chloride 107 mmol/L (98-107); Creatinine, Serum 1.02 mg/dL (0.55-1.02); EST Glomerular Filtration Rate 58 mL/min (>60); Est Glom Filt Rate - Afr Amer 70 mL/min (>60); Globulin 3.1 g/dL (2.2-4.2); Glucose 90 mg/dL (74-106); Potassium 4.1 mmol/L (3.5-5.1); Sodium Level 141 mmol/L (136-145)
== END ==
PROVIDERS: PCP Internal Medicine; Referring Provider Internal Medicine Rheumatology; Visit Provider Internal Medicine Rheumatology
DX: M06.09 Rheumatoid arthritis without rheumatoid factor, multiple sites (principal); M79.7 Fibromyalgia; M18.11 Unilateral primary osteoarthritis of first carpometacarpal joint, right hand; M17.0 Bilateral primary osteoarthritis of knee; M21.40 Flat foot [pes planus] (acquired), unspecified foot; L63.9 Alopecia areata, unspecified; E03.9 Hypothyroidism, unspecified; G47.00 Insomnia, unspecified; I82.509 Chronic embolism and thrombosis of unspecified deep veins of unspecified lower extremity; J45.909 Unspecified asthma, uncomplicated; M81.0 Age-related osteoporosis without current pathological fracture; K21.9 Gastro-esophageal reflux disease without esophagitis; F32.89 Other specified depressive episodes; F41.8 Other specified anxiety disorders; Z79.899 Other long term (current) drug therapy; Z87.01 Personal history of pneumonia (recurrent)
CPT/HCPCS: 36415; 80053; 85025

== ENCOUNTER → 2020-08-10 16:11 | Outpatient (CLI) | payer MEDICARE, OTHER, SELFPAY ==
[2019-12-03 14:06] VITALS: BMI 21.4
[2020-08-10 17:49] LABS: Absolute Lymphocyte Count 1.55 X10^3/uL (0.83-4.51); Absolute Neutrophil Count 4.3 X10^3/uL (2.0-7.7); Basophil# 0.06 X10^3/uL; Basophil% 0.9 % (0-1); Eosinophil# 0.12 X10^3/uL; Eosinophils% 1.9 % (0-5); Hematocrit 35.3 % (37-47); Lymphocyte # 1.55 X10^3/ul (4.0); Lymphocyte % 24.1 % (19-41); Mean Corp Hgb Conc 31.2 g/dL (32-36); Mean Corpuscular Hgb 31.3 pg (27.0-32.0); Mean Corpuscular Volume 100.6 fL (81-99); Mean Platelet Vol. 9.9 fl (6.2-12.0); Monocyte% 6.2 % (0-10); NRBC Flagged by Analyzer 0 % (0-5); Neutrophil # 4.29 X10^3/uL (2.7-7.7); Neutrophil % 66.7 % (47-70); Platelet Count 204 K/mm3 (150-450); RBC Distribution Width CV 12.4 % (11.6-14.6); RBC Distribution Width SD 45.5 fl (35.1-43.9); Red Blood Count 3.51 M/mm3 (4.2-5.4); White Blood Count 6.4 K/mm3 (4.4-11.0)
[2020-08-10 18:03] LABS: ALB/GLOB Ratio 1.3 RATIO (0.9-2.4); AST(SGOT) 28 U/L (15-37); Alanine Aminotransfer ALT/SGPT 26 U/L (13-56); Albumin, Serum 3.9 g/dL (3.2-5.0); Alkaline Phosphatase 93 U/L (45-117); Anion Gap 6 (5-15); BUN 32 mg/dL (7-18); BUN/Creat Ratio 31.1 RATIO (10-20); Calcium,Total 8.2 mg/dL (8.5-10.1); Chloride 104 mmol/L (98-107); Creatinine, Serum 1.03 mg/dL (0.55-1.02); EST Glomerular Filtration Rate 57 mL/min (>60); Est Glom Filt Rate - Afr Amer 69 mL/min (>60); Globulin 3.1 g/dL (2.2-4.2); Glucose 84 mg/dL (74-106); Potassium 4.8 mmol/L (3.5-5.1); Sodium Level 138 mmol/L (136-145)
== END ==
PROVIDERS: PCP Internal Medicine; Referring Provider Internal Medicine Rheumatology; Visit Provider Internal Medicine Rheumatology
DX: M06.09 Rheumatoid arthritis without rheumatoid factor, multiple sites (principal); M17.0 Bilateral primary osteoarthritis of knee; M18.11 Unilateral primary osteoarthritis of first carpometacarpal joint, right hand; M21.40 Flat foot [pes planus] (acquired), unspecified foot; M79.7 Fibromyalgia; L63.9 Alopecia areata, unspecified; E03.9 Hypothyroidism, unspecified; G47.00 Insomnia, unspecified; M81.0 Age-related osteoporosis without current pathological fracture; K21.9 Gastro-esophageal reflux disease without esophagitis; F32.89 Other specified depressive episodes; Z79.899 Other long term (current) drug therapy
CPT/HCPCS: 36415; 80053; 85025

== ENCOUNTER → 2020-10-04 10:45 | Outpatient (CLI) | payer MEDICARE, OTHER, SELFPAY ==
[2019-12-03 14:06] VITALS: BMI 21.4
[2020-10-04 12:10] LABS: Absolute Lymphocyte Count 1.62 X10^3/uL (0.83-4.51); Basophil# 0.06 X10^3/uL; Basophil% 1.2 % (0-1); Eosinophil# 0.12 X10^3/uL; Eosinophils% 2.3 % (0-5); Hematocrit 38.6 % (37-47); Hemoglobin 11.5 g/dL (12.0-15.0); Lymphocyte # 1.62 X10^3/ul (4.0); Lymphocyte % 31.4 % (19-41); Mean Corp Hgb Conc 29.8 g/dL (32-36); Mean Corpuscular Hgb 31.2 pg (27.0-32.0); Mean Corpuscular Volume 104.6 fL (81-99); Mean Platelet Vol. 9.1 fl (6.2-12.0); Monocyte% 5.8 % (0-10); NRBC Flagged by Analyzer 0 % (0-5); Neutrophil # 3.03 X10^3/uL (2.7-7.7); Neutrophil % 58.7 % (47-70); Platelet Count 201 K/mm3 (150-450); RBC Distribution Width CV 13.1 % (11.6-14.6); RBC Distribution Width SD 49.6 fl (35.1-43.9); Red Blood Count 3.69 M/mm3 (4.2-5.4); White Blood Count 5.2 K/mm3 (4.4-11.0)
[2020-10-04 12:22] LABS: ALB/GLOB Ratio 1.1 RATIO (0.9-2.4); AST(SGOT) 19 U/L (15-37); Alanine Aminotransfer ALT/SGPT 26 U/L (13-56); Albumin, Serum 3.6 g/dL (3.2-5.0); Alkaline Phosphatase 86 U/L (45-117); Anion Gap 6 (5-15); BUN 29 mg/dL (7-18); BUN/Creat Ratio 27.6 RATIO (10-20); Calcium,Total 8.2 mg/dL (8.5-10.1); Chloride 112 mmol/L (98-107); Creatinine, Serum 1.05 mg/dL (0.55-1.02); EST Glomerular Filtration Rate 56 mL/min (>60); Est Glom Filt Rate - Afr Amer 67 mL/min (>60); Globulin 3.3 g/dL (2.2-4.2); Glucose 112 mg/dL (74-106); Potassium 3.7 mmol/L (3.5-5.1); Protein, Total 6.9 g/dL (6.4-8.2); Sodium Level 144 mmol/L (136-145)
== END ==
PROVIDERS: PCP Internal Medicine; Referring Provider Internal Medicine Rheumatology; Visit Provider Internal Medicine Rheumatology
DX: M06.09 Rheumatoid arthritis without rheumatoid factor, multiple sites (principal); M79.7 Fibromyalgia; M18.11 Unilateral primary osteoarthritis of first carpometacarpal joint, right hand; M17.0 Bilateral primary osteoarthritis of knee; M21.40 Flat foot [pes planus] (acquired), unspecified foot; M81.0 Age-related osteoporosis without current pathological fracture; L63.9 Alopecia areata, unspecified; F41.8 Other specified anxiety disorders; E03.9 Hypothyroidism, unspecified; J45.909 Unspecified asthma, uncomplicated; K21.9 Gastro-esophageal reflux disease without esophagitis; Z79.899 Other long term (current) drug therapy; Z87.01 Personal history of pneumonia (recurrent); Z86.718 Personal history of other venous thrombosis and embolism
CPT/HCPCS: 36415; 80053; 85025

== ENCOUNTER 2020-10-11 13:27 | Outpatient (RCR) | payer MEDICARE, OTHER, SELFPAY ==
[2019-12-03 14:06] VITALS: BMI 21.4
[2020-10-11] MEDS: COVID-19 VACC, MRNA(PFIZER)/PF 30 MCG/0.3 ML SYRINGE IM (12:05)
[2020-11-01] MEDS: COVID-19 VACC, MRNA(PFIZER)/PF 30 MCG/0.3 ML SYRINGE IM (12:03)
== END 2021-01-10 23:59 ==
LOC: IMMUN 13:27
PROVIDERS: PCP Internal Medicine; Visit Provider Family Medicine
DX: Z23 Encounter for immunization (principal)
CPT/HCPCS: 0001A; 0002A; 91300

== ENCOUNTER → 2020-11-21 10:42 | Outpatient (CLI) | payer MEDICARE, OTHER, SELFPAY ==
[2019-12-03 14:06] VITALS: BMI 21.4
[2020-11-21 12:44] LABS: Absolute Neutrophil Count 3.5 X10^3/uL (2.0-7.7); Basophil# 0.06 X10^3/uL; Eosinophil# 0.14 X10^3/uL; Eosinophils% 2.2 % (0-5); Hematocrit 39.9 % (37-47); Hemoglobin 12.1 g/dL (12.0-15.0); Lymphocyte % 33.5 % (19-41); Mean Corp Hgb Conc 30.3 g/dL (32-36); Mean Corpuscular Hgb 30.3 pg (27.0-32.0); Mean Platelet Vol. 10.1 fl (6.2-12.0); Monocyte# 0.47 X10^3/uL; Monocyte% 7.5 % (0-10); NRBC Flagged by Analyzer 0 % (0-5); Neutrophil # 3.49 X10^3/uL (2.7-7.7); Neutrophil % 55.6 % (47-70); Platelet Count 282 K/mm3 (150-450); RBC Distribution Width CV 12.4 % (11.6-14.6); RBC Distribution Width SD 46.3 fl (35.1-43.9); Red Blood Count 3.99 M/mm3 (4.2-5.4); White Blood Count 6.3 K/mm3 (4.4-11.0)
[2020-11-21 12:57] LABS: ALB/GLOB Ratio 1.2 RATIO (0.9-2.4); AST(SGOT) 24 U/L (15-37); Alanine Aminotransfer ALT/SGPT 34 U/L (13-56); Albumin, Serum 3.7 g/dL (3.2-5.0); Alkaline Phosphatase 87 U/L (45-117); Anion Gap 5 (5-15); BUN 19 mg/dL (7-18); BUN/Creat Ratio 18.8 RATIO (10-20); Calcium,Total 8.4 mg/dL (8.5-10.1); Chloride 108 mmol/L (98-107); Creatinine, Serum 1.01 mg/dL (0.55-1.02); EST Glomerular Filtration Rate 58 mL/min (>60); Est Glom Filt Rate - Afr Amer 70 mL/min (>60); Glucose 206 mg/dL (74-106); Potassium 4.4 mmol/L (3.5-5.1); Protein, Total 6.7 g/dL (6.4-8.2); Sodium Level 140 mmol/L (136-145)
== END ==
PROVIDERS: PCP Internal Medicine; Referring Provider Internal Medicine Rheumatology; Visit Provider Internal Medicine Rheumatology
DX: M06.09 Rheumatoid arthritis without rheumatoid factor, multiple sites (principal); M18.11 Unilateral primary osteoarthritis of first carpometacarpal joint, right hand; M79.7 Fibromyalgia; M17.0 Bilateral primary osteoarthritis of knee; M21.40 Flat foot [pes planus] (acquired), unspecified foot; M81.0 Age-related osteoporosis without current pathological fracture; L63.9 Alopecia areata, unspecified; F41.8 Other specified anxiety disorders; E03.9 Hypothyroidism, unspecified; J45.909 Unspecified asthma, uncomplicated; K21.9 Gastro-esophageal reflux disease without esophagitis; Z79.899 Other long term (current) drug therapy; Z86.718 Personal history of other venous thrombosis and embolism; Z87.01 Personal history of pneumonia (recurrent)
CPT/HCPCS: 36415; 80053; 85025

== ENCOUNTER → 2020-12-02 13:28 | Outpatient (CLI) | payer MEDICARE, OTHER, SELFPAY ==
[2019-12-03 14:06] VITALS: BMI 21.4
[2020-12-02] MEDS: 0.9% NaCl Peripheral Flush Adult/Peds IV (13:45)
[2020-12-02] MEDS: Zoledronic Acid 5 MG 100 ML 300 MG IV (13:46)
[2020-12-02 13:49] VITALS: BP 132/61; PULSE 85; RESP 16; TEMP 36.8; O2SAT 95; BMI 18.0
[2020-12-02 14:09] VITALS: BP 120/56; PULSE 84; RESP 16; TEMP 36.6; O2SAT 95
== END ==
PROVIDERS: PCP Internal Medicine; Referring Provider Internal Medicine; Visit Provider Internal Medicine
DX: M81.0 Age-related osteoporosis without current pathological fracture (principal)
CPT/HCPCS: 96365; A4216; J3489

== ENCOUNTER → 2020-12-05 13:00 | Outpatient (CLI) | payer MEDICARE, OTHER, SELFPAY ==
[2019-12-03 14:06] VITALS: BMI 21.4
[2020-12-02 13:49] VITALS: BMI 18.0
--- NOTE | 2020-12-05 13:10 | BI_ITS ---
MAMMOGRAPHY - BILATERAL SCREENING REASON FOR EXAM: Female, 65 years old. Routine annual screening examination. PERTINENT HISTORY: Sisters with breast cancer. Aunt with breast cancer. Bilateral breast prostheses. TECHNIQUE: Digital bilateral breast maura (3D mammographic acquisition) in the CC and MLO projections. 2-D mediolateral oblique (MLO) and craniocaudad (CC) views of both breasts were obtained. CAD: Full Field Digital Mammography with Computer Added Detection was performed. COMPARISON: Comparison is made with prior study dated 09/09/2019 and 08/15/2018. FINDINGS: Breast Composition: The breasts are heterogeneously dense, which may obscure small masses. There are no dominant masses or suspicious calcifications. Stable benign-appearing bilateral axillary lymph nodes. No other significant abnormalities are identified. There has been no significant change since the prior study. BI/SCRN MAMM (CAD)W/MAURA BILAT IMPRESSION: Stable bilateral screening mammogram. Yearly follow-up mammogram recommended. (A) ASSESSMENT CATEGORY: BIRADS Category 2: Benign. A letter regarding these results will be sent to the patient by the facility within 30 days. Approximately 10% of breast cancers are not detected by mammography. A normal mammogram should not delay biopsy of a clinically suspicious abnormality. [id number] Electronically Signed: Sj Schaefer MD at 15:31 EDT , Service support ,
== END ==
PROVIDERS: PCP Internal Medicine; Referring Provider Internal Medicine; Visit Provider Internal Medicine
DX: Z12.31 Encounter for screening mammogram for malignant neoplasm of breast (principal)
CPT/HCPCS: 77063; 77067

== ENCOUNTER → 2021-04-12 09:58 | Outpatient (CLI) | payer MEDICARE, OTHER, SELFPAY ==
--- NOTE | 2021-04-12 10:01 | CDU_ITS ---
Reason For Study: STENOSIS Rt. Velocities/BP Lt. Velocities/BP Prox CCA 84.2/16.4 cm/sec. Prox CCA 106.4/6.9 cm/sec. Mid CCA 75.1/15.1 cm/sec. Mid CCA 83.0/20.4 cm/sec. Dist CCA 81.6/15.1 cm/sec. Dist CCA 87.9/15.5 cm/sec. Prox ICA 102.5/12.5 cm/sec. Prox ICA 61.4/16.4 cm/sec. Mid ICA 96.0/24.3 cm/sec. Mid ICA 101.8/29.4 cm/sec. Dist ICA 114.2/33.4 cm/sec. Dist ICA 106.7/25.7 cm/sec. Rt. ICA/CCA = 114.2/84.2=1.4. Lt. ICA/CCA = 106.7/106.4=1.0. Prox ECA 116.8/9.9 cm/sec. Prox ECA 171.0/19.4 cm/sec. Rt. Vert. 43.8/16.4 cm/sec. Lt. Vert. 96.9/15.8 cm/sec. Right Extracranial There is intimal thickening but no significant atherosclerotic plaque noted in the right common carotid artery. There is intimal thickening but no significant atherosclerotic plaque noted in the right internal carotid artery. There is intimal thickening but no significant atherosclerotic plaque noted in the right external carotid artery. Antegrade flow is noted in the right vertebral artery. There is heterogeneous, irregular atherosclerotic plaque noted in the right bulb. Left Extracranial There is intimal thickening but no significant atherosclerotic plaque noted in the left common carotid artery. There is intimal thickening but no significant atherosclerotic plaque noted in the left internal carotid artery. There is heterogeneous, smooth atherosclerotic plaque noted in the left external carotid artery. Antegrade flow is noted in the left vertebral artery. There is heterogeneous, irregular atherosclerotic plaque noted in the left bulb. Procedure Carotid Duplex [id number]. This is a Carotid Duplex examination using B-mode, color flow and specral Doppler. Exam performed in department. VL/Carotid Duplex Ultrasound Interpretation Summary Intimal thickening right proximal internal carotid artery with less than 50% st enosis Less than 50% stenosis right external carotid artery Intimal thickening at the proximal left internal carotid artery with less than 50% stenosis. Mild irregular plaque at the proximal left external carotid artery with less th an 50% stenosis Patent and antegrade vertebral arteries bilaterally No change from the previous examination of September 08, 2019 Ordering Physician: Monika Robles Referring Physician: Monika Robles Performed By: Alma Gonzales, YUSUF, RVT
--- NOTE | 2021-04-12 10:42 | BD_ITS ---
STUDY: DUAL ENERGY X-RAY ABSORPTIOMETRY / DXA REASON FOR EXAM: Female, 65 years old. [id number]. Patient is postmenopausal. TECHNIQUE: Bone Mineral Density (BMD) measurements of lumbar spine and bilateral hips were obtained. COMPARISON: Comparison is made with prior examination dated 02/25/2019. FINDINGS: Lumbar Spine (L1-L4): g/cm2 (0.832) / T-score (-2.0) / Z-score (0.0) Findings are suggestive of osteopenia with a moderate fracture risk. Left Femur Total: g/cm2 (0.525) / T-score (-3.4) / Z-score (-2.1) Left Femoral Neck: g/cm2 (0.524) / T-score (-2.9) / Z-score (-1.3) Right Femur Total: g/cm2 (0.522) / T-score (-3.4) / Z-score (-2.1) Right Femoral Neck: g/cm2 (0.472) / T-score (-3.4) / Z-score (-1.7) The T-Scores on the most recent prior examination were: Lumbar Spine (L1-L4): There has been worsening of bone density since the previous examination. Left Femur Total: which represents a worsening of 7.1%. Right Femur Total: which represents a worsening of 4.1%. BD/Dexa Bone Density Study IMPRESSION: The patient is considered osteoporotic as outlined below according to World Mina Organization (WHO) criteria with a high fracture risk. There has been worsening of bone density since the previous examination. Reference Information: The T-score is the number of standard deviations above or below the standard which is normal for young adults at their peak bone mineral density. The World Health Organization (WHO) interprets the T-scores as follows: Above -1 Normal bone density Between -1 and -2.5 Osteopenia Equal to / or below -2.5 Osteoporosis As a practical clinical guideline, osteopenia may be graded as follows: Mild -1 through -1.5 Moderate -1.6 through -2.0 Severe -2.1 through -2.4 The Z-score is the number of standard deviations above or below age-matched controls. A Z-score of less than -1.5 would be considered abnormal. References: 1. NIH Osteoporosis and Related Bone Diseases www osteo.org 2. International Society for Clinical Densitometry www iscd.org 3. National Osteoporosis Foundation www nof.org Electronically Signed: Sj Schaefer MD at 9:38 EDT , Service support ,
== END ==
PROVIDERS: PCP Internal Medicine; Referring Provider Internal Medicine; Visit Provider Internal Medicine
DX: I65.23 Occlusion and stenosis of bilateral carotid arteries (principal); Z78.0 Asymptomatic menopausal state; M81.0 Age-related osteoporosis without current pathological fracture
CPT/HCPCS: 77080; 93880

== ENCOUNTER → 2022-01-10 | Outpatient (CLI) | payer OTHER, SELFPAY ==
--- NOTE | 2022-01-10 14:10 | VDLE_ITS ---
Reason For Study: edema RIGHT LEFT GSV is normal. GSV is normal. CFV is compressible, spontaneous, phasic, CFV is compressible, spontaneous, phasic, competent and demonstrates normal competent, and demonstrates normal augmentation. augmentation. FV is compressible, spontaneous, phasic, FV is compressible, spontaneous, phasic, competent and demonstrates normal competent and demonstrates normal augmentation. augmentation. POP V is compressible, spontaneous, phasic, POP V is compressible, spontaneous, phasic, competent and demonstrates normal competent and demonstrates normal augmentation. augmentation. T/P Trunk is compressible. T/P Trunk is compressible. PTV is compressible. PTV is compressible. RT PerV is compressible. LT PerV is compressible. Procedure This is a venous duplex using B-mode, color flow and spectral Doppler. Exam performed in department. The exam was diagnostic. A preliminary report was called and/or faxed to Dr. Robles. VL/Venous Duplex US - Ethan Extrem Interpretation Summary Deep veins of the lower extremities are bilaterally patent and compressible seg mentally. There is no evidence of deep vein thrombosis on either side. Valvular competence appears in tact within the proximal deep venous systems bilaterally. The great saphenous veins appear bila terally patent and compressible segmentally. Ordering Physician: Monika Robles Performed By: Lonny Wong RVT
== END | disposition home or self-care (01) ==
LOC: CVS 14:08
PROVIDERS: PCP Internal Medicine; Referring Provider Internal Medicine; Visit Provider Internal Medicine
DX: R60.0 Localized edema (principal)
CPT/HCPCS: 83880; 93970

== ENCOUNTER → 2022-01-10 | Outpatient (CLI) | payer MEDICARE, OTHER, SELFPAY ==
[2022-01-10 13:40] LABS: BNP,B-Type NATRIURETIC PEPTIDE 42.1 pg/mL (0-100)
== END | disposition home or self-care (01) ==
LOC: LABSPEC 13:12
PROVIDERS: PCP Internal Medicine; Visit Provider Internal Medicine
DX: R60.9 Edema, unspecified (principal)
CPT/HCPCS: 83880

== ENCOUNTER → 2022-02-21 | Outpatient (CLI) | payer MEDICARE, SELFPAY ==
--- NOTE | 2022-02-21 15:54 | RAD_ITS ---
INDICATION: ABN LUNG FUNCTION TEST EXAMINATION/TECHNIQUE: X-RAY - 2 views of chest COMPARISON: Chest x-ray from 05/20/2018. FINDINGS: LINES/DEVICES: Surgical clips and IVC filter within upper abdomen. LUNGS: No pulmonary edema or focal airspace consolidation. No sizable pleural effusion. No detectable pneumothorax. Stable mildly elevated left hemidiaphragm. MEDIASTINUM AND CARDIOVASCULAR STRUCTURES: Heart normal size. Atherosclerotic calcifications along aorta. BONES AND SOFT TISSUES: Skeletal degenerative changes with stable mild thoracolumbar scoliosis. RAD/Chest PA and Lateral IMPRESSION: No radiographic evidence of acute cardiopulmonary disease. Electronically Signed: Delta Loaiza MD at 6:21 EDT ,
== END | disposition home or self-care (01) ==
LOC: MTRAD 15:53
PROVIDERS: PCP Internal Medicine; Referring Provider Internal Medicine; Visit Provider Internal Medicine
DX: R94.2 Abnormal results of pulmonary function studies (principal)
CPT/HCPCS: 71046

== ENCOUNTER → 2022-03-12 | Outpatient (CLI) | payer MEDICARE, SELFPAY ==
--- NOTE | 2022-03-12 17:32 | RAD_ITS ---
INDICATION: PAIN EXAMINATION/TECHNIQUE: X-RAY - XR Spine Thoracic 3 Views: 4 image frontal and lateral thoracic spine COMPARISON: March 12, 2022 FINDINGS: VERTEBRAE: 12 rib-bearing thoracic type vertebra with mild chronic multilevel anterior vertebral height loss in the mid thoracic spine. No gross cortical disruption. Dextrocurvature of the midthoracic spine with larger levocurvature of the thoracolumbar spine. No spondylolisthesis. Mildly exaggerated thoracic kyphosis. DISCS: Mild mid to lower thoracic disc height loss. INCLUDED CHEST/ABDOMEN: Aortic atherosclerosis. No airspace consolidation within the [id number]. IVC filter noted with cephalad tip at L2 superior endplate. Multiple abdominal surgical clips and suture. Linear lead projects over the upper abdomen and lower mediastinum. RAD/Thoracic Spine 3 Views IMPRESSION: Thoracolumbar scoliosis with likely chronic anterior compression deformities in the thoracic spine with progression from July 16, 2018. CT could further evaluate for superimposed acute fracture component as clinically indicated. Electronically Signed: Severino Krueger MD at 7:43 EDT ,
--- NOTE | 2022-03-12 17:33 | RAD_ITS ---
STUDY: X-RAY - LUMBAR SPINE REASON FOR EXAM: Female, 66 years old. PAIN TECHNIQUE: 2 view(s) of the lumbar spine were obtained. COMPARISON: None FINDINGS: Normal lumbar lordosis. There is a levoscoliosis of the lumbar spine. There is a normal alignment of the vertebrae. Normal vertebral bodies and endplates. There is multi-level degenerative disc disease with multi-level disc space narrowing. There is no demonstrated fracture. IVC filter noted. RAD/Lumbar Spine 2 or 3 Views IMPRESSION: Degenerative changes of the spine, as detailed above. Levoscoliosis Electronically Signed: Mitch Turner MD at 11:24 EDT ,
== END | disposition home or self-care (01) ==
PROVIDERS: PCP Internal Medicine; Visit Provider Anesthesiology Pain Medicine
DX: M41.85 Other forms of scoliosis, thoracolumbar region (principal); I70.0 Atherosclerosis of aorta; M54.6 Pain in thoracic spine; M47.816 Spondylosis without myelopathy or radiculopathy, lumbar region
CPT/HCPCS: 72072; 72100

== ENCOUNTER → 2022-05-02 | Outpatient (CLI) | payer MEDICARE, SELFPAY ==
--- NOTE | 2022-05-07 05:56 | PFTCOMP ---
COMPLETE PULMONARY FUNCTION TEST INTERPRETATION Brief HPI: Patient is a 66-year-old female, currently under the care of Dr. Robles, who presents to [facility] for complete pulmonary function tests secondary to diagnosis of abnormal PFT. Respiratory therapist reports good effort and reproducible results. Interpretation: Forced expiration spirometry shows no large airways obstructive ventilatory defect with an FEV1 of 73% predicted. There is no significant bronchodilator response by strict ATS criteria. Spirograms are of good quality and plateau slowly, indicating slowly emptying areas of the lungs. The respiratory flow volume loop shows decreased expiratory flow rates at high lung volumes consistent with small airways obstruction. Lung volumes by body plethysmography show a decreased total lung capacity at 3.98 L, 81% predicted. All other lung volumes are reduced symmetrically. Diffusion capacity by carbon monoxide is normal at 101% predicted. The airway resistance is normal. No previous pulmonary function tests were available for review. Impression: Mild restrictive ventilatory defect with some stigmata of small airways disease
== END | disposition home or self-care (01) ==
LOC: PSN 10:51
PROVIDERS: PCP Internal Medicine; Referring Provider Internal Medicine; Visit Provider Internal Medicine
DX: R94.2 Abnormal results of pulmonary function studies (principal)
CPT/HCPCS: 94060; 94726; 94729

== ENCOUNTER → 2022-05-11 | Outpatient (CLI) | payer MEDICARE, SELFPAY ==
--- NOTE | 2022-05-11 14:15 | BI_ITS ---
MAMMOGRAPHY - BILATERAL SCREENING REASON FOR EXAM: Female, 66 years old. Routine annual screening examination. PERTINENT HISTORY: Sisters with breast cancer. Bilateral breast implants. TECHNIQUE: Digital bilateral breast maura (3D mammographic acquisition) in the CC and MLO projections. 2-D mediolateral oblique (MLO) and craniocaudad (CC) views of both breasts were obtained. CAD: Full Field Digital Mammography with Computer Added Detection was performed. COMPARISON: Comparison is made with prior study dated 12/05/2020 and 09/09/2019. FINDINGS: Breast Composition: The breasts are heterogeneously dense, which may obscure small masses. There are no dominant masses or suspicious calcifications. Stable bilateral breast implants. No other significant abnormalities are identified. There has been no significant change since the prior study. BI/SCRN MAMM (CAD)W/MAURA BILAT IMPRESSION: Stable bilateral screening mammogram. Yearly follow-up mammogram recommended. (A) ASSESSMENT CATEGORY: BIRADS Category 2: Benign. A letter regarding these results will be sent to the patient by the facility within 30 days. Approximately 10% of breast cancers are not detected by mammography. A normal mammogram should not delay biopsy of a clinically suspicious abnormality. [id number] Electronically Signed: Sj Schaefer MD at 15:16 EDT ,
== END | disposition home or self-care (01) ==
PROVIDERS: PCP Internal Medicine; Visit Provider Internal Medicine
DX: Z12.31 Encounter for screening mammogram for malignant neoplasm of breast (principal); Z98.82 Breast implant status; Z80.3 Family history of malignant neoplasm of breast
CPT/HCPCS: 77063; 77067

== ENCOUNTER → 2022-05-11 | Outpatient (CLI) | payer MEDICARE, SELFPAY ==
--- NOTE | 2022-05-11 12:42 | CDU_ITS ---
Reason For Study: Stenosis Rt. Velocities/BP Lt. Velocities/BP Prox CCA 64.5/12.6 cm/sec. Prox CCA 82.8/10.2 cm/sec. Mid CCA 60.7/17.3 cm/sec. Mid CCA 66.3/12.4 cm/sec. Dist CCA 61.7/16.3 cm/sec. Dist CCA 65.2/17.9 cm/sec. Prox ICA 56/16.3 cm/sec. Prox ICA 42.1/13.5 cm/sec. Mid ICA 112/35.3 cm/sec. Mid ICA 72.9/25.6 cm/sec. Dist ICA 110.1/33.4 cm/sec. Dist ICA 100.3/33.3 cm/sec. Rt. ICA/CCA = 1.82. Lt. ICA/CCA = 1.51. Prox ECA 70.2/7.8 cm/sec. Prox ECA 74/8 cm/sec. Rt. Vert. 75.1/21.2 cm/sec. Lt. Vert. 54.1/7.8 cm/sec. Right Extracranial There is intimal thickening but no significant atherosclerotic plaque noted in the right common carotid artery. There is intimal thickening but no significant atherosclerotic plaque noted in the right internal carotid artery. The right internal carotid artery is very tortuous. There is heterogeneous, irregular atherosclerotic plaque noted in the right external carotid artery. Antegrade flow is noted in the right vertebral artery. Left Extracranial There is heterogeneous, irregular atherosclerotic plaque noted in the left common carotid artery. There is intimal thickening but no significant atherosclerotic plaque noted in the left internal carotid artery. There is heterogeneous, irregular atherosclerotic plaque noted in the left external carotid artery. Antegrade flow is noted in the left vertebral artery. Procedure Carotid Duplex [id number]. This is a Carotid Duplex examination using B-mode, color flow and specral Doppler. Exam performed in department. VL/Carotid Duplex Ultrasound Interpretation Summary Intimal thickening at the proximal right internal carotid artery with less than 50% stenosis Less than 50% stenosis right external carotid artery Intimal thickening at the proximal left internal carotid artery with less than 50% stenosis Less than 50% stenosis left external carotid artery Patent and antegrade vertebral arteries bilaterally Ordering Physician: Monika Robles Referring Physician: Monika Robles Performed By: Jenna Tam RVT
== END | disposition home or self-care (01) ==
LOC: CVS 12:42
PROVIDERS: PCP Internal Medicine; Referring Provider Internal Medicine; Visit Provider Internal Medicine
DX: I65.23 Occlusion and stenosis of bilateral carotid arteries (principal)
CPT/HCPCS: 93880

== ENCOUNTER → 2022-07-17 | Outpatient (CLI) | payer MEDICARE, SELFPAY ==
[2022-07-17 15:04] LABS: Absolute Lymphocyte Count 1.81 X10^3/uL (0.83-4.51); Absolute Neutrophil Count 1.9 X10^3/uL (2.0-7.7); Basophil# 0.06 X10^3/uL; Basophil% 1.4 % (0-1); Eosinophil# 0.15 X10^3/uL; Eosinophils% 3.5 % (0-5); Hematocrit 39.3 % (37-47); Hemoglobin 12.3 g/dL (12.0-15.0); Lymphocyte # 1.81 X10^3/ul (0.83-4.51); Lymphocyte % 42.2 % (19-41); Mean Corp Hgb Conc 31.3 g/dL (32-36); Mean Corpuscular Hgb 29.1 pg (27.0-32.0); Mean Corpuscular Volume 92.9 fL (81-99); Mean Platelet Vol. 9.4 fl (6.2-12.0); Monocyte# 0.37 X10^3/uL; Monocyte% 8.6 % (0-10); NRBC Flagged by Analyzer 0 % (0-5); Neutrophil # 1.89 X10^3/uL (2.7-7.7); Neutrophil % 44.1 % (47-70); Platelet Count 223 K/mm3 (150-450); RBC Distribution Width CV 13.3 % (11.6-14.6); RBC Distribution Width SD 45.2 fl (35.1-43.9); Red Blood Count 4.23 M/mm3 (4.2-5.4); White Blood Count 4.3 K/mm3 (4.4-11.0)
[2022-07-17 15:32] LABS: ALB/GLOB Ratio 1.2 RATIO (0.9-2.4); AST(SGOT) 37 U/L (15-37); Alanine Aminotransfer ALT/SGPT 40 U/L (13-56); Albumin, Serum 3.6 g/dL (3.2-5.0); Alkaline Phosphatase 111 U/L (45-117); Anion Gap 6 (5-15); BUN 23 mg/dL (7-18); BUN/Creat Ratio 26.7 RATIO (10-20); Calcium,Total 8.1 mg/dL (8.5-10.1); Chloride 106 mmol/L (98-107); Cholesterol 185 mg/dL (200); Creatinine, Serum 0.86 mg/dL (0.55-1.02); EST Glomerular Filtration Rate 70 mL/min (>60); Est Glom Filt Rate - Afr Amer 84 mL/min (>60); Ferritin 56 ng/mL (8-252); Globulin 2.9 g/dL (2.2-4.2); Glucose 71 mg/dL (74-106); High Density Lipoprotein 113 mg/dL; Iron 78 ug/dL (50-170); Protein, Total 6.5 g/dL (6.4-8.2); Sodium Level 140 mmol/L (136-145); Thyroid Stim Hormone (TSH) 0.65 uIU/mL (0.358-3.74); Triglycerides 71 mg/dL; Very Low Density Lipoprotein 14 mg/dL (5-40)
[2022-07-17 15:41] LABS: Vitamin B12 > 2000 pg/mL (211-911); Vitamin D,25 Hydroxy 16.8 ng/mL
== END | disposition home or self-care (01) ==
PROVIDERS: PCP Internal Medicine; Referring Provider Internal Medicine; Visit Provider Internal Medicine
DX: D51.8 Other vitamin B12 deficiency anemias (principal); E55.9 Vitamin D deficiency, unspecified; I65.29 Occlusion and stenosis of unspecified carotid artery; E03.9 Hypothyroidism, unspecified; D50.8 Other iron deficiency anemias; G31.84 Mild cognitive impairment of uncertain or unknown etiology
CPT/HCPCS: 36415; 80053; 80061; 82306; 82607; 82728; 83540; 84443; 85025

== ENCOUNTER → 2022-09-07 | Outpatient (CLI) | payer MEDICARE, SELFPAY ==
[2022-09-07 10:43] VITALS: BP 135/56; PULSE 94; RESP 16; TEMP 36.3; O2SAT 95; BMI 22.3
[2022-09-07] MEDS: 0.9% NaCl Peripheral Flush Adult/Peds IV (10:55)
[2022-09-07] MEDS: Zoledronic Acid 5 MG 100 ML 300 MG IV (10:55)
[2022-09-07 11:22] VITALS: BP 127/59; PULSE 87; RESP 16; TEMP 35.9; O2SAT 95
== END | disposition home or self-care (01) ==
PROVIDERS: PCP Internal Medicine; Referring Provider Internal Medicine; Visit Provider Internal Medicine
DX: M81.0 Age-related osteoporosis without current pathological fracture (principal)
CPT/HCPCS: 96365; A4216; J3489

== ENCOUNTER → 2022-09-28 | Outpatient (CLI) | payer MEDICARE, SELFPAY ==
[2022-09-28 17:45] LABS: Absolute Lymphocyte Count 1.56 X10^3/uL (0.83-4.51); Absolute Neutrophil Count 2.7 X10^3/uL (2.0-7.7); Basophil# 0.06 X10^3/uL; Basophil% 1.2 % (0-1); Eosinophil# 0.14 X10^3/uL; Eosinophils% 2.9 % (0-5); Hematocrit 41.3 % (37-47); Hemoglobin 13.3 g/dL (12.0-15.0); Lymphocyte # 1.56 X10^3/ul (0.83-4.51); Lymphocyte % 31.8 % (19-41); Mean Corp Hgb Conc 32.2 g/dL (32-36); Mean Corpuscular Hgb 29.3 pg (27.0-32.0); Mean Platelet Vol. 8.9 fl (6.2-12.0); Monocyte# 0.48 X10^3/uL; Monocyte% 9.8 % (0-10); NRBC Flagged by Analyzer 0 % (0-5); Neutrophil # 2.65 X10^3/uL (2.7-7.7); Neutrophil % 53.9 % (47-70); Platelet Count 246 K/mm3 (150-450); RBC Distribution Width CV 12.9 % (11.6-14.6); RBC Distribution Width SD 43.2 fl (35.1-43.9); Red Blood Count 4.54 M/mm3 (4.2-5.4); White Blood Count 4.9 K/mm3 (4.4-11.0)
[2022-09-28 18:03] LABS: Erythrocyte Sedimentation Rate 11 mm/hr (0-30)
[2022-09-28 18:56] LABS: ALB/GLOB Ratio 1.1 RATIO (0.9-2.4); AST(SGOT) 18 U/L (15-37); Alanine Aminotransfer ALT/SGPT 15 U/L (13-56); Albumin, Serum 3.7 g/dL (3.2-5.0); Alkaline Phosphatase 101 U/L (45-117); Anion Gap 8 (5-15); BUN 23 mg/dL (7-18); BUN/Creat Ratio 25.2 RATIO (10-20); CRP < 2.90 mg/L (0.0-3.0); Calcium,Total 8.3 mg/dL (8.5-10.1); Chloride 106 mmol/L (98-107); Creatinine, Serum 0.91 mg/dL (0.55-1.02); EST Glomerular Filtration Rate 65 mL/min (>60); Est Glom Filt Rate - Afr Amer 79 mL/min (>60); Globulin 3.5 g/dL (2.2-4.2); Glucose 70 mg/dL (74-106); Potassium 3.7 mmol/L (3.5-5.1); Protein, Total 7.2 g/dL (6.4-8.2); Sodium Level 140 mmol/L (136-145)
[2022-09-28 21:48] LABS: Hepatitis B Surface Antibody Non-Reactive; Hepatitis B Surface Antigen Non-Reactive (Nonreactive); Hepatitis C Antibody Non-Reactive (Nonreactive)
[2022-10-01 09:07] LABS: QNTFERON TB Mitogen Value > 10.00 IU/mL (.); QNTFERON TB Nil Value 0.09 IU/mL (.); QNTFERON TB1+ Ag Value 0.08 IU/mL (.); QNTFERON TB2+ Ag Value 0.06 IU/mL (.)
[2022-10-01 09:53] LABS: QNTIFERON TB Positive Criteria Negative (Negative)
== END | disposition home or self-care (01) ==
LOC: MTLAB 16:25
PROVIDERS: PCP Internal Medicine; Referring Provider Internal Medicine Rheumatology; Visit Provider Internal Medicine Rheumatology
DX: L40.59 Other psoriatic arthropathy (principal); Z79.899 Other long term (current) drug therapy
CPT/HCPCS: 36415; 80053; 85025; 85652; 86140; 86480; 86706; 86803; 87340

== ENCOUNTER → 2022-12-19 | Outpatient (CLI) | payer MEDICARE, SELFPAY ==
[2022-12-19 18:16] LABS: Absolute Lymphocyte Count 2.43 X10^3/uL (0.83-4.51); Absolute Neutrophil Count 2.4 X10^3/uL (2.0-7.7); Basophil# 0.08 X10^3/uL; Basophil% 1.4 % (0-1); Eosinophil# 0.16 X10^3/uL; Eosinophils% 2.8 % (0-5); Hematocrit 41.8 % (37-47); Lymphocyte # 2.43 X10^3/ul (0.83-4.51); Lymphocyte % 42.4 % (19-41); Mean Corp Hgb Conc 31.1 g/dL (32-36); Mean Corpuscular Hgb 29.8 pg (27.0-32.0); Mean Corpuscular Volume 95.9 fL (81-99); Mean Platelet Vol. 9.2 fl (6.2-12.0); Monocyte# 0.66 X10^3/uL; Monocyte% 11.5 % (0-10); NRBC Flagged by Analyzer 0 % (0-5); Neutrophil # 2.37 X10^3/uL (2.7-7.7); Neutrophil % 41.4 % (47-70); Platelet Count 242 K/mm3 (150-450); RBC Distribution Width CV 14.2 % (11.6-14.6); RBC Distribution Width SD 49.8 fl (35.1-43.9); Red Blood Count 4.36 M/mm3 (4.2-5.4); White Blood Count 5.7 K/mm3 (4.4-11.0)
[2022-12-19 18:45] LABS: ALB/GLOB Ratio 1.1 RATIO (0.9-2.4); AST(SGOT) 20 U/L (15-37); Alanine Aminotransfer ALT/SGPT 28 U/L (13-56); Albumin, Serum 3.5 g/dL (3.2-5.0); Alkaline Phosphatase 96 U/L (45-117); Anion Gap 6 (5-15); BUN 25 mg/dL (7-18); BUN/Creat Ratio 25.5 RATIO (10-20); Calcium,Total 8.3 mg/dL (8.5-10.1); Chloride 109 mmol/L (98-107); Creatinine, Serum 0.98 mg/dL (0.55-1.02); EST Glomerular Filtration Rate 60 mL/min (>60); Est Glom Filt Rate - Afr Amer 72 mL/min (>60); Globulin 3.3 g/dL (2.2-4.2); Glucose 69 mg/dL (74-106); Potassium 3.9 mmol/L (3.5-5.1); Protein, Total 6.8 g/dL (6.4-8.2); Sodium Level 140 mmol/L (136-145)
== END | disposition home or self-care (01) ==
PROVIDERS: PCP Internal Medicine; Referring Provider Internal Medicine Rheumatology; Visit Provider Internal Medicine Rheumatology
DX: L40.59 Other psoriatic arthropathy (principal); M79.7 Fibromyalgia; Z79.899 Other long term (current) drug therapy
CPT/HCPCS: 36415; 80053; 85025

== ENCOUNTER → 2023-02-27 | Outpatient (CLI) | payer MEDICARE, SELFPAY ==
[2023-02-27 15:33] LABS: Absolute Lymphocyte Count 2.12 X10^3/uL (0.83-4.51); Absolute Neutrophil Count 1.9 X10^3/uL (2.0-7.7); Basophil# 0.05 X10^3/uL; Basophil% 1.1 % (0-1); Eosinophil# 0.11 X10^3/uL; Eosinophils% 2.5 % (0-5); Hematocrit 40.1 % (37-47); Hemoglobin 12.7 g/dL (12.0-15.0); Lymphocyte # 2.12 X10^3/ul (0.83-4.51); Lymphocyte % 47.3 % (19-41); Mean Corp Hgb Conc 31.7 g/dL (32-36); Mean Corpuscular Volume 97.8 fL (81-99); Mean Platelet Vol. 9.4 fl (6.2-12.0); Monocyte# 0.34 X10^3/uL; Monocyte% 7.6 % (0-10); NRBC Flagged by Analyzer 0 % (0-5); Neutrophil # 1.85 X10^3/uL (2.7-7.7); Neutrophil % 41.3 % (47-70); Platelet Count 213 K/mm3 (150-450); RBC Distribution Width CV 13.7 % (11.6-14.6); RBC Distribution Width SD 48.6 fl (35.1-43.9); White Blood Count 4.5 K/mm3 (4.4-11.0)
[2023-02-27 16:13] LABS: ALB/GLOB Ratio 1.1 RATIO (0.9-2.4); AST(SGOT) 14 U/L (15-37); Alanine Aminotransfer ALT/SGPT 21 U/L (13-56); Albumin, Serum 3.4 g/dL (3.2-5.0); Alkaline Phosphatase 85 U/L (45-117); Anion Gap 5 (5-15); BUN 16 mg/dL (7-18); Calcium,Total 8.5 mg/dL (8.5-10.1); Chloride 111 mmol/L (98-107); Creatinine, Serum 1.07 mg/dL (0.55-1.02); EST Glomerular Filtration Rate 54 mL/min (>60); Est Glom Filt Rate - Afr Amer 65 mL/min (>60); Globulin 3.1 g/dL (2.2-4.2); Glucose 135 mg/dL (74-106); Potassium 3.4 mmol/L (3.5-5.1); Protein, Total 6.5 g/dL (6.4-8.2); Sodium Level 141 mmol/L (136-145)
== END | disposition home or self-care (01) ==
LOC: MTLAB 12:32
PROVIDERS: PCP Internal Medicine; Referring Provider Internal Medicine Rheumatology; Visit Provider Internal Medicine Rheumatology
DX: L40.59 Other psoriatic arthropathy (principal); Z79.899 Other long term (current) drug therapy
CPT/HCPCS: 36415; 80053; 85025

== ENCOUNTER → 2023-05-14 | Outpatient (CLI) | payer MEDICARE, SELFPAY ==
[2023-05-14 15:20] LABS: Absolute Lymphocyte Count 2.23 X10^3/uL (0.83-4.51); Absolute Neutrophil Count 1.9 X10^3/uL (2.0-7.7); Basophil# 0.05 X10^3/uL; Basophil% 1.1 % (0-1); Eosinophil# 0.18 X10^3/uL; Eosinophils% 3.8 % (0-5); Hematocrit 39.2 % (37-47); Hemoglobin 12.1 g/dL (12.0-15.0); Lymphocyte # 2.23 X10^3/ul (0.83-4.51); Lymphocyte % 47.1 % (19-41); Mean Corp Hgb Conc 30.9 g/dL (32-36); Mean Corpuscular Hgb 30.9 pg (27.0-32.0); Monocyte# 0.34 X10^3/uL; Monocyte% 7.2 % (0-10); NRBC Flagged by Analyzer 0 % (0-5); Neutrophil # 1.91 X10^3/uL (2.7-7.7); Neutrophil % 40.4 % (47-70); Platelet Count 198 K/mm3 (150-450); RBC Distribution Width CV 14.4 % (11.6-14.6); RBC Distribution Width SD 52.5 fl (35.1-43.9); Red Blood Count 3.92 M/mm3 (4.2-5.4); White Blood Count 4.7 K/mm3 (4.4-11.0)
[2023-05-14 16:14] LABS: Vitamin B12 > 2000 pg/mL (211-911); Vitamin D,25 Hydroxy 13.7 ng/mL
[2023-05-14 17:00] LABS: AST(SGOT) 15 U/L (15-37); Alanine Aminotransfer ALT/SGPT 18 U/L (13-56); Alkaline Phosphatase 82 U/L (45-117); Anion Gap 5 (5-15); BUN 18 mg/dL (7-18); BUN/Creat Ratio 20.7 RATIO (10-20); Calcium,Total 7.8 mg/dL (8.5-10.1); Chloride 108 mmol/L (98-107); Creatinine, Serum 0.87 mg/dL (0.55-1.02); EST Glomerular Filtration Rate 69 mL/min (>60); Est Glom Filt Rate - Afr Amer 83 mL/min (>60); Ferritin 104 ng/mL (8-252); Globulin 2.9 g/dL (2.2-4.2); Glucose 155 mg/dL (74-106); Iron 115 ug/dL (50-170); Iron Binding Capacity,Total 235 ug/dL (250-450); PERCENT IRON SATURATION 48.9 % (15.0-55.0); Potassium 3.8 mmol/L (3.5-5.1); Protein, Total 5.9 g/dL (6.4-8.2); Sodium Level 140 mmol/L (136-145); Thyroid Stim Hormone (TSH) 0.39 uIU/mL (0.358-3.74)
== END | disposition home or self-care (01) ==
LOC: LAB 14:53
PROVIDERS: PCP Internal Medicine; Referring Provider Internal Medicine; Visit Provider Internal Medicine
DX: E03.9 Hypothyroidism, unspecified (principal); M06.80 Other specified rheumatoid arthritis, unspecified site; D51.8 Other vitamin B12 deficiency anemias; E55.9 Vitamin D deficiency, unspecified; D50.8 Other iron deficiency anemias
CPT/HCPCS: 36415; 80053; 82306; 82607; 82728; 82746; 83540; 83550; 84443; 85025

== ENCOUNTER 2023-05-29 13:32 | Emergency (ER) | payer MEDICARE, SELFPAY ==
[2023-05-29 13:33] VITALS: BP 147/82; PULSE 114; RESP 16; TEMP 36.8; O2SAT 99; BMI 22.1
--- NOTE | 2023-05-29 13:47 | CT_ITS ---
STUDY: CT BRAIN WITHOUT CONTRAST REASON FOR EXAM: Female, 67 years old. HEAD INJURY RADIATION DOSAGE (If Supplied By Facility): CTDIvol = ( 44.99 ) mGy, DLP = ( 863.60 ) mGycm TECHNIQUE: Transaxial CT imaging of the brain was performed without administration of intravenous contrast material. Individualized dose optimization techniques were used for this CT. COMPARISON: Comparison is made with prior study dated May 18, 2018. FINDINGS: Normal soft tissue structures. There is hyperostosis frontalis internus. There is mild cerebral atrophy with widening of the extra-axial spaces and ventricular dilatation. Normal white matter tracts of the cerebral hemispheres. There are small punctate calcifications of the basal ganglia which are seen in the aging brain as a normal variant. Normal brainstem. Normal cerebellum. There is no intracranial hemorrhage. There are no findings of an acute ischemic infarction. Normal visualized paranasal sinuses. CT/Brain/Head without Contrast IMPRESSION: Chronic involutional changes of the brain. Electronically Signed: Sj Schaefer MD at 14:27 EDT ,
--- NOTE | 2023-05-29 14:53 | ED.RN ---
assumed care at this time
--- NOTE | 2023-05-29 14:55 | EDS_ITS ---
HPI History of Present Illness Chief Complaint: Head Injury Detail of Chief Complaint: Head injury due to fall out of bed Informant: patient and spouse/S.O. Onset/Context/Timing Onset: Today and Hours Mechanism/Context: Blunt Injury and Fall Location of pain/injuries: - (Right temporoparietal and orbital region) Quality of Pain: Dull and Aching Current Severity: Mild Maximum Severity: Moderate Worsened by: Palpation Relieved by: Nothing Associated Symptoms Associated Symptoms: Negative for Parasthesias, Weakness, Loss of function, Inability to ambulate, Loss of consciousness or Amnesia Narrative Narrative: Is a 67-year-old woman who presents after fall out of bed. She struck the nightstand. She has significant ecchymosis right periorbital region. She states last evening she saw green halos around light. She does report head pain. She denies nausea or vomiting. She denies loss of conscious. She is not amnestic. She was not dazed. She denies neck pain. She is on no antithrombotic or anticoagulant. She denies paresthesia, anesthesia or motor weakness presently or after the fall. She denies cardiac or respiratory symptoms. She also stubbed her left third toe. It is ecchymotic on the plantar surface. She states she presented because her vision last needed when this occurred was blurred and she was seeing green halos. The blurred vision has resolved. The green halos have resolved. Patient states she did take oxycodone, which was prescribed by Dr. Navarro for chronic pain. The medicine did help but did not alleviate the pain. Tetanus Immunization: 5-10 years Prior similar symptoms: No Recent Illness/Hospitalization: No [facility] Medical History (Updated 05/29/23 @ 15:[address] 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 Home Medications amitriptyline 100 mg tablet 100 mg PO QHS 04/27/14 [History Last Taken Unknown] calcium carbonate 600 mg calcium (1,500 mg) tablet 600 mg PO BIDCM 04/27/14 [History Last Taken Unknown] multivitamin with folic acid 400 mcg tablet 1 tab PO DAILY 04/27/14 [History Last Taken Unknown] omeprazole 20 mg capsule,delayed release 20 mg PO BID 04/27/14 [History Last Taken 06/14/15 10:00] ropinirole 0.5 mg tablet 1 mg PO QHS PRN restless leg 04/27/14 [History Last Taken Unknown] acetaminophen 500 mg tablet 500 mg PO Q6 PRN Pain 06/18/15 [History Last Taken Unknown] adalimumab 10 mg/0.2 mL subcutaneous syringe kit (Humira) See Rx Instructions subcut .COMPLEX 11/19/19 [History Last Taken Unknown] biotin 5 mg capsule 5 mg PO BID 11/19/19 [History Last Taken Unknown] cyanocobalamin (vitamin B-12) 2,500 mcg tablet 2,500 mcg PO DAILY 11/19/19 [History Last Taken Unknown] eszopiclone 3 mg tablet (Lunesta) PO QHS 11/19/19 [History Last Taken Unknown] galcanezumab-gnlm 120 mg/mL subcutaneous syringe (Emgality) 120 mg subcut QMONTH 11/19/19 [History Last Taken Unknown] hydromorphone 4 mg tablet (Dilaudid) 4 mg PO Q4H PRN 11/19/19 [History Last Taken Unknown] iron-vit C-vit A44-zdmil acid 100 mg-250 mg-25 mcg-1 mg tablet (Iron) 1 tab PO DAILY 11/19/19 [History Last Taken Unknown] ketorolac 0.5 % eye drops in a dropperette 1 drp ophthalmic (eye) Q8H 11/19/19 [History Last Taken Unknown] levothyroxine 137 mcg capsule 137 mcg PO DAILY 11/19/19 [History Last Taken Unknown] loratadine 10 mg capsule (Claritin Liqui-Gel) 10 mg PO DAILY 11/19/19 [History Last Taken Unknown] lubiprostone 24 mcg capsule (Amitiza) 24 mcg PO BID 11/19/19 [History Last Taken Unknown] milnacipran 25 mg tablet (Savella) 25 mg PO BID 11/19/19 [History Last Taken Unknown] mirabegron 50 mg tablet,extended release 24 hr (Myrbetriq) 50 mg PO Q24H 11/19/19 [History Last Taken Unknown] moxifloxacin 0.5 % eye drops 1 drp ophthalmic (eye) TID 11/19/19 [History Last Taken Unknown] potassium chloride 20 mEq tablet,extended release 20 meq PO BID 11/19/19 [History Last Taken Unknown] tizanidine 4 mg capsule 4 mg PO QHS 11/19/19 [History Last Taken Unknown] topiramate 100 mg tablet 100 mg PO DAILY 11/19/19 [History Last Taken Unknown] venlafaxine 150 mg capsule,extended release 24 hr (Effexor XR) 150 mg PO BID 11/19/19 [History Last Taken Unknown] zoledronic acid 5 mg/100 mL in mannitol 5 %-water intravenous piggybck (Reclast) See Rx Instructions .Route .yearly 11/19/19 [History Last Taken Unknown] fluconazole 150 mg tablet See Rx Instructions .Route .COMPLEX #3 tabs 01/12/20 [Rx Last Taken Unknown] Allergy/AdvReac Type Severity Reaction Status Date / Time doxycycline Allergy Severe Anaphylaxis Verified 05/29/23 13:36 benzoyl peroxide Allergy Mild NEEDS Verified 05/29/23 13:36 FOLLOW-UP buprenorphine [From Butrans] Allergy Mild Unknown Verified 05/29/23 13:36 famciclovir [From Famvir] Allergy Mild unknown Verified 05/29/23 13:36 fentanyl [From Duragesic] Allergy Mild unkown Verified 05/29/23 13:36 pregabalin [From Lyrica] Allergy Mild Other Verified 05/29/23 13:36 tetracycline Allergy Mild unknown Verified 05/29/23 13:36 zonisamide [From Zonegran] Allergy Mild Unknown Verified 05/29/23 13:36 latex Allergy Rash Verified 05/29/23 13:36 Penicillins [PCN] Allergy Anaphylaxis Verified 05/29/23 13:36 morphine AdvReac Intermediate Other Verified 05/29/23 13:36 levofloxacin [From Levaquin] AdvReac Mild Itching Verified 05/29/23 13:36 Family History Mother Ovarian cancer Father Black lung Diabetes CAD (coronary artery disease) Lymphoma Sister Myocardial infarction Multiple sclerosis Surgical History H/O arthroscopy H/O bariatric surgery H/O bilateral salpingo-oophorectomy H/O: hysterectomy History of arthroscopy of right shoulder History of gastric bypass keft elbow bone chips removed S/P abdominoplasty S/P appendectomy S/P cholecystectomy S/P rotator cuff repair S/P total knee arthroplasty Social History Smoking Status: Never smoker alcohol intake: never substance use type: does not use ROS ROS ED Constitutional Constitutional ED: Denies chills, fever(s) or subjective Eyes Eyes: Reports blurry vision right (Initially has since resolved.) and other Details: Per HPI narrative. ; Denies change in vision ENT ENT ED: Denies ear pain, rhinorrhea or sore throat Cardiovascular Cardiovascular: Denies chest pain or palpitations Respiratory/Chest Respiratory/Chest: Denies cough, dyspnea or dyspnea on exertion Gastrointestinal Gastrointestinal: Denies abdominal pain, nausea or vomiting Genitourinary Genitourinary ED: Denies dysuria or hematuria Musculoskeletal Musculoskeletal: Denies arthralgias, back pain, myalgias or neck pain Integumentary Reports other Details: Periorbital contusion. ; Denies rash Neurologic Neurologic: Reports headache(s); Denies paresthesias or weakness Endocrine Endocrinology: Denies cold intolerance or heat intolerance Hematologic/Lymphatic Hematologic/Lymphatic: Denies easy bleeding or easy bruising EXAM Physical Exam Const Vital Signs: 05/29/23 13:33 Temperature 98.2 F Temperature Source Temporal Pulse Rate 114 H Respiratory Rate 16 Blood Pressure 147/82 H Blood Pressure Mean 103 Pulse Ox 99 Oxygen Delivery Method Room Air Positive well nourished and well developed General Appearance ED: well developed and NAD HEENT Denies TM's clear HEENT Narrative: There is negative raccoon or michel sign. There is no CSF otorrhea or rhinorrhea. There is bruising noted right periorbital and right temporal region. trauma and tenderness Nose: Negative for septum abnormal Tympanic Membrane ED: Negative for TM's clear Eyes PERRL and EOMs intact bilaterally General Eye ED: Yes other Other Details: No subconjunctival hemorrhage. There is no entrapment. There is no hyperesthesia of the infraorbital nerve. There is no step-off with palpation of the infraorbital rim. Neck full ROM General: Negative for tenderness Chest Wall inspection of chest normal and palpation of chest normal Resp normal respiratory effort and clear to auscultation bilaterally Cardio regular rhythm, S1 normal heart sound, S2 normal heart sound and no murmurs Rate: regular rate Back/Spine normal to inspection and no thoracic nor lumbar tenderness Extremity Negative for normal to inspection Extremity Narrative: Has bruising to left third toe. There is no subungual hematoma. Sensation is normal. Capillary refill is normal. There is no tenderness on the dorsal surface. Neuro oriented x3, CN's II-XII intact bilaterally, moves all extremities, no focal motor deficits and no sensory deficits noted Chris Coma Scale: document GCS findings Spontaneous Obeys Commands Oriented 15 Sensorium / Orientation: alert Plantar Reflex: Downgoing: bilateral Psych mental status grossly normal and thought process normal Skin no rashes or lesions noted, No skin turgor normal and no jaundice Skin Narrative: As previously mentioned contusion right side of face. MDM MDM MDM Narrative Medical decision making narrative: CT was entered to evaluate for intracranial bleed i.e. subdural, epidural, contusion traumatic subarachnoid hemorrhage. Also to evaluate for any obvious right orbital fracture. Clinically she does not and reason although details were not obtained. Radiography Diagnostic Testing: Clinical Impression(s) from Imaging Studies Brain CT 05/29/23 13:47 IMPRESSION: Chronic involutional changes of the brain. Electronically Signed: Sj Schaefer MD at 14:27 EDT , Was reviewed by me and there is no evidence of skull fracture, subdural hematoma, epidural hematoma, intraparenchymal bleed or traumatic subarachnoid hemorrhage. Furthermore there is no subcutaneous periorbital area noted. There is no obvious fracture. There is no fluid in the right maxillary sinus. Discharge Plan Triage Chief Complaint: Head Injury ED Provider: Pawel Harper Dx/Rx/DC Orders Clinical Impression: CHI (closed head injury), Chronic pain disorder, Osteoporosis, Fibromyalgia, Injury due to fall, Periorbital contusion of right eye Instructions: ED Eye Contusion, ED Head Injury (Adult) Prescriptions: No Action levothyroxine 137 mcg capsule 137 mcg capsule 137 mcg PO DAILY cyanocobalamin (vitamin B-12) 2,500 mcg tablet 2,500 mcg PO DAILY venlafaxine [Effexor XR] 150 mg capsule,extended release 24hr 150 mg PO BID biotin 5 mg capsule 5 mg PO BID Myrbetriq 50 mg tablet extended release 24 hr 50 mg PO Q24H zoledronic jibk-ojzenizv-gaoss [Reclast] 5 mg/100 mL piggyback See Rx Instructions .ROUTE .yearly Rx Instructions: .yearly; loratadine [Claritin Liqui-Gel] 10 mg capsule 10 mg PO DAILY Iron 100 Plus 140-502-82-1 ss-tq-rwb-mg tablet 1 tab PO DAILY potassium chloride 20 mEq tablet extended release 20 meq PO BID eszopiclone [Lunesta] 3 mg tablet PO QHS Savella 25 mg tablet 25 mg PO BID Emgality Syringe 120 mg/mL syringe 120 mg SC QMONTH Amitiza 24 mcg capsule 24 mcg PO BID ketorolac 0.5 % eye drops in a dropperette 0.5 % dropperette 1 drp OPHTHALMIC Q8H Rx Instructions: begin 24 hours prior to surgery moxifloxacin 0.5 % drops 1 drp OPHTHALMIC TID Humira 10 mg/0.2 mL syringe kit See Rx Instructions SC .COMPLEX Rx Instructions: inject one - 40 mg/0.8 mL syringe every 2 weeks subcut tizanidine 4 mg capsule 4 mg PO QHS hydromorphone [Dilaudid] 4 mg tablet 4 mg PO Q4H PRN calcium carbonate 600 MG tablet 600 mg PO BIDCM Patient Comments: supplement ropinirole 0.5 MG tablet 1 mg PO QHS PRN (Reason: restless leg) Patient Comments: restless legs omeprazole 20 MG capsule 20 mg PO BID Patient Comments: acid reflux amitriptyline 100 MG tablet 100 mg PO QHS Patient Comments: mood multivitamin with folic acid 1 TABLET tablet 1 tab PO DAILY Patient Comments: supplement topiramate 100 mg tablet 100 mg PO DAILY Patient Comments: FOR MIGRAINES acetaminophen 500 MG tablet 500 mg PO Q6 PRN (Reason: Pain) Patient Comments: pain fluconazole 150 mg tablet See Rx Instructions .ROUTE .COMPLEX Qty: 3 0RF Dose Instruction: TAKE 1 TABLET BY MOUTH A SINGLE DOSE Rx Instructions: TAKE 1 TABLET BY MOUTH A SINGLE DOSE Primary Care Provider: Monika Robles Referrals: Monika Robles, DO [Primary Care Provider] - 1 Week if not improving Activity Restrictions/Additional Instructions: apply ice to right side of face and head 6-10 times a day for the next 3 to 5 days. Take Tylenol for your pain. You may feel worse over the next 24 to 48 hours. You may hurt in more places and you presently do.
[2023-05-29 15:00] VITALS: RESP 16
== END 2023-05-29 15:27 | disposition home or self-care (01) ==
PROVIDERS: Emergency Provider Emergency Medicine; PCP Internal Medicine; Visit Provider Emergency Medicine
DX: S00.83XA Contusion of other part of head, initial encounter (principal); S05.11XA Contusion of eyeball and orbital tissues, right eye, initial encounter; S90.122A Contusion of left lesser toe(s) without damage to nail, initial encounter; W06.XXXA Fall from bed, initial encounter; G89.29 Other chronic pain; M81.0 Age-related osteoporosis without current pathological fracture; M79.7 Fibromyalgia; Z79.899 Other long term (current) drug therapy
CPT/HCPCS: 70450; 99282

== ENCOUNTER → 2023-06-25 | Outpatient (CLI) | payer MEDICARE, SELFPAY ==
[2023-06-25 15:49] LABS: Absolute Lymphocyte Count 1.52 X10^3/uL (0.83-4.51); Absolute Neutrophil Count 4.2 X10^3/uL (2.0-7.7); Basophil# 0.07 X10^3/uL; Basophil% 1.1 % (0-1); Eosinophil# 0.07 X10^3/uL; Eosinophils% 1.1 % (0-5); Hematocrit 44.3 % (37-47); Hemoglobin 14.1 g/dL (12.0-15.0); Lymphocyte # 1.52 X10^3/ul (0.83-4.51); Lymphocyte % 24.8 % (19-41); Mean Corp Hgb Conc 31.8 g/dL (32-36); Mean Corpuscular Hgb 31.1 pg (27.0-32.0); Mean Corpuscular Volume 97.6 fL (81-99); Mean Platelet Vol. 9.5 fl (6.2-12.0); Monocyte# 0.31 X10^3/uL; Monocyte% 5.1 % (0-10); NRBC Flagged by Analyzer 0 % (0-5); Neutrophil # 4.15 X10^3/uL (2.7-7.7); Neutrophil % 67.7 % (47-70); Platelet Count 249 K/mm3 (150-450); RBC Distribution Width SD 50.1 fl (35.1-43.9); Red Blood Count 4.54 M/mm3 (4.2-5.4); White Blood Count 6.1 K/mm3 (4.4-11.0)
[2023-06-25 16:27] LABS: ALB/GLOB Ratio 1.1 RATIO (0.9-2.4); AST(SGOT) 15 U/L (15-37); Alanine Aminotransfer ALT/SGPT 20 U/L (13-56); Albumin, Serum 3.6 g/dL (3.2-5.0); Alkaline Phosphatase 97 U/L (45-117); Anion Gap 4 (5-15); BUN 29 mg/dL (7-18); BUN/Creat Ratio 32.8 RATIO (10-20); Calcium,Total 8.5 mg/dL (8.5-10.1); Chloride 108 mmol/L (98-107); Creatinine, Serum 0.88 mg/dL (0.55-1.02); EST Glomerular Filtration Rate 67 mL/min (>60); Est Glom Filt Rate - Afr Amer 81 mL/min (>60); Globulin 3.4 g/dL (2.2-4.2); Glucose 86 mg/dL (74-106); Potassium 3.9 mmol/L (3.5-5.1); Sodium Level 138 mmol/L (136-145)
[2023-06-25 18:30] LABS: Amphetamine Urine VISTA NEGATIVE (<1000 ng/mL); Barbiturate Urine VISTA NEGATIVE (< 200 ng/mL); Benzodiazepine Urine VISTA NEGATIVE (< 200 ng/mL); Cocaine Urine VISTA NEGATIVE (< 300 ng/mL); Ecstacy Urine VISTA NEGATIVE (< 500 ng/mL); Methadone Urine VISTA NEGATIVE (< 300 ng/mL); PCP Urine VISTA NEGATIVE (< 25 ng/mL); THC Urine VISTA NEGATIVE (< 50 ng/mL); Vista UDS pH Range 4
== END | disposition home or self-care (01) ==
LOC: MTLAB 14:13
PROVIDERS: PCP Internal Medicine; Referring Provider Internal Medicine Rheumatology; Visit Provider Internal Medicine Rheumatology
DX: L40.59 Other psoriatic arthropathy (principal); F11.20 Opioid dependence, uncomplicated; M79.7 Fibromyalgia; M18.11 Unilateral primary osteoarthritis of first carpometacarpal joint, right hand; M17.0 Bilateral primary osteoarthritis of knee; Z79.899 Other long term (current) drug therapy
CPT/HCPCS: 36415; 80053; 80307; 85025

== ENCOUNTER → 2023-07-26 | Outpatient (CLI) | payer MEDICARE, SELFPAY ==
--- NOTE | 2023-07-26 13:00 | CDU_ITS ---
Reason For Study: Bilateral Carotid Stenosis Rt. Velocities/BP Lt. Velocities/BP Prox CCA 66.6/14.9 cm/sec. Prox CCA 65.5/17.1 cm/sec. Mid CCA 69.9/16.0 cm/sec. Mid CCA 52.3/14.9 cm/sec. Dist CCA 63.3/18.2 cm/sec. Dist CCA 57.8/18.2 cm/sec. Prox ICA 62.2/19.3 cm/sec. Prox ICA 70.5/21.2 cm/sec. Mid ICA 94.1/32.5 cm/sec. Mid ICA 94.2/28.5 cm/sec. Dist ICA 94.1/35.8 cm/sec. Dist ICA 69.1/27.4 cm/sec. Rt. ICA/CCA = 1.3. Lt. ICA/CCA = 1.8. Prox ECA 79.8/8.4 cm/sec. Prox ECA 73.2/10.6 cm/sec. Rt. Vert. 54.5/18.2 cm/sec. Lt. Vert. 84.2/13.8 cm/sec. Right Extracranial There is intimal thickening but no significant atherosclerotic plaque noted in the right common carotid artery. The right common carotid artery is tortuous. There is homogeneous, smooth atherosclerotic plaque noted in the right internal carotid artery. The right internal carotid artery is very tortuous. There is intimal thickening but no significant atherosclerotic plaque noted in the right external carotid artery. Antegrade flow is noted in the right vertebral artery. Left Extracranial There is heterogeneous, irregular atherosclerotic plaque noted in the left common carotid artery. There is intimal thickening but no significant atherosclerotic plaque noted in the left internal carotid artery. The distal left internal carotid artery is not well visualized. There is heterogeneous, irregular atherosclerotic plaque noted in the left external carotid artery. Antegrade flow is noted in the left vertebral artery. Procedure Carotid Duplex 98126. This is a Carotid Duplex examination using B-mode, color flow and specral Doppler. The exam was diagnostic. Exam performed in department. VL/Carotid Duplex Ultrasound Interpretation Summary Mild (<50%) stenosis right extracranial internal carotid. Normal left extracranial internal carotid. Patent and antegrade vertebrals bilaterally. Ordering Physician: Monika Robles Referring Physician: Monika Robles Performed By: James Burrell RVT
== END | disposition home or self-care (01) ==
LOC: CVS 13:00
PROVIDERS: PCP Internal Medicine; Referring Provider Internal Medicine; Visit Provider Internal Medicine
DX: I65.23 Occlusion and stenosis of bilateral carotid arteries (principal)
CPT/HCPCS: 93880

== ENCOUNTER → 2023-08-16 | Outpatient (CLI) | payer MEDICARE, SELFPAY ==
[2023-08-16 15:52] LABS: Absolute Lymphocyte Count 2.27 X10^3/uL (0.83-4.51); Absolute Neutrophil Count 4.1 X10^3/uL (2.0-7.7); Basophil# 0.08 X10^3/uL; Basophil% 1.1 % (0-1); Eosinophils% 1.4 % (0-5); Hematocrit 43.1 % (37-47); Hemoglobin 13.6 g/dL (12.0-15.0); Lymphocyte # 2.27 X10^3/ul (0.83-4.51); Lymphocyte % 31.4 % (19-41); Mean Corp Hgb Conc 31.6 g/dL (32-36); Mean Corpuscular Hgb 31.1 pg (27.0-32.0); Mean Corpuscular Volume 98.6 fL (81-99); Mean Platelet Vol. 9.1 fl (6.2-12.0); Monocyte# 0.65 X10^3/uL; NRBC Flagged by Analyzer 0 % (0-5); Neutrophil # 4.09 X10^3/uL (2.7-7.7); Neutrophil % 56.7 % (47-70); Platelet Count 236 K/mm3 (150-450); RBC Distribution Width CV 13.8 % (11.6-14.6); RBC Distribution Width SD 49.7 fl (35.1-43.9); Red Blood Count 4.37 M/mm3 (4.2-5.4); White Blood Count 7.2 K/mm3 (4.4-11.0)
[2023-08-16 16:12] LABS: ALB/GLOB Ratio 1.1 RATIO (0.9-2.4); AST(SGOT) 54 U/L (15-37); Alanine Aminotransfer ALT/SGPT 93 U/L (13-56); Albumin, Serum 3.5 g/dL (3.2-5.0); Alkaline Phosphatase 125 U/L (45-117); Anion Gap 4 (5-15); BUN 20 mg/dL (7-18); BUN/Creat Ratio 20.2 RATIO (10-20); Calcium,Total 9.3 mg/dL (8.5-10.1); Chloride 112 mmol/L (98-107); Creatinine, Serum 0.99 mg/dL (0.55-1.02); EST Glomerular Filtration Rate 59 mL/min (>60); Est Glom Filt Rate - Afr Amer 71 mL/min (>60); Globulin 3.2 g/dL (2.2-4.2); Glucose 66 mg/dL (74-106); Potassium 4.2 mmol/L (3.5-5.1); Protein, Total 6.7 g/dL (6.4-8.2); Sodium Level 145 mmol/L (136-145)
== END | disposition home or self-care (01) ==
PROVIDERS: PCP Internal Medicine; Referring Provider Internal Medicine Rheumatology; Visit Provider Internal Medicine Rheumatology
DX: L40.59 Other psoriatic arthropathy (principal); M79.7 Fibromyalgia; M18.11 Unilateral primary osteoarthritis of first carpometacarpal joint, right hand; M17.0 Bilateral primary osteoarthritis of knee; Z79.899 Other long term (current) drug therapy
CPT/HCPCS: 36415; 80053; 85025

== ENCOUNTER → 2023-08-28 | Outpatient (CLI) | payer MEDICARE, SELFPAY ==
--- NOTE | 2023-08-28 13:25 | BI_ITS ---
MAMMOGRAPHY - BILATERAL SCREENING REASON FOR EXAM: Female, 67 years old. Routine annual screening examination. PERTINENT HISTORY: Sisters with breast cancer. Aunt with breast cancer. Bilateral breast implants. TECHNIQUE: Digital bilateral breast maura (3D mammographic acquisition) in the CC and MLO projections. 2-D mediolateral oblique (MLO) and craniocaudad (CC) views of both breasts were obtained. CAD: Full Field Digital Mammography with Computer Added Detection was performed. COMPARISON: Comparison is made with prior examination May 11, 2022 and December 05, 2020. FINDINGS: Breast Composition: The breasts are heterogeneously dense, which may obscure small masses. There are no dominant masses or suspicious calcifications. Stable appearance of the bilateral breast implants. No other significant abnormalities are identified. There has been no significant change since the prior study. BI/SCRN MAMM (CAD)W/MAURA BILAT IMPRESSION: Stable bilateral screening mammogram. Yearly follow-up mammogram recommended. (A) ASSESSMENT CATEGORY: BIRADS Category 2: Benign. A letter regarding these results will be sent to the patient by the facility within 30 days. Approximately 10% of breast cancers are not detected by mammography. A normal mammogram should not delay biopsy of a clinically suspicious abnormality. [id number] Electronically Signed: Sj Schaefer MD at 15:04 EST ,
--- NOTE | 2023-08-28 13:25 | BD_ITS ---
STUDY: DUAL ENERGY X-RAY ABSORPTIOMETRY / DXA REASON FOR EXAM: Female, 67 years old. [id number] TECHNIQUE: Bone Mineral Density (BMD) measurements of lumbar spine and left hip were obtained. Imaging of the left forearm was obtained as well. COMPARISON: Comparison is made with prior examination dated April 12, 2021. FINDINGS: Lumbar Spine (L1-L4): g/cm2 (0.882) / T-score (-1.5) / Z-score (0.6) Findings are suggestive of osteopenia with a low fracture risk. Left Femur Total: g/cm2 (0.482) / T-score (-3.8) / Z-score (-2.3) Left Femoral Neck: g/cm2 (0.5-2) / T-score (-2.9) / Z-score (-1.2) Left Forearm: g/cm2 (0.321) / T-score (-4.8) / Z-score (-2.8) The T-Scores on the most recent prior examination were: Lumbar Spine (L1-L4): There has been improvement of bone density since the previous examination. Left Femur Total: which represents a worsening of 8.1%. BD/Dexa Bone Density Study IMPRESSION: The patient is considered osteoporotic as outlined below according to World Mina Organization (WHO) criteria with a high fracture risk. There has been worsening of bone density since the previous examination. Reference Information: The T-score is the number of standard deviations above or below the standard which is normal for young adults at their peak bone mineral density. The World Health Organization (WHO) interprets the T-scores as follows: Above -1 Normal bone density Between -1 and -2.5 Osteopenia Equal to / or below -2.5 Osteoporosis As a practical clinical guideline, osteopenia may be graded as follows: Mild -1 through -1.5 Moderate -1.6 through -2.0 Severe -2.1 through -2.4 The Z-score is the number of standard deviations above or below age-matched controls. A Z-score of less than -1.5 would be considered abnormal. References: 1. NIH Osteoporosis and Related Bone Diseases www osteo.org 2. International Society for Clinical Densitometry www iscd.org 3. National Osteoporosis Foundation www nof.org Electronically Signed: Sj Schaefer MD at 13:03 EST ,
== END | disposition home or self-care (01) ==
LOC: OPBD 13:24
PROVIDERS: PCP Internal Medicine; Referring Provider Internal Medicine; Visit Provider Internal Medicine
DX: Z12.31 Encounter for screening mammogram for malignant neoplasm of breast (principal); Z78.0 Asymptomatic menopausal state
CPT/HCPCS: 77063; 77067; 77080

== ENCOUNTER → 2023-11-06 | Outpatient (CLI) | payer MEDICARE, SELFPAY ==
[2023-11-06 18:01] LABS: Absolute Lymphocyte Count 1.27 X10^3/uL (0.83-4.51); Absolute Neutrophil Count 5.3 X10^3/uL (2.0-7.7); Basophil# 0.05 X10^3/uL; Basophil% 0.7 % (0-1); Eosinophil# 0.07 X10^3/uL; Hematocrit 44.9 % (37-47); Hemoglobin 14.3 g/dL (12.0-15.0); Lymphocyte # 1.27 X10^3/ul (0.83-4.51); Lymphocyte % 18.3 % (19-41); Mean Corp Hgb Conc 31.8 g/dL (32-36); Mean Corpuscular Hgb 30.5 pg (27.0-32.0); Mean Corpuscular Volume 95.7 fL (81-99); Mean Platelet Vol. 9.5 fl (6.2-12.0); Monocyte# 0.24 X10^3/uL; Monocyte% 3.5 % (0-10); NRBC Flagged by Analyzer 0 % (0-5); Neutrophil % 76.2 % (47-70); Platelet Count 239 K/mm3 (150-450); RBC Distribution Width CV 12.1 % (11.6-14.6); RBC Distribution Width SD 42.4 fl (35.1-43.9); Red Blood Count 4.69 M/mm3 (4.2-5.4)
[2023-11-06 18:58] LABS: ALB/GLOB Ratio 1.1 RATIO (0.9-2.4); AST(SGOT) 17 U/L (15-37); Alanine Aminotransfer ALT/SGPT 33 U/L (13-56); Albumin, Serum 3.6 g/dL (3.2-5.0); Alkaline Phosphatase 98 U/L (45-117); Anion Gap 4 (5-15); BUN 20 mg/dL (7-18); BUN/Creat Ratio 24.5 RATIO (10-20); Calcium,Total 8.9 mg/dL (8.5-10.1); Chloride 107 mmol/L (98-107); Creatinine, Serum 0.82 mg/dL (0.55-1.02); EST Glomerular Filtration Rate 74 mL/min (>60); Est Glom Filt Rate - Afr Amer 89 mL/min (>60); Globulin 3.3 g/dL (2.2-4.2); Glucose 140 mg/dL (74-106); Protein, Total 6.9 g/dL (6.4-8.2); Sodium Level 138 mmol/L (136-145)
== END | disposition home or self-care (01) ==
PROVIDERS: PCP Internal Medicine; Referring Provider Internal Medicine Rheumatology; Visit Provider Internal Medicine Rheumatology
DX: L40.59 Other psoriatic arthropathy (principal); Z79.899 Other long term (current) drug therapy
CPT/HCPCS: 36415; 80053; 85025

== ENCOUNTER → 2023-12-04 | Outpatient (CLI) | payer MEDICARE, SELFPAY ==
--- NOTE | 2023-12-04 08:28 | US_ITS ---
STUDY: ABDOMINAL ULTRASOUND - RIGHT UPPER QUADRANT REASON FOR VISIT: Female, 68 years old ELEVATED LIVER ENZYMES TECHNIQUE: Ultrasound evaluation of the right upper quadrant was performed with real-time and static landis-scale imaging. TECHNICAL QUALITY: Adequate. COMPARISON: Comparison is made with prior examination dated January 28, 2015. FINDINGS: Liver: The liver measures 15.4 cm. There is increased echogenicity consistent with fatty infiltration. The bile ducts are within normal limits. There is hepatic color flow. The direction of portal flow is hepatopetal. There is no demonstrated mass lesion. Gallbladder: The patient is status post cholecystectomy. Common Bile Duct (C.B.D.): The common bile duct measures 6.9 mm. Pancreas: There is nonvisualization of the pancreas due to overlying bowel gas. Right Kidney: Normal size of the right kidney. The right kidney measures 9.7 cm x 3.8 cm x 3.4 cm. Normal renal cortex. The right cortex measures 1.1 cm. There is no demonstrated renal mass or cyst. There is no right hydronephrosis. US/Abdomen Limited IMPRESSION: Fatty infiltration of the liver. Status post cholecystectomy. Electronically Signed: Sj Schaefer MD at 10:39 EDT ,
== END | disposition home or self-care (01) ==
PROVIDERS: PCP Internal Medicine; Referring Provider Internal Medicine Rheumatology; Visit Provider Internal Medicine Rheumatology
DX: R74.8 Abnormal levels of other serum enzymes (principal); Z79.899 Other long term (current) drug therapy
CPT/HCPCS: 76705

== ENCOUNTER 2023-12-27 11:37 | Day surgery (SDC) | payer MEDICARE, SELFPAY ==
[2023-12-27] VITALS (11 sets, daily range): BP systolic 91–135; BP diastolic 54–84; PULSE 77–91; RESP 16–18; TEMP 36.1–36.7; O2SAT 95–100
[2023-12-27] MEDS: Lactated Ringers 1,000 ML 15 ML IV (12:16)
[2023-12-27] MEDS: Vancomycin IV 1,000 MG/200 ML BAG 200 MG IV (14:48)
--- NOTE | 2023-12-27 15:10 | RAD_ITS ---
EXAM: XR SPINE, 1 VIEW CLINICAL INDICATION: BATTERY CHANGE, PAIN PUMP TECHNIQUE: Single view of the spine. COMPARISON: No relevant prior studies available. FINDINGS: VERTEBRAE: Unremarkable. Preserved vertebral body height. No fracture. Preservation of the normal spine curvature. No significant facet arthropathy. DISC SPACES: Single intraoperative views obtained which shows the lower thoracic spine. The posterior to the central canal. SOFT TISSUES: Unremarkable. RAD/Spine 1 View Any Level IMPRESSION: Intraoperative view of the lower thoracic spine. Electronically Signed: Ramos Jackson MD at 17:15 EDT ,
[2023-12-27] MEDS: Lidocaine 0.5% (50 ml) 50 ML Vial (15:15)
[2023-12-27] MEDS: Bupiv/Epi 0.25% 30 ML Vial (15:15)
[2023-12-27] MEDS: VIAFLEX IV (15:36)
[2023-12-27] MEDS: HYDROMORPHONE HP IV (15:36)
== END 2023-12-27 18:38 | disposition home or self-care (01) ==
LOC: SDC 11:38 → AC 11:39
PROVIDERS: PCP Internal Medicine; Referring Provider Anesthesiology Pain Medicine; Visit Provider Anesthesiology Pain Medicine
PROC: (CPT 62355; principal; 2023-12-27 12:40)
DX: Z45.1 Encounter for adjustment and management of infusion pump (principal); M06.4 Inflammatory polyarthropathy; G89.4 Chronic pain syndrome; E78.00 Pure hypercholesterolemia, unspecified; E03.9 Hypothyroidism, unspecified; G54.8 Other nerve root and plexus disorders; Z97.8 Presence of other specified devices; Z98.84 Bariatric surgery status; Z79.890 Hormone replacement therapy; Z79.899 Other long term (current) drug therapy
CPT/HCPCS: 62355; 00400; 72020; 76000; J7120; J2405

== ENCOUNTER 2023-12-28 17:11 | Emergency (ER) | payer MEDICARE, SELFPAY ==
[2023-12-28 17:12] VITALS: BP 130/96; PULSE 92; RESP 16; TEMP 36.2; O2SAT 94; BMI 23.1
--- NOTE | 2023-12-28 18:03 | EX.ED.DYSGE1 ---
HPI History of Present Illness Chief Complaint: Overdose Informant: patient and spouse/S.O. Onset/Context/Timing Onset: Today Context: Sudden Onset Timing: Intermittent Quality: Unresponsive Location: Generalized Worsened by: Nothing Relieved by: Narcan Narrative Narrative: Patient presents with unresponsive episode that occurred today. states that he was unable to wake her up this afternoon. states that she was completely unresponsive. Patient had her pain pump changed yesterday. Patient and states that they were up late last night and she took her normal medications. states that he was going to go to the store but went to go tell her that he was leaving when she was unresponsive. called EMS. EMS administered 4 mg of Narcan. Patient became more awake and alert after this. Patient denies any shortness of breath. Patient denies any fevers or chills. [facility] Medical History Ambulates with cane Arthritis DVT (deep venous thrombosis) High cholesterol Easy bruising Back pain Migraine headache History of IBS Gastric reflux CPAP (continuous positive airway pressure) dependence Non-smoker Leg cramps History of pain when walking History of echocardiogram History of stress test Sacral decubitus ulcer Osteopenia Iron deficiency anemia Hypothyroidism Rosacea Diaphragmatic hernia without mention of obstruction or gangrene Postoperative anemia Tachycardia Hypotension due to drugs Chronic lower back pain Chronic pain disorder Inflammatory polyarthropathy Recurrent pneumonia History of pneumonia history of empyema B12 deficiency Fibromyalgia Osteoporosis Gastroesophageal reflux disease Depression Anxiety Home Medications ?Medication ?Instructions ?Recorded ?Last Taken ?Type amitriptyline 100 mg tablet 100 mg PO QHS 04/27/14 Unknown History calcium carbonate 600 mg PO BIDCM 04/27/14 Unknown History multivitamin with folic acid 400 1 tab PO DAILY 04/27/14 Unknown History mcg tablet omeprazole 20 mg capsule,delayed 20 mg PO BID 04/27/14 06/14/15 10:00 History release ropinirole 0.5 mg tablet 1 mg PO QHS PRN restless leg 04/27/14 Unknown History acetaminophen 500 mg tablet 500 mg PO Q6 PRN Pain 06/18/15 Unknown History adalimumab 10 mg/0.2 mL See Rx Instructions subcut .COMPLEX 11/19/19 Unknown History subcutaneous syringe kit (Humira) biotin 5 mg capsule 5 mg PO BID 11/19/19 Unknown History cyanocobalamin (vitamin B-12) 2,500 mcg PO DAILY 11/19/19 Unknown History 2,500 mcg tablet eszopiclone 3 mg tablet (Lunesta) 3 mg PO QHS 11/19/19 Unknown History galcanezumab-gnlm 120 mg/mL 120 mg subcut QMONTH 11/19/19 Unknown History subcutaneous syringe (Emgality) hydromorphone 4 mg tablet 4 mg PO Q4H PRN PRN pain 11/19/19 Unknown History (Dilaudid) levothyroxine 137 mcg capsule 137 mcg PO DAILY 11/19/19 Unknown History loratadine 10 mg capsule (Claritin 10 mg PO DAILY 11/19/19 Unknown History Liqui-Gel) lubiprostone 24 mcg capsule 24 mcg PO BID PRN PRN IBS 11/19/19 Unknown History (Amitiza) milnacipran 25 mg tablet (Savella) 25 mg PO BID 11/19/19 Unknown History mirabegron 50 mg tablet,extended 50 mg PO Q24H 11/19/19 Unknown History release 24 hr (Myrbetriq) potassium chloride 20 mEq 20 meq PO BID 11/19/19 Unknown History tablet,extended release tizanidine 4 mg capsule 4 mg PO QHS 11/19/19 Unknown History topiramate 100 mg tablet 100 mg PO DAILY 11/19/19 Unknown History venlafaxine 150 mg 150 mg PO BID 11/19/19 Unknown History capsule,extended release 24 hr (Effexor XR) zoledronic acid 5 mg/100 mL in See Rx Instructions .Route .yearly 11/19/19 Unknown History mannitol 5 %-water intravenous piggybck (Reclast) Allergy/AdvReac Type Severity Reaction Status Date / Time doxycycline Allergy Severe Anaphylaxis Verified 12/27/23 12:04 benzoyl peroxide Allergy Mild NEEDS Verified 12/27/23 12:04 FOLLOW-UP buprenorphine (From Butrans) Allergy Mild Unknown Verified 12/27/23 12:04 famciclovir (From Famvir) Allergy Mild unknown Verified 12/27/23 12:04 fentanyl (From Duragesic) Allergy Mild unkown Verified 12/27/23 12:04 pregabalin (From Lyrica) Allergy Mild Other Verified 12/27/23 12:04 tetracycline Allergy Mild unknown Verified 12/27/23 12:04 zonisamide (From Zonegran) Allergy Mild Unknown Verified 12/27/23 12:04 latex Allergy Rash Verified 12/27/23 12:04 Penicillins (PCN) Allergy Anaphylaxis Verified 12/27/23 12:04 morphine AdvReac Intermediate Other Verified 12/27/23 12:04 levofloxacin (From Levaquin) AdvReac Mild Itching Verified 12/27/23 12:04 Family History Mother Ovarian cancer Father Black lung Diabetes CAD (coronary artery disease) Lymphoma Sister Myocardial infarction Multiple sclerosis Surgical History Hx of right cataract extraction S/P rotator cuff repair History of arthroscopy of right shoulder S/P abdominoplasty H/O: hysterectomy H/O bilateral salpingo-oophorectomy keft elbow bone chips removed H/O bariatric surgery S/P cholecystectomy S/P appendectomy H/O arthroscopy S/P total knee arthroplasty History of gastric bypass Social History Smoking Status: Never smoker alcohol intake: never substance use type: does not use ROS ROS ED Constitutional Constitutional ED: Denies chills or fever(s) Eyes Eyes: Denies blurry vision or change in vision ENT ENT ED: Denies rhinorrhea or sore throat Cardiovascular Cardiovascular: Denies chest pain or palpitations Respiratory/Chest Respiratory/Chest: Reports cough; Denies dyspnea Gastrointestinal Gastrointestinal: Denies nausea or vomiting Genitourinary Genitourinary ED: Denies dysuria or hematuria Musculoskeletal Musculoskeletal: Reports back pain; Denies neck pain Integumentary Denies abscess or rash Neurologic Neurologic: Denies headache(s) or weakness Allergic/Immunologic Allergic/Immunologic ED: Denies mouth swelling or urticaria EXAM Physical Exam Const Vital Signs: 12/28/23 17:12 12/28/23 19:20 12/28/23 21:00 Temperature 97.2 F L Temperature Source Temporal Pulse Rate 92 99 89 Respiratory Rate 16 15 14 Blood Pressure 130/96 H 115/47 L 106/57 L Blood Pressure Mean 107 69 73 Pulse Ox 94 99 96 Oxygen Delivery Method Room Air Room Air Room Air Positive well nourished and well developed General Appearance ED: well developed and NAD HEENT Reports moist mucous membranes Neck supple and no JVD Resp normal respiratory effort and clear to auscultation bilaterally Cardio regular rate and regular rhythm GI non-distended Palpation: soft and tender RLQ (There is mild postoperative pain over the pain pump site. There is no erythema or warmth noted. There is no discharge or drainage noted. Dressing is intact.) Neuro oriented x3, CN's II-XII intact bilaterally and no sensory deficits noted Sensorium / Orientation: alert Motor Exam: strength 5/5 throughout Psych mental status grossly normal MDM MDM MDM Narrative Medical decision making narrative: Case was discussed with Dr. Blakely. His human resources officer will begin to adjust the patient's pain pump. Patient will be observed here in the emergency department after that. If patient does not have any further unresponsive episodes, patient will be able to be discharged home. Patient and spouse understand and are agreeable with the plan. All questions were answered. Treatment and Re-Evaluation :: Patient was observed here in the emergency department for over 4 hours. Patient remained awake and alert. Patient was instructed to follow-up with her primary care physician and pain management physician in 3 to 5 days. Patient and spouse understood and were agreeable with the plan. All questions were answered. Discharge Plan Triage Chief Complaint: Overdose ED Provider: Raghav Sparrow Dx/Rx/DC Orders Clinical Impression: Opiate overdose, Fibromyalgia Prescriptions: No Action levothyroxine 137 mcg capsule 137 mcg PO DAILY cyanocobalamin (vitamin B-12) 2,500 mcg tablet 2,500 mcg PO DAILY venlafaxine [Effexor XR] 150 mg capsule,extended release 24hr 150 mg PO BID biotin 5 mg capsule 5 mg PO BID Myrbetriq 50 mg tablet extended release 24 hr 50 mg PO Q24H zoledronic eyga-inprhiua-dmamg [Reclast] 5 mg/100 mL piggyback See Rx Instructions .ROUTE .yearly Rx Instructions: .yearly; loratadine [Claritin Liqui-Gel] 10 mg capsule 10 mg PO DAILY potassium chloride 20 mEq tablet extended release 20 meq PO BID eszopiclone [Lunesta] 3 mg tablet 3 mg PO QHS Savella 25 mg tablet 25 mg PO BID Emgality Syringe 120 mg/mL syringe 120 mg SC QMONTH lubiprostone [Amitiza] 24 mcg capsule 24 mcg PO BID PRN PRN (Reason: IBS) Humira 10 mg/0.2 mL syringe kit See Rx Instructions SC .COMPLEX Rx Instructions: inject one - 40 mg/0.8 mL syringe every 2 weeks subcut tizanidine 4 mg capsule 4 mg PO QHS hydromorphone [Dilaudid] 4 mg tablet 4 mg PO Q4H PRN PRN (Reason: pain) calcium carbonate 600 MG tablet 600 mg PO BIDCM Patient Comments: supplement ropinirole 0.5 MG tablet 1 mg PO QHS PRN (Reason: restless leg) Patient Comments: restless legs omeprazole 20 MG capsule 20 mg PO BID Patient Comments: acid reflux amitriptyline 100 MG tablet 100 mg PO QHS Patient Comments: mood multivitamin with folic acid 1 TABLET tablet 1 tab PO DAILY Patient Comments: supplement topiramate 100 mg tablet 100 mg PO DAILY Patient Comments: FOR MIGRAINES acetaminophen 500 MG tablet 500 mg PO Q6 PRN (Reason: Pain) Patient Comments: pain Primary Care Provider: Monika Robles Referrals: Marilyn Blakely MD [Med Staff - Active Staff] - 3-5 Days Monika Robles DO [Primary Care Provider] - 3-5 Days Print Language: Slovak Disposition Disposition: Home, Self Care
[2023-12-28 19:20] VITALS: BP 115/47; PULSE 99; RESP 15; O2SAT 99
[2023-12-28 21:00] VITALS: BP 106/57; PULSE 89; RESP 14; O2SAT 96
[2023-12-28 22:43] VITALS: BP 94/79; PULSE 72; RESP 14; TEMP 36.9; O2SAT 98
== END 2023-12-28 22:44 | disposition home or self-care (01) ==
PROVIDERS: Emergency Provider Emergency Medicine; PCP Internal Medicine; Visit Provider Emergency Medicine
DX: T40.601A Poisoning by unspecified narcotics, accidental (unintentional), initial encounter (principal); R40.4 Transient alteration of awareness; M79.7 Fibromyalgia; X58.XXXA Exposure to other specified factors, initial encounter; E78.00 Pure hypercholesterolemia, unspecified; E03.9 Hypothyroidism, unspecified; M54.50 Low back pain, unspecified; G89.29 Other chronic pain; Z79.890 Hormone replacement therapy; Z79.899 Other long term (current) drug therapy
CPT/HCPCS: 99283

== ENCOUNTER → 2024-01-23 | Outpatient (CLI) | payer MEDICARE, SELFPAY ==
[2024-01-23 17:48] LABS: Absolute Neutrophil Count 2.2 X10^3/uL (2.0-7.7); Basophil# 0.07 X10^3/uL; Basophil% 1.3 % (0-1); Eosinophil# 0.29 X10^3/uL; Eosinophils% 5.2 % (0-5); Hematocrit 39.7 % (37-47); Hemoglobin 12.7 g/dL (12.0-15.0); Lymphocyte % 46.9 % (19-41); Mean Corpuscular Hgb 30.4 pg (27.0-32.0); Mean Platelet Vol. 9.4 fl (6.2-12.0); Monocyte# 0.42 X10^3/uL; Monocyte% 7.6 % (0-10); NRBC Flagged by Analyzer 0 % (0-5); Neutrophil # 2.15 X10^3/uL (2.7-7.7); Neutrophil % 38.8 % (47-70); Platelet Count 262 K/mm3 (150-450); RBC Distribution Width CV 13.5 % (11.6-14.6); RBC Distribution Width SD 46.7 fl (35.1-43.9); Red Blood Count 4.18 M/mm3 (4.2-5.4); White Blood Count 5.5 K/mm3 (4.4-11.0)
[2024-01-23 18:29] LABS: ALB/GLOB Ratio 1.1 RATIO (0.9-2.4); AST(SGOT) 32 U/L (15-37); Alanine Aminotransfer ALT/SGPT 28 U/L (13-56); Albumin, Serum 3.6 g/dL (3.2-5.0); Alkaline Phosphatase 91 U/L (45-117); Anion Gap 7 (5-15); BUN 22 mg/dL (7-18); BUN/Creat Ratio 24.1 RATIO (10-20); Calcium,Total 8.7 mg/dL (8.5-10.1); Chloride 105 mmol/L (98-107); Creatinine, Serum 0.91 mg/dL (0.55-1.02); EST Glomerular Filtration Rate 65 mL/min (>60); Est Glom Filt Rate - Afr Amer 78 mL/min (>60); Globulin 3.3 g/dL (2.2-4.2); Glucose 98 mg/dL (74-106); Potassium 3.9 mmol/L (3.5-5.1); Protein, Total 6.9 g/dL (6.4-8.2); Sodium Level 140 mmol/L (136-145)
== END | disposition home or self-care (01) ==
LOC: MTLAB 16:32
PROVIDERS: PCP Internal Medicine; Referring Provider Internal Medicine Rheumatology; Visit Provider Internal Medicine Rheumatology
DX: L40.59 Other psoriatic arthropathy (principal); Z79.899 Other long term (current) drug therapy; M79.7 Fibromyalgia
CPT/HCPCS: 36415; 80053; 85025

== ENCOUNTER → 2024-02-01 | Outpatient (CLI) | payer MEDICARE, SELFPAY ==
--- NOTE | 2024-02-01 11:14 | US_ITS ---
INDICATION: ELEVATD LIVER ENZYMES. Cholecystectomy. COMPARISON: None. FINDINGS: 76 landis scale ultrasound images of the right upper quadrant. Suboptimal secondary to overlying bowel gas. PORTAL VEIN: Main portal vein is patent with appropriate directional flow and waveform. AORTA: Visualized aorta is of normal caliber. IVC: No obvious IVC filling defect. BILIARY SYSTEM: Common bile duct measures 0.6 cm in diameter. GALLBLADDER:?Absent as per history. LIVER: Unremarkable hepatic parenchyma. PANCREAS: Visualized portions of the pancreas are unremarkable. KIDNEY: 0.3 cm right renal tiny echogenic focus suggesting nephrolith in place. No hydronephrosis. No significant free fluid. US/Abdomen Limited IMPRESSION: 3 mm right nephrolith in place without hydronephrosis. Electronically Signed: Diego Cervantes MD at 6:58 EDT ,
== END | disposition home or self-care (01) ==
LOC: US 11:11
PROVIDERS: PCP Internal Medicine; Referring Provider Internal Medicine Rheumatology; Visit Provider Internal Medicine Rheumatology
DX: R79.89 Other specified abnormal findings of blood chemistry (principal); Z79.899 Other long term (current) drug therapy
CPT/HCPCS: 76705

== ENCOUNTER → 2024-03-21 | Outpatient (CLI) | payer MEDICARE, SELFPAY ==
[2024-03-21 10:34] LABS: Absolute Lymphocyte Count 2.33 X10^3/uL (0.83-4.51); Absolute Neutrophil Count 2.4 X10^3/uL (2.0-7.7); Basophil# 0.09 X10^3/uL; Basophil% 1.6 % (0-1); Eosinophil# 0.27 X10^3/uL; Eosinophils% 4.9 % (0-5); Hematocrit 40.1 % (37-47); Hemoglobin 12.9 g/dL (12.0-15.0); Lymphocyte # 2.33 X10^3/ul (0.83-4.51); Lymphocyte % 42.1 % (19-41); Mean Corp Hgb Conc 32.2 g/dL (32-36); Mean Corpuscular Hgb 31.3 pg (27.0-32.0); Mean Corpuscular Volume 97.3 fL (81-99); Mean Platelet Vol. 8.7 fl (6.2-12.0); Monocyte# 0.47 X10^3/uL; Monocyte% 8.5 % (0-10); NRBC Flagged by Analyzer 0 % (0-5); Neutrophil # 2.35 X10^3/uL (2.7-7.7); Neutrophil % 42.5 % (47-70); Platelet Count 246 K/mm3 (150-450); RBC Distribution Width CV 14.4 % (11.6-14.6); RBC Distribution Width SD 51.2 fl (35.1-43.9); Red Blood Count 4.12 M/mm3 (4.2-5.4); White Blood Count 5.5 K/mm3 (4.4-11.0)
[2024-03-21 11:12] LABS: AST(SGOT) 20 U/L (15-37); Alanine Aminotransfer ALT/SGPT 19 U/L (13-56); Albumin, Serum 3.3 g/dL (3.2-5.0); Alkaline Phosphatase 104 U/L (45-117); Anion Gap 4 (5-15); BUN 13 mg/dL (7-18); BUN/Creat Ratio 15.6 RATIO (10-20); Calcium,Total 8.5 mg/dL (8.5-10.1); Chloride 112 mmol/L (98-107); Creatinine, Serum 0.84 mg/dL (0.55-1.02); EST Glomerular Filtration Rate 72 mL/min (>60); Est Glom Filt Rate - Afr Amer 87 mL/min (>60); Globulin 3.2 g/dL (2.2-4.2); Glucose 90 mg/dL (74-106); Protein, Total 6.5 g/dL (6.4-8.2); Sodium Level 144 mmol/L (136-145); Thyroid Stim Hormone (TSH) 0.438 uIU/mL (0.358-3.740)
[2024-03-23 08:39] LABS: Vitamin D,25 Hydroxy 33.8 ng/mL
== END | disposition home or self-care (01) ==
LOC: LAB 10:10
PROVIDERS: PCP Internal Medicine; Referring Provider Internal Medicine Rheumatology; Visit Provider Internal Medicine Rheumatology
DX: L40.59 Other psoriatic arthropathy (principal); Z79.899 Other long term (current) drug therapy; M79.7 Fibromyalgia; M18.11 Unilateral primary osteoarthritis of first carpometacarpal joint, right hand
CPT/HCPCS: 36415; 80053; 82306; 84443; 85025

== ENCOUNTER → 2024-06-17 | Outpatient (CLI) | payer MEDICARE, SELFPAY ==
[2024-06-17 13:05] LABS: Absolute Lymphocyte Count 2.38 X10^3/uL (0.83-4.51); Absolute Neutrophil Count 2.6 X10^3/uL (2.0-7.7); Basophil# 0.09 X10^3/uL; Basophil% 1.5 % (0-1); Eosinophil# 0.32 X10^3/uL; Eosinophils% 5.2 % (0-5); Hematocrit 41.5 % (37-47); Hemoglobin 13.2 g/dL (12.0-15.0); Lymphocyte # 2.38 X10^3/ul (0.83-4.51); Lymphocyte % 38.7 % (19-41); Mean Corp Hgb Conc 31.8 g/dL (32-36); Mean Corpuscular Hgb 31.6 pg (27.0-32.0); Mean Corpuscular Volume 99.3 fL (81-99); Mean Platelet Vol. 8.9 fl (6.2-12.0); Monocyte# 0.68 X10^3/uL; Monocyte% 11.1 % (0-10); NRBC Flagged by Analyzer 0 % (0-5); Neutrophil # 2.63 X10^3/uL (2.7-7.7); Neutrophil % 42.7 % (47-70); Platelet Count 332 K/mm3 (150-450); RBC Distribution Width CV 13.8 % (11.6-14.6); Red Blood Count 4.18 M/mm3 (4.2-5.4); White Blood Count 6.2 K/mm3 (4.4-11.0)
[2024-06-17 13:44] LABS: AST(SGOT) 21 U/L (15-37); Alanine Aminotransfer ALT/SGPT 21 U/L (13-56); Albumin, Serum 3.2 g/dL (3.2-5.0); Alkaline Phosphatase 93 U/L (45-117); Anion Gap 3 (5-15); BUN 19 mg/dL (7-18); BUN/Creat Ratio 19.1 RATIO (10-20); Calcium,Total 8.5 mg/dL (8.5-10.1); Chloride 108 mmol/L (98-107); EST Glomerular Filtration Rate 58 mL/min (>60); Est Glom Filt Rate - Afr Amer 71 mL/min (>60); Globulin 3.3 g/dL (2.2-4.2); Glucose 212 mg/dL (74-106); Protein, Total 6.5 g/dL (6.4-8.2); Sodium Level 138 mmol/L (136-145)
== END | disposition home or self-care (01) ==
LOC: LAB 12:33
PROVIDERS: PCP Internal Medicine; Referring Provider Internal Medicine Rheumatology; Visit Provider Internal Medicine Rheumatology
DX: L40.59 Other psoriatic arthropathy (principal); M79.7 Fibromyalgia; Z79.899 Other long term (current) drug therapy
CPT/HCPCS: 36415; 80053; 85025

== ENCOUNTER 2024-08-10 17:26 | Emergency (ER) | payer MEDICARE, SELFPAY ==
[2024-08-10 17:28] VITALS: BP 147/65; PULSE 84; RESP 16; TEMP 36.7; O2SAT 98; BMI 25.2
[2024-08-10 17:30] VITALS: BP 147/65; PULSE 84; RESP 16; TEMP 36.7; O2SAT 98
--- NOTE | 2024-08-10 19:30 | US_ITS ---
INDICATION: LT CALF PAIN REDNESS AND SWELLING EXAMINATION: Ultrasound US Venous Duplex LE Unilat / Limited TECHNIQUE: Oliveros scale, pulse wave, and color flow Doppler imaging was performed of the lower extremity venous system. The left greater saphenous, common femoral, femoral, popliteal, posterior tibial and peroneal veins were interrogated. COMPARISON: None. FINDINGS: There is normal compression, augmentation, and color flow signal throughout the visualized deep lower extremity veins. US/Venous Duplex Imag/Limited/Uni IMPRESSION: No sonographic evidence of deep venous thrombosis. Electronically Signed: Rafa Ortiz MD at 21:00 EST ,
--- NOTE | 2024-08-10 19:38 | EDS_ITS ---
HPI History of Present Illness Chief Complaint: Lower Extremity Injury Narrative Narrative: Patient is a 68-year-old female with a past medical history DVT, IBS, hypothyroidism, fibromyalgia, depression, anxiety who presented to the emergency department chief complaint of lower extremity redness and swelling. Patient states that for the past several days she has noted that she has had swelling in lower extremities and starting yesterday she noted that she had a redness in her bilateral lower extremities and states that her left side is worse than her right. States that she called her family doctor and they advised her to come here for further evaluation management. Patient denies any recent travels or injury to her legs. She does feel that her left lower extremity is more swollen than her right lower extremity. Patient states that she is not on a blood thinner medications. [facility] Medical History Ambulates with cane Arthritis DVT (deep venous thrombosis) High cholesterol Easy bruising Back pain Migraine headache History of IBS Gastric reflux CPAP (continuous positive airway pressure) dependence Non-smoker Leg cramps History of pain when walking History of echocardiogram History of stress test Sacral decubitus ulcer Osteopenia Iron deficiency anemia Hypothyroidism Rosacea Diaphragmatic hernia without mention of obstruction or gangrene Postoperative anemia Tachycardia Hypotension due to drugs Chronic lower back pain Chronic pain disorder Inflammatory polyarthropathy Recurrent pneumonia History of pneumonia history of empyema B12 deficiency Fibromyalgia Osteoporosis Gastroesophageal reflux disease Depression Anxiety Home Medications ?Medication ?Instructions ?Recorded ?Last Taken ?Type amitriptyline 100 mg tablet 100 mg PO QHS 04/27/14 Unknown History calcium carbonate 600 mg PO BIDCM 04/27/14 Unknown History multivitamin with folic acid 400 1 tab PO DAILY 04/27/14 Unknown History mcg tablet omeprazole 20 mg capsule,delayed 20 mg PO BID 04/27/14 06/14/15 10:00 History release ropinirole 0.5 mg tablet 1 mg PO QHS PRN restless leg 04/27/14 Unknown History acetaminophen 500 mg tablet 500 mg PO Q6 PRN Pain 06/18/15 Unknown History adalimumab 10 mg/0.2 mL See Rx Instructions subcut .COMPLEX 11/19/19 Unknown History subcutaneous syringe kit (Humira) biotin 5 mg capsule 5 mg PO BID 11/19/19 Unknown History cyanocobalamin (vitamin B-12) 2,500 mcg PO DAILY 11/19/19 Unknown History 2,500 mcg tablet eszopiclone 3 mg tablet (Lunesta) 3 mg PO QHS 11/19/19 Unknown History galcanezumab-gnlm 120 mg/mL 120 mg subcut QMONTH 11/19/19 Unknown History subcutaneous syringe (Emgality) hydromorphone 4 mg tablet 4 mg PO Q4H PRN PRN pain 11/19/19 Unknown History (Dilaudid) levothyroxine 137 mcg capsule 137 mcg PO DAILY 11/19/19 Unknown History loratadine 10 mg capsule (Claritin 10 mg PO DAILY 11/19/19 Unknown History Liqui-Gel) lubiprostone 24 mcg capsule 24 mcg PO BID PRN PRN IBS 11/19/19 Unknown History (Amitiza) milnacipran 25 mg tablet (Savella) 25 mg PO BID 11/19/19 Unknown History mirabegron 50 mg tablet,extended 50 mg PO Q24H 11/19/19 Unknown History release 24 hr (Myrbetriq) potassium chloride 20 mEq 20 meq PO BID 11/19/19 Unknown History tablet,extended release tizanidine 4 mg capsule 4 mg PO QHS 11/19/19 Unknown History topiramate 100 mg tablet 100 mg PO DAILY 11/19/19 Unknown History venlafaxine 150 mg 150 mg PO BID 11/19/19 Unknown History capsule,extended release 24 hr (Effexor XR) zoledronic acid 5 mg/100 mL in See Rx Instructions .Route .yearly 11/19/19 Unknown History mannitol 5 %-water intravenous piggybck (Reclast) sulfamethoxazole 800 1 tab PO Q12H 7 days #14 tabs 08/10/24 Unknown Rx mg-trimethoprim 160 mg tablet (Bactrim DS) Allergy/AdvReac Type Severity Reaction Status Date / Time doxycycline Allergy Severe Anaphylaxis Verified 08/10/24 17:28 benzoyl peroxide Allergy Mild NEEDS Verified 08/10/24 17:28 FOLLOW-UP buprenorphine (From Butrans) Allergy Mild Unknown Verified 08/10/24 17:28 famciclovir (From Famvir) Allergy Mild unknown Verified 08/10/24 17:28 fentanyl (From Duragesic) Allergy Mild unkown Verified 08/10/24 17:28 pregabalin (From Lyrica) Allergy Mild Other Verified 08/10/24 17:28 tetracycline Allergy Mild unknown Verified 08/10/24 17:28 zonisamide (From Zonegran) Allergy Mild Unknown Verified 08/10/24 17:28 latex Allergy Rash Verified 08/10/24 17:28 Penicillins (PCN) Allergy Anaphylaxis Verified 08/10/24 17:28 morphine AdvReac Intermediate Other Verified 08/10/24 17:28 levofloxacin (From Levaquin) AdvReac Mild Itching Verified 08/10/24 17:28 Family History Mother Ovarian cancer Father Black lung Diabetes CAD (coronary artery disease) Lymphoma Sister Myocardial infarction Multiple sclerosis Surgical History Hx of right cataract extraction S/P rotator cuff repair History of arthroscopy of right shoulder S/P abdominoplasty H/O: hysterectomy H/O bilateral salpingo-oophorectomy keft elbow bone chips removed H/O bariatric surgery S/P cholecystectomy S/P appendectomy H/O arthroscopy S/P total knee arthroplasty History of gastric bypass Social History Smoking Status: Never smoker alcohol intake: never substance use type: does not use ROS ROS ED ROS Narrative Constitutional: Denies any fevers, chills, headaches, lightness, dizziness Eyes: Denies changes double vision blurry vision Cardiovascular: Denies chest pain or palpitations Respiratory: Denies coughing wheezing shortness of breath Neurological: Denies any numbness, weakness, tingling Musculoskeletal: Complains of lower extremity swelling and redness as noted above EXAM Physical Exam Narrative Exam Narrative: General: Patient lying in bed rest comfortably did not appear to be acute distress Head: Atraumatic, normocephalic Eyes: PERRL bilateral, EOMI bilateral, no conjunctival injection noted Neck: Soft, supple, trachea midline Cardiovascular: Regular rate and rhythm no murmurs gallops rubs noted Respiratory: Clear to auscultation bilaterally no rales rhonchi or wheezes noted Extremities: Patient has 1+ pitting edema in the right lower extremity and 2+ pitting edema in the left lower extremity, compartment soft and compressible, +5/5 strength noted in the bilateral upper and lower extremities Neurological: Patient follow commands knew that she was at [facility] ye ars 2024 Skin: Warm, dry, intact Const Vital Signs: 08/10/24 17:28 08/10/24 17:30 Temperature 98.1 F 98.1 F Temperature Source Oral Oral Pulse Rate 84 84 Respiratory Rate 16 16 Blood Pressure 147/65 H 147/65 H Blood Pressure Mean 92 92 Pulse Ox 98 98 Oxygen Delivery Method Room Air Room Air MDM MDM MDM Narrative Medical decision making narrative: Patient is a 68-year-old female who presents to the emergency department with a chief complaint of bilateral lower extremity swelling and redness. On the differential diagnose includes includes but not limited to DVT, cellulitis. Once workup is obtained reviewed she will be reevaluated Patient's lower extremity Doppler was negative. On review of the record patient tolerated Bactrim in the past therefore she will be placed on Bactrim. She was encouraged to return with worsening redness after 48 hours of antibiotics or any other concerns. She is encouraged to follow-up with her primary care physician outpatient setting. She is agreeable this plan she would like to go home at this point time all question concerns answered she was discharged home in stable condition. Radiography Diagnostic Testing: Clinical Impression(s) from Imaging Studies Venous Duplex 08/10/24 19:30 IMPRESSION: No sonographic evidence of deep venous thrombosis. Electronically Signed: Rafa Ortiz MD at 21:00 EST Reading Location ID and State: [facility] / [place] Tel , Service support , Discharge Plan Triage Chief Complaint: Lower Extremity Injury ED Provider: Felipe Avila Dx/Rx/DC Orders Clinical Impression: Cellulitis of left leg, Cellulitis of right leg, Bilateral leg edema Prescriptions: New sulfamethoxazole-trimethoprim [Bactrim DS] 800-160 mg tablet 1 tab PO Q12H 7 Days Qty: 14 0RF No Action levothyroxine 137 mcg capsule 137 mcg PO DAILY cyanocobalamin (vitamin B-12) 2,500 mcg tablet 2,500 mcg PO DAILY venlafaxine [Effexor XR] 150 mg capsule,extended release 24hr 150 mg PO BID biotin 5 mg capsule 5 mg PO BID Myrbetriq 50 mg tablet extended release 24 hr 50 mg PO Q24H zoledronic oeva-quxvngry-zruef [Reclast] 5 mg/100 mL piggyback See Rx Instructions .ROUTE .yearly Rx Instructions: .yearly; loratadine [Claritin Liqui-Gel] 10 mg capsule 10 mg PO DAILY potassium chloride 20 mEq tablet extended release 20 meq PO BID eszopiclone [Lunesta] 3 mg tablet 3 mg PO QHS Savella 25 mg tablet 25 mg PO BID Emgality Syringe 120 mg/mL syringe 120 mg SC QMONTH lubiprostone [Amitiza] 24 mcg capsule 24 mcg PO BID PRN PRN (Reason: IBS) Humira 10 mg/0.2 mL syringe kit See Rx Instructions SC .COMPLEX Rx Instructions: inject one - 40 mg/0.8 mL syringe every 2 weeks subcut tizanidine 4 mg capsule 4 mg PO QHS hydromorphone [Dilaudid] 4 mg tablet 4 mg PO Q4H PRN PRN (Reason: pain) calcium carbonate 600 MG tablet 600 mg PO BIDCM Patient Comments: supplement ropinirole 0.5 MG tablet 1 mg PO QHS PRN (Reason: restless leg) Patient Comments: restless legs omeprazole 20 MG capsule 20 mg PO BID Patient Comments: acid reflux amitriptyline 100 MG tablet 100 mg PO QHS Patient Comments: mood multivitamin with folic acid 1 TABLET tablet 1 tab PO DAILY Patient Comments: supplement topiramate 100 mg tablet 100 mg PO DAILY Patient Comments: FOR MIGRAINES acetaminophen 500 MG tablet 500 mg PO Q6 PRN (Reason: Pain) Patient Comments: pain Primary Care Provider: Monika Robles Referrals: Monika Robles DO [Primary Care Provider] - Activity Restrictions/Additional Instructions: Follow-up with your doctor in the outpatient setting. Return for worsening redness while on antibiotics as we discussed here. Take antibiotics as prescribed this was sent to your pharmacy. Your ultrasound did not show any evidence of blood clot. Print Language: Sami Disposition Disposition: Home, Self Care
[2024-08-10 21:18] VITALS: BP 140/78; PULSE 64; RESP 16; TEMP 37.1; O2SAT 99
[2024-08-10] MEDS: Smz/Tmp Ds Tablet 1 TABLET PO (21:19)
== END 2024-08-10 21:19 | disposition home or self-care (01) ==
PROVIDERS: Emergency Provider Emergency Medicine; PCP Internal Medicine; Visit Provider Emergency Medicine
DX: L03.115 Cellulitis of right lower limb (principal); L03.116 Cellulitis of left lower limb; R60.0 Localized edema; E78.00 Pure hypercholesterolemia, unspecified; E03.9 Hypothyroidism, unspecified; M79.7 Fibromyalgia; K58.9 Irritable bowel syndrome, unspecified; Z79.890 Hormone replacement therapy; Z79.899 Other long term (current) drug therapy; Z86.718 Personal history of other venous thrombosis and embolism
CPT/HCPCS: 93971; 99282

== ENCOUNTER → 2024-09-15 | Outpatient (CLI) | payer MEDICARE, SELFPAY ==
[2024-09-15 15:28] LABS: Absolute Lymphocyte Count 3.09 X10^3/uL (0.83-4.51); Absolute Neutrophil Count 2.3 X10^3/uL (2.0-7.7); Basophil# 0.07 X10^3/uL; Basophil% 1.1 % (0-1); Eosinophil# 0.18 X10^3/uL; Eosinophils% 2.9 % (0-5); Hemoglobin 13.5 g/dL (12.0-15.0); Lymphocyte # 3.09 X10^3/ul (0.83-4.51); Lymphocyte % 50.3 % (19-41); Mean Corp Hgb Conc 32.1 g/dL (32-36); Mean Corpuscular Volume 96.6 fL (81-99); Mean Platelet Vol. 10.1 fl (6.2-12.0); Monocyte# 0.48 X10^3/uL; Monocyte% 7.8 % (0-10); NRBC Flagged by Analyzer 0 % (0-5); Neutrophil % 37.6 % (47-70); Platelet Count 242 K/mm3 (150-450); RBC Distribution Width CV 13.7 % (11.6-14.6); RBC Distribution Width SD 48.7 fl (35.1-43.9); Red Blood Count 4.35 M/mm3 (4.2-5.4); White Blood Count 6.1 K/mm3 (4.4-11.0)
[2024-09-15 16:25] LABS: ALB/GLOB Ratio 1.1 RATIO (0.9-2.4); AST(SGOT) 22 U/L (15-37); Alanine Aminotransfer ALT/SGPT 20 U/L (13-56); Albumin, Serum 3.7 g/dL (3.2-5.0); Alkaline Phosphatase 93 U/L (45-117); Anion Gap 4 (5-15); BUN 20 mg/dL (7-18); BUN/Creat Ratio 21.3 RATIO (10-20); Calcium,Total 8.8 mg/dL (8.5-10.1); Chloride 105 mmol/L (98-107); Creatinine, Serum 0.94 mg/dL (0.55-1.02); EST Glomerular Filtration Rate 63 mL/min (>60); Est Glom Filt Rate - Afr Amer 76 mL/min (>60); Globulin 3.5 g/dL (2.2-4.2); Glucose 72 mg/dL (74-106); Potassium 3.9 mmol/L (3.5-5.1); Protein, Total 7.2 g/dL (6.4-8.2); Sodium Level 139 mmol/L (136-145)
== END | disposition home or self-care (01) ==
LOC: MTLAB 13:22
PROVIDERS: PCP Internal Medicine; Referring Provider Internal Medicine Rheumatology; Visit Provider Internal Medicine Rheumatology
DX: L40.59 Other psoriatic arthropathy (principal); M79.7 Fibromyalgia; Z79.899 Other long term (current) drug therapy
CPT/HCPCS: 36415; 80053; 85025

== ENCOUNTER → 2024-11-06 | Outpatient (CLI) | payer MEDICARE, SELFPAY ==
--- NOTE | 2024-11-06 15:00 | BI_ITS ---
EXAM: SCRN MAMM (CAD)W/MAURA BILAT 11/06/2024 CLINICAL HISTORY: F, Age 69 y/o , SCREENING TECHNIQUE: Bilateral screening digital breast tomosynthesis with 2D and 3D images. Computer aided detection. COMPARISON: Prior exam(s) dated 08/28/2023, 05/11/2022. FINDINGS: TISSUE DENSITY: The breast tissue is composed of scattered area of fibroglandular density. There are bilateral saline implants. Bilateral Breast Mammographic Findings: No significant masses, calcifications or other abnormalities are identified. BI/SCRN MAMM (CAD)W/MAURA BILAT IMPRESSION: Right Breast: BIRADS 1 NEGATIVE. Left Breast: BIRADS 1 NEGATIVE. OVERALL FINAL ASSESSMENT: BIRADS 1 NEGATIVE. RECOMMENDATION: Routine annual follow-up in 1 Year A letter with findings and recommendations will be mailed to the patient. Reading Location: [id number]
== END | disposition home or self-care (01) ==
LOC: OPBI 14:58
PROVIDERS: PCP Internal Medicine; Referring Provider Internal Medicine; Visit Provider Internal Medicine
DX: Z12.31 Encounter for screening mammogram for malignant neoplasm of breast (principal)
CPT/HCPCS: 77063; 77067

== ENCOUNTER → 2024-11-11 | Outpatient (CLI) | payer MEDICARE, SELFPAY ==
--- NOTE | 2024-11-11 13:08 | CDU_ITS ---
Reason For Study Reason For Study: Carotid stenosis Rt. Velocities/BP Lt. Velocities/BP Prox CCA 70.2/13.5 cm/sec. Prox CCA 96.1/13.9 cm/sec. Mid CCA 65.5/17.3 cm/sec. Mid CCA 46.8/9.5 cm/sec. Dist CCA 67.4/17.3 cm/sec. Dist CCA 68.8/17.1 cm/sec. Prox ICA 56.3/10.0 cm/sec. Prox ICA 50.1/18.2 cm/sec. Mid ICA 72.1/22.6 cm/sec. Mid ICA 67.7/22.6 cm/sec. Dist ICA 72.0/25.3 cm/sec. Dist ICA 77.3/25.5 cm/sec. Rt. ICA/CCA = 1.1. Lt. ICA/CCA = 1.7. Prox ECA 83.0/8.1 cm/sec. Prox ECA 66.6/5.1 cm/sec. Rt. Vert. 61.4/17.5 cm/sec. Lt. Vert. 34.3/8.3 cm/sec. Right Extracranial There is homogeneous, smooth atherosclerotic plaque noted in the right common carotid artery. There is homogeneous, smooth atherosclerotic plaque noted in the right internal carotid artery. There is heterogeneous, irregular atherosclerotic plaque noted in the right external carotid artery. Antegrade flow is noted in the right vertebral artery. Left Extracranial There is heterogeneous, irregular atherosclerotic plaque noted in the left common carotid artery. There is homogeneous, smooth atherosclerotic plaque noted in the left internal carotid artery. The left internal carotid artery is not well visualized. There is heterogeneous, irregular atherosclerotic plaque noted in the left external carotid artery. Antegrade flow is noted in the left vertebral artery. Procedure Carotid Duplex [id number]. This is a Carotid Duplex examination using B-mode, color flow and specral Doppler. Exam performed in department. VL/Carotid Duplex Ultrasound Interpretation Summary Mild (<50%) stenosis right extracranial internal carotid. Mild (<50%) stenosis left extracranial internal carotid. Patent and antegrade vertebrals bilaterally. Ordering Physician: Monika Robles Referring Physician: Monika Robles Performed By: Grecia Cote, RYANT
== END | disposition home or self-care (01) ==
LOC: CVS 13:08
PROVIDERS: PCP Internal Medicine; Referring Provider Internal Medicine; Visit Provider Internal Medicine
DX: I65.23 Occlusion and stenosis of bilateral carotid arteries (principal)
CPT/HCPCS: 93880

== ENCOUNTER → 2024-12-09 | Outpatient (CLI) | payer MEDICARE, SELFPAY ==
--- NOTE | 2024-12-09 10:06 | NM_ITS ---
PROCEDURE: PARATHYROID SCAN REASON FOR EXAM: HYPERPARATHYROIDISM TECHNIQUE: Nuclear medicine parathyroid imaging performed following intravenous technetium- 99m sestamibi administration. Initial and delayed anterior planar imaging images are provided. RADIOPHARMACEUTICAL: Intravenous administration of 27.2 mCi technetium 99 M sestamibi. COMPARISON: None. FINDINGS: Submandibular glands are well seen, but relative paucity of uptake is seen within the thyroid bed. No significant uptake on either initial or delayed images are seen to suggest the presence of hyperfunctioning parathyroid tissue. NM/Parathyroid Scan IMPRESSION: 1. No evidence hyperfunctioning parathyroid tissue. 2. Relative paucity of uptake within the thyroid bed, including on initial imag ing erodes no no highlight even star if I could tell her if I could tell due narsierra this grade device; recommend clinical and hi storical correlation. Reading Location: [place] [address]
--- NOTE | 2024-12-09 10:06 | RAD_ITS ---
PROCEDURE: CHEST PA AND LATERAL 12/09/2024 REASON FOR EXAM: PA AND LATERAL CXR TECHNIQUE: Frontal and lateral views of the chest. COMPARISON: Chest x-ray dated 10/30/2024. FINDINGS: The heart is normal in size. Minor haziness is present at the left lung base, nonspecific. The left diaphragm is elevated. There is no pneumothorax. No consolidation is seen throughout the lungs. There are surgical clips within the upper abdomen. An IVC Bereket filter is seen. Probable vagal stimulator is seen with generator overlying the right chest. RAD/Chest PA and Lateral IMPRESSION: As above. Reading Location: [facility]
== END | disposition home or self-care (01) ==
PROVIDERS: PCP Internal Medicine; Referring Provider Internal Medicine; Visit Provider Internal Medicine
DX: J18.9 Pneumonia, unspecified organism (principal); E21.3 Hyperparathyroidism, unspecified
CPT/HCPCS: 71046; 78070; A9500

== ENCOUNTER → 2024-12-22 | Outpatient (CLI) | payer MEDICARE, SELFPAY ==
--- NOTE | 2024-12-22 07:57 | CT_ITS ---
PROCEDURE: CHEST WITH CONTRAST 12/22/2024 REASON FOR EXAM: CT CHEST WITH CONTRAST - XRAY 10/30/24, SHOWS WORSENING LLL OPACI TECHNIQUE: Prone and supine chest CT with intravenous contrast, high resolution CT (HRCT) protocol. Coronal and Sagittal reconstruction series were provided. CONTRAST: Isovue-300 VOLUME: 100 mL mL One or more dose reduction techniques were used (e.g., Automated exposure control, adjustment of the mA and/or kV according to patient size, use of iterative reconstruction technique). RADIATION DOSE SUMMARY: CTDlvol: 11.85 mGy DLP: 489.79 mGycm COMPARISON: Prior chest radiograph dated December 09, 2024. FINDINGS: Hardware: Right-sided dual-chamber pacemaker. Bilateral breast implants. Lymph nodes: No hilar or mediastinal lymph nodes. Heart and Vasculature: Normal heart size. No pericardial effusion. No significant coronary artery calcification. Lungs and Airways: Mild elevation of the left hemidiaphragm with increased linear markings at the left lung base suggestive of linear atelectasis and/or scarring. Pleura: No evidence of pleural effusion. Upper Abdomen: Surgical clips are seen in the epigastric region. Nonobstructive calculus in the upper pole calyx of the left kidney. 3.9 cm cyst in the lateral midportion of the left kidney. Status post cholecystectomy. A filter is seen within the inferior vena cava. Bones: Degenerative changes of the thoracic spine. Increased kyphosis. CT/Chest WITH Contrast IMPRESSION: Coronary artery calcification (CAC) is is absent Elevation of the left hemidiaphragm with findings suggestive of scarring at the left lung base. Left renal cysts. Nonobstructive calculus in the upper pole calyx of the left kidney. Reading Location: [place] [address]
== END | disposition home or self-care (01) ==
LOC: CT 07:57
PROVIDERS: PCP Internal Medicine; Referring Provider Internal Medicine; Visit Provider Internal Medicine
DX: R93.89 Abnormal findings on diagnostic imaging of other specified body structures (principal)
CPT/HCPCS: 71260; Q9967; A4216

== ENCOUNTER → 2025-01-19 | Outpatient (CLI) | payer MEDICARE, SELFPAY ==
[2025-01-19 18:06] LABS: Absolute Lymphocyte Count 2.35 X10^3/uL (0.83-4.51); Absolute Neutrophil Count 2.7 X10^3/uL (2.0-7.7); Basophil# 0.06 X10^3/uL; Basophil% 1.1 % (0-1); Eosinophil# 0.18 X10^3/uL; Eosinophils% 3.2 % (0-5); Hematocrit 40.6 % (37-47); Hemoglobin 13.4 g/dL (12.0-15.0); Lymphocyte # 2.35 X10^3/ul (0.83-4.51); Lymphocyte % 41.2 % (19-41); Mean Corpuscular Hgb 31.5 pg (27.0-32.0); Mean Corpuscular Volume 95.3 fL (81-99); Mean Platelet Vol. 9.8 fl (6.2-12.0); Monocyte# 0.34 X10^3/uL; NRBC Flagged by Analyzer 0 % (0-5); Neutrophil # 2.74 X10^3/uL (2.7-7.7); Platelet Count 237 K/mm3 (150-450); RBC Distribution Width CV 14.1 % (11.6-14.6); RBC Distribution Width SD 48.9 fl (35.1-43.9); Red Blood Count 4.26 M/mm3 (4.2-5.4); White Blood Count 5.7 K/mm3 (4.4-11.0)
[2025-01-19 18:30] LABS: ALB/GLOB Ratio 1.6 RATIO (0.9-2.4); AST(SGOT) 26 U/L (<=31); Alanine Aminotransfer ALT/SGPT 17 U/L (<=34); Albumin, Serum 4.3 g/dL (3.4-4.8); Alkaline Phosphatase 95 U/L (35-104); Anion Gap 11 (5-15); BUN 14 mg/dL (4-19); BUN/Creat Ratio 14.4 RATIO (10-20); Calcium,Total 8.9 mg/dL (7.6-11.0); Chloride 101 mmol/L (98-108); Creatinine, Serum 0.95 mg/dL (0.70-1.20); EST Glomerular Filtration Rate 64 (>60); Globulin 2.7 g/dL (2.2-4.2); Glucose 80 mg/dL (70-99); Potassium 4.3 mmol/L (3.3-5.1); Protein, Total 6.9 g/dL (5.9-8.4); Sodium Level 139 mmol/L (133-145); Total Bilirubin 0.66 mg/dL (0.00-1.30)
== END | disposition home or self-care (01) ==
LOC: MTLAB 14:59
PROVIDERS: PCP Internal Medicine; Referring Provider Internal Medicine Rheumatology; Visit Provider Internal Medicine Rheumatology
DX: L40.59 Other psoriatic arthropathy (principal); M79.7 Fibromyalgia; Z79.899 Other long term (current) drug therapy
CPT/HCPCS: 36415; 80053; 85025

== ENCOUNTER 2025-02-08 13:59 | Outpatient (CLI) | payer MEDICARE, SELFPAY ==
[2025-02-08 14:17] VITALS: BP 140/64; PULSE 70; RESP 16; TEMP 35.8; O2SAT 98; BMI 23.8
[2025-02-08] MEDS: 0.9% NaCl Peripheral Flush Adult IV (14:24)
[2025-02-08 14:49] VITALS: BP 117/70; PULSE 79
== END 2025-02-08 23:59 | disposition home or self-care (01) ==
LOC: MEDOUTP 14:01
PROVIDERS: PCP Internal Medicine; Referring Provider Internal Medicine; Visit Provider Internal Medicine
DX: M81.0 Age-related osteoporosis without current pathological fracture (principal)
CPT/HCPCS: 96365; A4216; J3489

== ENCOUNTER → 2025-04-14 | Outpatient (CLI) | payer MEDICARE, SELFPAY ==
[2025-04-14 17:52] LABS: Hematocrit 43.3 % (37-47); Hemoglobin 14.2 g/dL (12.0-15.0); Immature Granulocytes Count 0.020 X10^3/uL (0.0-0.0); Mean Corp Hgb Conc 32.8 g/dL (32-36); Mean Corpuscular Volume 96.7 fL (81-99); Mean Platelet Vol. 10.0 fl (6.2-12.0); NRBC Flagged by Analyzer 0 % (0-5); Platelet Count 220 K/mm3 (150-450); RBC Distribution Width CV 13.6 % (11.6-14.6); RBC Distribution Width SD 48.3 fl (35.1-43.9); Red Blood Count 4.48 M/mm3 (4.2-5.4); White Blood Count 6.0 K/mm3 (4.4-11.0)
[2025-04-14 18:26] LABS: AST(SGOT) 26 U/L (<=31); Alanine Aminotransfer ALT/SGPT 18 U/L (<=34); Albumin, Serum 4.5 g/dL (3.4-4.8); Alkaline Phosphatase 84 U/L (35-104); Anion Gap 12 (5-15); BUN 17 mg/dL (4-19); BUN/Creat Ratio 19.6 RATIO (10-20); Calcium,Total 8.3 mg/dL (7.6-11.0); Carbon Dioxide 22.9 mmol/L (21.0-32.0); Chloride 107 mmol/L (98-108); Globulin 2.5 g/dL (2.2-4.2); Glucose 86 mg/dL (70-99); Potassium 4.4 mmol/L (3.3-5.1)
== END | disposition home or self-care (01) ==
LOC: MTLAB 14:41
PROVIDERS: PCP Internal Medicine; Referring Provider Internal Medicine Rheumatology; Visit Provider Internal Medicine Rheumatology
DX: L40.59 Other psoriatic arthropathy (principal); M79.7 Fibromyalgia; M18.11 Unilateral primary osteoarthritis of first carpometacarpal joint, right hand; M17.0 Bilateral primary osteoarthritis of knee; Z79.899 Other long term (current) drug therapy
CPT/HCPCS: 36415; 80053; 85025

== ENCOUNTER → 2025-05-01 | Outpatient (CLI) | payer MEDICARE, SELFPAY ==
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
[2025-05-01 09:59] LABS: Hematocrit 44.5 % (37-47); Hemoglobin 14.4 g/dL (12.0-15.0); Immature Granulocytes Count 0.020 X10^3/uL (0.0-0.0); Mean Corp Hgb Conc 32.4 g/dL (32-36); Mean Corpuscular Volume 96.9 fL (81-99); Mean Platelet Vol. 9.5 fl (6.2-12.0); NRBC Flagged by Analyzer 0 % (0-5); Platelet Count 246 K/mm3 (150-450); RBC Distribution Width CV 14.0 % (11.6-14.6); RBC Distribution Width SD 48.6 fl (35.1-43.9); Red Blood Count 4.59 M/mm3 (4.2-5.4); White Blood Count 6.7 K/mm3 (4.4-11.0)
[2025-05-01 10:13] LABS: Creatinine, Urine (random) 72.60 mg/dL (28.00-217.00); Microalbumin,Random Urine 49.7 mg/L (<20 mg/L)
[2025-05-01 10:28] LABS: PTHIN 236 pg/mL (11-61)
[2025-05-01 10:45] LABS: Vitamin B12 579 pg/mL (180-914); Vitamin D,25 Hydroxy 51.2 ng/mL (30-100)
[2025-05-01 11:23] LABS: FOLATES,SERUM (FOLIC ACID) > 40.00 ng/mL (4.60-34.80)
== END | disposition home or self-care (01) ==
LOC: LAB 09:11
PROVIDERS: PCP Internal Medicine; Referring Provider Internal Medicine; Visit Provider Internal Medicine
DX: D50.8 Other iron deficiency anemias (principal); E03.9 Hypothyroidism, unspecified; E16.1 Other hypoglycemia; E55.9 Vitamin D deficiency, unspecified; E21.3 Hyperparathyroidism, unspecified
CPT/HCPCS: 36415; 82043; 82306; 82570; 82607; 82746; 83970; 84443; 85025

== ENCOUNTER → 2025-06-29 | Outpatient (CLI) | payer MEDICARE, SELFPAY ==
--- NOTE | 2025-06-29 10:50 | RAD_ITS ---
PROCEDURE: THORACIC SPINE 3 VIEWS 06/29/2025 REASON FOR EXAM: Clinical history of degenerative disc disease TECHNIQUE: Procedure Code: RADSPT Modality: DX Procedure: THORACIC SPINE 3 VIEWS COMPARISON: Thoracic spine radiographs 03/12/2022 FINDINGS: Vertebrae: Redemonstrated thoracolumbar scoliosis. Again seen are chronic vertebral body compression deformities in the midthoracic spine. No definite acute fracture. Discs: Multilevel intervertebral disc space height loss. Alignment: No significant spondylolisthesis. Other: Upper quadrant surgical clips compatible with cholecystectomy. An IVC filter remains in place. Visualized lungs are unremarkable. A sleep apnea device overlies the right hemithorax. RAD/Thoracic Spine 3 Views IMPRESSION: Thoracolumbar scoliosis. Redemonstrated chronic vertebral body compression def ormities in the midthoracic spine. Overall stable multilevel degenerative changes of the thoracic spine. Reading Location: [id number]
== END | disposition home or self-care (01) ==
LOC: MTRAD 10:48
PROVIDERS: PCP Internal Medicine; Referring Provider Anesthesiology Pain Medicine; Visit Provider Anesthesiology Pain Medicine
DX: M51.360 Other intervertebral disc degeneration, lumbar region with discogenic back pain only (principal)
CPT/HCPCS: 72072

== ENCOUNTER → 2025-07-08 | Outpatient (CLI) | payer MEDICARE, SELFPAY ==
[2025-07-08 17:37] LABS: Hematocrit 42.0 % (37-47); Hemoglobin 13.6 g/dL (12.0-15.0); Immature Granulocytes Count 0.040 X10^3/uL (0.0-0.0); Mean Corp Hgb Conc 32.4 g/dL (32-36); Mean Corpuscular Volume 100.0 fL (81-99); Mean Platelet Vol. 9.6 fl (6.2-12.0); NRBC Flagged by Analyzer 0 % (0-5); Platelet Count 290 K/mm3 (150-450); RBC Distribution Width CV 14.2 % (11.6-14.6); RBC Distribution Width SD 51.5 fl (35.1-43.9); Red Blood Count 4.20 M/mm3 (4.2-5.4); White Blood Count 8.7 K/mm3 (4.4-11.0)
[2025-07-08 17:49] LABS: AST(SGOT) 25 U/L (<=31); Alanine Aminotransfer ALT/SGPT 24 U/L (<=34); Albumin, Serum 4.4 g/dL (3.4-4.8); Alkaline Phosphatase 82 U/L (35-104); Anion Gap 11 (5-15); BUN 20 mg/dL (4-19); BUN/Creat Ratio 23.9 RATIO (10-20); Calcium,Total 9.0 mg/dL (7.6-11.0); Carbon Dioxide 24.7 mmol/L (21.0-32.0); Chloride 105 mmol/L (98-108); Globulin 2.4 g/dL (2.2-4.2); Glucose 81 mg/dL (70-99); Potassium 4.3 mmol/L (3.3-5.1)
== END | disposition home or self-care (01) ==
LOC: MTLAB 14:36
PROVIDERS: PCP Internal Medicine; Referring Provider Internal Medicine Rheumatology; Visit Provider Internal Medicine Rheumatology
DX: L40.59 Other psoriatic arthropathy (principal); Z79.899 Other long term (current) drug therapy
CPT/HCPCS: 36415; 80053; 85025